=== PATIENT | female | born 1945 | race Caucasian/White ===

== ENCOUNTER → 2016-03-13 | Outpatient (REF) | payer MEDICARE ==
[~2016-03-13] MED LIST: /FENO48TA OR; ACET25TA5 PO; ACET500T37 PO; ACETAMINOPHEN PM PO; ADV250INH INH; ALBU17IN INH; ALBUTEROL INH; ALLE25CA OR; AMOX875T2 PO; APAP325T PO; AZIT250T3 PO; B-121KIT INJ; CALC1TAB40 PO; CIPR500S PO; CIPR500T3 PO; COMP1TAB PO; CYCL10TA PO; DOXY-278 PO; DOXY100C PO; ESTROPIPATE PO; FENO48TA2 PO; FLON1SPR; FLUTISP; HYDROCORTISONE0.5 % TOP; IPRA1SOL47 NEB; IPRASOL4 INH; K-TA1TAB PO; LANS30CA PO; MULT1TAB8 PO; OMEP20TA7 OR; ONDA1TAB15 PO; ONDA1TAB16 PO; OXYCO5TA PO; PANT40TA2 PO; PRED10TA PO; PRED20TA PO; PROBCAP4 PO; PROT1TAB2 PO; SLOWTAB2 PO; SULF500T2 PO; TYLE1TAB5 PO; VICO5TAB OR; VITAMIN D50000 UNT OR; VITMTA PO; VOLT1GEL24 TD; XANA0.25 PO; ZOVI5CRE4 EX; [UNRECOGNIZED DRUG - OTHER] PO
== END ==
LOC: M LAB REF 12:35
PROVIDERS: ATTEND Internal Medicine Medical Oncology
DX: C34.90 Malignant neoplasm of unspecified part of unspecified bronchus or lung (principal)

== ENCOUNTER → 2016-03-20 | Outpatient (REF) | payer MEDICARE | LOC: M LAB REF 12:14 | PROVIDERS: ATTEND Internal Medicine Medical Oncology | DX: C34.90 Malignant neoplasm of unspecified part of unspecified bronchus or lung (principal) ==

== ENCOUNTER 2016-03-29 12:23 | Inpatient (IN) | payer MEDICARE ==
[~2016-03-29] VITALS: Ht 167.6 cm; Wt 66.5 kg
[~2016-03-29 12:23] MED LIST changes: +OXYC-517 PO; -OXYCO5TA PO
[2016-03-29 14:20] LABS: BASO % 0.2 % (0.0-1.0); EOS % 0.5 % (0.0-3.0); LARGE UNSTAINED CELL # 0.2 K/mm3 (0.0-0.4); LARGE UNSTAINED CELL % 2.2 % (0.0-4.0); LYMPH # 1.1 K/mm3 (1.5-4.5); LYMPH % 10.1 % (24.0-44.0); MEAN CORPUSCULAR HEMOGLOBIN 35.8 pg (27.0-33.0); MEAN CORPUSCULAR VOLUME 96.6 fl (80.0-96.0); MONO # 0.6 K/mm3 (0.0-0.8); MONO % 6.5 % (0.0-5.0); NEUTROPHILS # 7.4 K/mm3 (1.8-7.7); NEUTROPHILS % 80.5 % (36.0-66.0); RED CELL DISTRIBUTION WIDTH 14.9 % (11.5-14.5); WHITE BLOOD COUNT 9.2 K/mm3 (4.0-10.0)
[2016-03-29] MEDS ORDERED: MAGN400T5 PO (14:28)
[2016-03-29] MEDS ORDERED: SERT25TA85 PO (14:28)
[2016-03-29] MEDS ORDERED: PROC10TA PO (14:28)
[2016-03-29] MEDS ORDERED: LEVA12INH INH (14:28)
[2016-03-29] MEDS ORDERED: PRED5TA PO (14:28)
[2016-03-29 14:30] LABS: ANION GAP 10 MEQ/L (8-16); BLOOD UREA NITROGEN 22 MG/DL (7-18); CALCIUM LEVEL 7.5 MG/DL (8.8-10.2); CARBON DIOXIDE LEVEL 26 MEQ/L (21-32); CHLORIDE LEVEL 103 MEQ/L (98-107); CREATININE FOR GFR 1.05 MG/DL (0.55-1.02); GLOMERULAR FILTRATION RATE 55.2 (>39); GLUCOSE, FASTING 93 MG/DL (83-110); SODIUM LEVEL 139 MEQ/L (136-145)
[2016-03-29] MEDS ORDERED: TYLE1TAB5 PO (14:32)
--- NOTE | 2016-03-29 14:38 | REP ---
CHEST, TWO VIEWS: HISTORY: Shortness of breath. COMPARISON: 11/28/2015. There is elevation of the right hemidiaphragm. A parenchymal density is present in the right perihilar region, right middle and lower lobes unchanged from the previous study consistent with scarring and postradiation change. The left lung is clear. The heart is normal in size. The pulmonary vasculature is normal in appearance. The bony structure is intact. An Infusaport catheter is present in the superior vena cava. IMPRESSION: Right perihilar , mid and lower lobe scarring and postradiation change unchanged compared to the previous study. Signed by Checo Rm MD 03/29/2016 02:39 P
[2016-03-29 14:39] LABS: MAGNESIUM LEVEL 0.9 MG/DL (1.8-2.4)
[2016-03-29 14:41] LABS: POTASSIUM SERUM 2.6 MEQ/L (3.5-5.1)
[2016-03-29] MEDS ORDERED: MAGNESIUM OXIDE 400 MG TAB (MAG-OX) As Ordered ONE (15:13)
[2016-03-29] MEDS ORDERED: KCL 10MEQ IN STERILE WATER 100ML As Ordered ONE ×2 (15:13→16:22)
[2016-03-29] MEDS ORDERED: POTASSIUM CHL PWD 20 MEQ PACKET As Ordered ONE (15:13)
[2016-03-29] MEDS ORDERED: MAGNESIUM SULFATE 1 GM/100 ML D5W BAG (10MG/ML) (J3475) As Ordered ONE (15:13)
[2016-03-29 15:18] LABS: PLATELET COUNT, AUTOMATED 57 k/mm3 (150-450)
--- NOTE | 2016-03-29 20:13 | EDDOCDS ---
Nurse's Notes [facility] Name: Carlee Lowe Age: 71 yrs Sex: Female : 1945 Arrival Date: 03/29/2016 Time: 12:23 Bed 10 Private MD: Pamela Cortez MD Diagnosis: Anemia in neoplastic disease;Hypokalemia;Hypomagnesemia;Dyspnea, unspecified-exertional Presentation: 03/29 12:33 Presenting complaint: Patient states: pt states was at DR Levy ---told likely is ms2 anemic due to inside of mouth pale--tried to get blood drawn outside of here (not open where pt rayray)t and told to come here. Adult Sepsis Screening: The patient does not have new or worsening altered mentation. Patient's respiratory rate is less than 22. Systolic blood pressure is greater than 100. Patient has a qSOFA score of 0- Negative Sepsis Screen. Suicide/Homicide risk assessment- the patient denies having any suicidal and/or homicidal ideations and does not present with any other emotional, behavioral or mental health complaints. Status: Patient is not a customer service rep or dependent. Transition of care: patient was not received from another setting of care. 12:33 Acuity: TOMMIE Level 3 ms2 12:33 Method Of Arrival: Walkin/Carried/Asstd ms2 Historical: - Allergies: NSAIDS (chron's exacerbation); OPIOID ANALGESICS (respiratory arrest); Remicade (serum sickness); sensitive to steroidspt on steroids now ---takes low dose; - Home Meds: 1. acetaminophen 325 mg Oral tab 2 tabs every 6 hours (Last dose: Unknown) 2. Advair Diskus 250-50 mcg/dose Inhl dsdv 1 puff 2 times per day new med, has not started (Last dose: 03/29/2016 09:00) 3. albuterol sulfate 90 mcg/actuation Inhl HFAA 2 puffs every 4-6 hours (Last dose: Unknown) 4. Compazine 10 mg Oral tab 1 tab as needed (Last dose: Unknown) 5. cyanocobalamin (vitamin B-12) 1,000 mcg/mL injection soln 1 mL once a month 6. cyclobenzaprine 10 mg Oral tab 1 tab as needed 7. DuoNeb 0.5 mg-3 mg(2.5 mg base)/3 mL Inhl nebu 3 mL twice a day (Last dose: Unknown) 8. fluticasone 50 mcg/actuation nasal spsn 2 sprays once daily (Last dose: Unknown) 9. multivitamin Oral cap 1 tab daily (Last dose: 03/28/2016 09:00) 10. ondansetron HCl 8 mg Oral tab 1 tab every 8 hours (Last dose: Unknown) 11. potassium chloride 20 mEq Oral TbER 1 tab once daily (Last dose: 03/28/2016 09:00) 12. prednisone 7mg Oral tab once daily (Last dose: 03/28/2016 09:00) 13. Protonix 40 mg Oral grps 1 packet once daily (Last dose: 03/28/2016 09:00) 14. Slow-Mag 71.5 mg Oral TbEC three times a day (Last dose: 03/28/2016 09:00) 15. Ventolin HFA 90 mcg/actuation Nebulizer HFAA 2 puffs every 4 hours (Last dose: 03/28/2016) 16. Voltaren 1% Oral twice a day (Last dose: Unknown) 17. Xanax 0.25 mg Oral tab 1 tab nightly (Last dose: Unknown) 18. Xopenex 1.25 mg/3 mL Inhl nebu 3 mL as needed (Last dose: Unknown) 19. Zoloft 25 mg Oral tab 1 tab once daily (Last dose: 03/28/2016 09:00) - PMHx: Actinic Keratosis; Anemia; Anxiety; Chron's Disease; dysplastic nevus; GERD; hyperglyceridemia; hyperlipidemia; Hypertension; hypokalemia; hypomagnesiemia; leukopenia; Lumbago; lung cancer; Osteoarthritis; pancytopenia; tachycardia; Vitamin B, D deficiency; - PSHx: abdominal; Hysterectomy; bowel resections; Cholecystectomy; Tonsillectomy; - Social history: Smoking status: Patient states former smoker of tobacco. No barriers to communication noted, The patient speaks fluent Senegalese. - Family history: Not pertinent. - : The pt / caregiver states he / she is not on anticoagulants. Home medication list is obtained from the patient. - Exposure Risk Screening:: None identified. Screenin:46 Screening information is obtained from the patient. Fall risk: No risks identified. ms2 Assistance ADL's: requires no assistance with activities of daily living. Abuse/DV Screen: The patient / caregiver reports he/she is: not in a situation that causes fear, pain or injury. Nutritional screening: No deficits noted. Advance Directives: Currently, there is no health care proxy. There is no active DNR order. There is no living will. There is no Power of Negative Checker. Advance directive information has not previously been placed in an [facility] medical record. Further advance directive information is declined. home support is adequate. Assessment: 14:00 General: Appears in no apparent distress, Behavior is appropriate for age, cooperative. hs1 Neurological: Reports weakness. Cardiovascular: Rhythm is regular. Respiratory: Airway is patent Respiratory effort is even, unlabored, Respiratory pattern is regular, symmetrical, Breath sounds are clear bilaterally. GI: Reports diarrhea, hx of chrons disease. Derm: Skin is pink, warm & dry. normal. 15:35 General: Appears in no apparent distress, comfortable, Behavior is appropriate for age, hs1 cooperative. Pain: Denies pain. Neurological: Level of Consciousness is awake, alert, obeys commands, Oriented to person, place, time, Stock Buyer are equal bilaterally Gait is steady. Cardiovascular: Rhythm is sinus rhythm No ectopy. Respiratory: No deficits noted. : No deficits noted. 16:45 Reassessment: Patient appears in no apparent distress at this time. Patient tolerating hs1 infusions well. Patient ambulated to restroom with no difficulty. Aware of admission status and that hospitalist and nursing staff will be in to ask questions and evaluate. Patient states she is hungry and food given. . 17:30 General: Appears in no apparent distress, comfortable, Behavior is appropriate for age, hs1 cooperative. Cardiovascular: Rhythm is sinus rhythm No ectopy. Respiratory: No deficits noted. Derm: No deficits noted. 18:02 General: Appears in no apparent distress, comfortable, Behavior is appropriate for age, hs1 cooperative, Pt tolerating blood transfusion started at 1740. Patient aware of all signs and symptoms of blood transfusion and will call out to nursing staff if needs arise or patient changes. . 19:07 General: Appears in no apparent distress, comfortable, Behavior is appropriate for age, hs1 cooperative, 1st unit of blood completed at this time. Patient resting with no issues having dinner at this time. . 19:48 General: Appears in no apparent distress, comfortable, Behavior is appropriate for age, ko2 cooperative. Pain: Denies pain. Neurological: Level of Consciousness is awake, alert, obeys commands. Respiratory: No deficits noted. Derm: No deficits noted. Vital Signs: 12:24 BP 121 / 64; Pulse 104; Resp 18 S; Temp 98.2(O); Pulse Ox 98% on R/A; Weight 65.32 kg dd6 (R); Height 5 ft. 6 in. (167.64 cm) (R); 15:48 BP 127 / 60 (auto/); hs1 15:48 Pulse 96 MON; Pulse Ox 98% ; hs1 16:08 BP 122 / 65 (auto/); hs1 16:08 Pulse 106 MON; Pulse Ox 98% ; hs1 17:36 Pulse 106 MON; Pulse Ox 97% ; hs1 17:37 BP 103 / 55 (auto/); hs1 17:53 Pulse 108 MON; Pulse Ox 96% ; hs1 17:54 BP 109 / 53 (auto/); hs1 18:15 BP 152 / 71 (auto/); ko2 18:17 Pulse 78 MON; Pulse Ox 98% ; ko2 18:57 BP 111 / 80 (auto/); hs1 18:57 Pulse 116 MON; Resp 18; Pain 0/10; hs1 12:24 Body Mass Index 23.24 (65.32 kg, 167.64 cm) dd6 Vitals: 12:24 Log In Time: March 29, 2016 at 12:22. dd6 ED Course: 12:24 Patient visited by Zenon Whittaker PCA. dd6 12:24 Pamela Cortez is Private Physician. dd6 12:24 Patient moved to Waiting dd6 12:27 Mariana Scott,RN is Primary Nurse. ms2 12:27 Patient moved to 10 ms2 12:33 Patient visited by Rafael Ring,JOSH. ms2 12:38 Triage Initiated ms2 12:46 The patient / caregiver is instructed regarding the plan of care and ED course. ms2 12:53 Shadia Cortez FNP is PHCP. le 12:55 Patient visited by Shadia Cortez FNP. le 12:55 Patient visited by Shadia Cortez FNP. le 13:43 Patient visited by Tay Perez PCA. jrd 13:43 EKG done. (by ED staff). Reviewed by Shadia JIMÉNEZ. jrd 14:45 Accessed using accessed w/ # 20 [place] needle, sterile technique, per hospital protocol. hs1 InfusaPort in patient's anterior aspect of right upper chest. Clean & dry. Dressing intact. Good blood return. Flushes easily. 14:53 Patient visited by Kaitlin Poole RN. hs1 15:31 Chest, 2 View (pa\E\lat) Returned. EDMS 15:37 Kirstie Steward is Hospitalizing Provider. le 16:42 [facility] Payment Agreement was scanned into [employer] and attached to record. jp5 18:07 No procedures done that require assistance. hs1 18:58 Harper Chavez,JOSH is Primary Nurse. ko2 Administered Medications: 15:23 Drug: Magnesium Oxide 400 mg [magnesium oxide 400 mg tablet (1 tabs)] Route: PO; hs1 15:23 Drug: Magnesium Sulfate 1 grams [magnesium sulfate 1 gram/100 mL in dextrose 5 % hs1 intravenous piggyback] {Co-Signature: srm (Rosa Rodgers RN).} Route: IVPB; Infused Over: 1 hrs; Site: Implantable Access Device; 16:43 Follow up: IV Intake: 100ml hs1 19:10 Follow up: IV Status: Completed infusion hs1 15:23 Drug: Potassium Chloride 40 mEq [potassium chloride 20 mEq oral packet (2 packets)] hs1 Route: PO; 15:23 Drug: Potassium Chloride in 100cc sterile water 20 mEq [potassium chloride 10 mEq/100 hs1 mL intravenous piggyback] {Co-Signature: uriel (Rosa Rodgers RN).} Route: IV; Rate: 100 mL/hr; Infused Over: 1 hrs; Site: Implantable Access Device; 16:41 Follow up: IV Status: Completed infusion; IV Intake: 200ml hs1 Intake: 16:41 IV: 200.00ml; Total: 200.00ml. hs1 16:43 IV: 100.00ml; Total: 300.00ml. hs1 19:09 IV: 450.00ml (PRBC); Total: 750.00ml. hs1 Order Results: Lab Order: CBC with Diff; SPEC'M 03/29/16 13:27 Test: WHITE BLOOD COUNT; Value: 9.2; Range: 4.0-10.0; Units: K/mm3; Status: F Test: RED BLOOD COUNT; Value: 2.29; Range: 4.00-5.40; Abnormal: Below low normal; Units: M/mm3; Status: F Test: HEMOGLOBIN; Value: 8.2; Range: 12.0-16.0; Abnormal: Below low normal; Units: g/dl; Status: F Test: HEMATOCRIT; Value: 22.1; Range: 36.0-47.0; Abnormal: Below low normal; Units: %; Status: F Test: MEAN CORPUSCULAR VOLUME; Value: 96.6; Range: 80.0-96.0; Abnormal: Above high normal; Units: fl; Status: F Test: MEAN CORPUSCULAR HEMOGLOBIN; Value: 35.8; Range: 27.0-33.0; Abnormal: Above high normal; Units: pg; Status: F Test: MEAN CORPUSCULAR HGB CONC; Value: 37.0; Range: 32.0-36.5; Abnormal: Above high normal; Units: g/dl; Status: F Test: RED CELL DISTRIBUTION WIDTH; Value: 14.9; Range: 11.5-14.5; Abnormal: Above high normal; Units: %; Status: F Test: PLATELET COUNT, AUTOMATED; Value: 57; Range: 150-450; Abnormal: Below low normal; Units: k/mm3; Status: F Test: NEUTROPHILS %; Value: 80.5; Range: 36.0-66.0; Abnormal: Above high normal; Units: %; Status: F Test: LYMPH %; Value: 10.1; Range: 24.0-44.0; Abnormal: Below low normal; Units: %; Status: F Test: MONO %; Value: 6.5; Range: 0.0-5.0; Abnormal: Above high normal; Units: %; Status: F Test: EOS %; Value: 0.5; Range: 0.0-3.0; Units: %; Status: F Test: BASO %; Value: 0.2; Range: 0.0-1.0; Units: %; Status: F Test: LARGE UNSTAINED CELL %; Value: 2.2; Range: 0.0-4.0; Units: %; Status: F Test: NEUTROPHILS #; Value: 7.4; Range: 1.8-7.7; Units: K/mm3; Status: F Test: LYMPH #; Value: 1.1; Range: 1.5-4.5; Abnormal: Below low normal; Units: K/mm3; Status: F Test: MONO #; Value: 0.6; Range: 0.0-0.8; Units: K/mm3; Status: F Test: EOS #; Value: 0.0; Range: 0.0-0.50; Units: K/mm3; Status: F Test: BASO #; Value: 0.0; Range: 0.0-0.2; Units: K/mm3; Status: F Test: LARGE UNSTAINED CELL #; Value: 0.2; Range: 0.0-0.4; Units: K/mm3; Status: F Lab Order: Type & Screen; SPEC'M 03/29/16 13:27 Test: BLOOD TYPE; Value: A POS; Status: F Test: AB SCREEN (INDIRECT DWAYNE)GEL; Value: POSITIVE; Status: F Lab Order: BMP; SPEC'M 03/29/16 13:27 Test: GLUCOSE, FASTING; Value: 93; Range: 83-110; Units: MG/DL; Status: F Test: BLOOD UREA NITROGEN; Value: 22; Range: 7-18; Abnormal: Above high normal; Units: MG/DL; Status: F Test: CREATININE FOR GFR; Value: 1.05; Range: 0.55-1.02; Abnormal: Above high normal; Units: MG/DL; Status: F Test: GLOMERULAR FILTRATION RATE; Value: 55.2; Range: >39; Status: F Test: SODIUM LEVEL; Value: 139; Range: 136-145; Units: MEQ/L; Status: F Test: POTASSIUM SERUM; Value: 2.6; Range: 3.5-5.1; Abnormal: Critical Low; Units: MEQ/L; Status: F Test: CHLORIDE LEVEL; Value: 103; Range: 98-107; Units: MEQ/L; Status: F Test: CARBON DIOXIDE LEVEL; Value: 26; Range: 21-32; Units: MEQ/L; Status: F Test: ANION GAP; Value: 10; Range: 8-16; Units: MEQ/L; Status: F Test: CALCIUM LEVEL; Value: 7.5; Range: 8.8-10.2; Abnormal: Below low normal; Units: MG/DL; Status: F Test Note: ; Units are mL/min/1.73 m2 Chronic Kidney Disease Staging per NKF: Stage I & II GFR >=60 Normal to Mildly Decreased Stage III GFR 30-59 Moderately Decreased Stage IV GFR 15-29 Severely Decreased Stage V GFR <15 Very Little GFR Left ESRD GFR <15 on [employer] DIRECTIONAL Lab Order: Magnesium Level; SPEC'M 03/29/16 13: Test: MAGNESIUM LEVEL; Value: 0.9; Range: 1.8-2.4; Abnormal: Critical Low; Units: MG/DL; Status: F Lab Order: Troponin; SPEC'M 03/29/16 Test: TROPONIN I; Value: < 0.02; Range: < 0.10; Units: NG/ML; Status: F Test Note: ; Troponin I Reference Interval for [employer] LOCI: 99th Percentile= 0.00-0.045 ng/ml Risk Stratification: <= 0.10 ng/ml Decreased Risk for Adverse Clinical Events. 0.10-1.50 ng/ml Increased Risk for Adverse Clinical Events. Evaluation of additional criterion and/or repeat testing in 2-6 hours is suggested to rule out myocardial damage. >= 1.50 ng/ml Indicative of Myocardial Injury. Lab Order: ANTIBODY IDENTIFICATION; SPEC'M 03/29/16:27 Test: ANTIBODY IDENTIFICATION; Value: Anti-K; Status: F Radiology Order: Chest, 2 View (pa\E\lat) Test: Chest, 2 View (pa\E\lat) REASON FOR EXAMINATION: Shortness of Breath; CHEST, TWO VIEWS:; ; HISTORY: Shortness of breath.; ; COMPARISON: 11/28/2015.; ; There is elevation of the right hemidiaphragm. A parenchymal density is present; in the right perihilar region, right middle and lower lobes unchanged from the; previous study consistent with scarring and postradiation change. The left lung; is clear. The heart is normal in size. The pulmonary vasculature is normal in; appearance. The bony structure is intact. An Infusaport catheter is present in; the superior vena cava.; ; IMPRESSION:; ; Right perihilar , mid and lower lobe scarring and postradiation change unchanged; compared to the previous study.; ; ; Signed by; Checo Rm MD 03/29/2016 02:39 P; Outcome: 15:37 Decision to Hospitalize by Provider. le 19:09 Condition: stable. hs1 20:09 Discharge Assessment: Patient awake, alert and oriented x 3. No cognitive and/or ko2 functional deficits noted. Patient verbalized understanding of disposition instructions. patient administered narcotics - no. The following High Risk Discharge criteria are identified: None. Admitted to PCU accompanied by nurse, accompanied by tech, via stretcher, on monitor, with chart. Admission hand-off: Report Faxed Fax receipt verified by Sherrill IMPROVEMENT LEADER. Property :Personal belongings accompany Pt. 20:10 No special radiology studies were completed. ko2 20:13 Patient left the ED. lilian Signatures: Dispatcher [employer] EDMS Rafael Ring,RN RN ms2 Soco Arita RN RN Shadia Gonzales, ICING AND GLAZE MAKER ICING AND GLAZE MAKER Zenon Dodson, EASEMENT MAN EASEMENT MAN dd6 Kaitlin Poole RN RN hs1 Harper Chavez RN RN ko2 Tay Perez, EASEMENT MAN EASEMENT MAN Warner Lovell jp5 Rosa Rodgers RN srm MTDD
--- NOTE | 2016-03-29 20:13 | EDDOCDS ---
Physician Documentation [facility] Name: Carlee Lowe Age: 71 yrs Sex: Female : 1945 Arrival Date: 03/29/2016 Time: 12:23 Bed 10 Private MD: Pamela Cortez MD Disposition: 03/29/16 15:37 Hospitalization ordered by Kirstie Steward for Observation. Preliminary diagnosis are Anemia in neoplastic disease, Hypokalemia, Hypomagnesemia, Dyspnea, unspecified - exertional. - Bed requested for PCU. - Status is Observation. mar - Condition is Stable. - Problem is new. - Symptoms are unchanged. Historical: - Allergies: NSAIDS (chron's exacerbation); OPIOID ANALGESICS (respiratory arrest); Remicade (serum sickness); sensitive to steroidspt on steroids now ---takes low dose; - Home Meds: 1. acetaminophen 325 mg Oral tab 2 tabs every 6 hours (Last dose: Unknown) 2. Advair Diskus 250-50 mcg/dose Inhl dsdv 1 puff 2 times per day new med, has not started (Last dose: 03/29/2016 09:00) 3. albuterol sulfate 90 mcg/actuation Inhl HFAA 2 puffs every 4-6 hours (Last dose: Unknown) 4. Compazine 10 mg Oral tab 1 tab as needed (Last dose: Unknown) 5. cyanocobalamin (vitamin B-12) 1,000 mcg/mL injection soln 1 mL once a month 6. cyclobenzaprine 10 mg Oral tab 1 tab as needed 7. DuoNeb 0.5 mg-3 mg(2.5 mg base)/3 mL Inhl nebu 3 mL twice a day (Last dose: Unknown) 8. fluticasone 50 mcg/actuation nasal spsn 2 sprays once daily (Last dose: Unknown) 9. multivitamin Oral cap 1 tab daily (Last dose: 03/28/2016 09:00) 10. ondansetron HCl 8 mg Oral tab 1 tab every 8 hours (Last dose: Unknown) 11. potassium chloride 20 mEq Oral TbER 1 tab once daily (Last dose: 03/28/2016 09:00) 12. prednisone 7mg Oral tab once daily (Last dose: 03/28/2016 09:00) 13. Protonix 40 mg Oral grps 1 packet once daily (Last dose: 03/28/2016 09:00) 14. Slow-Mag 71.5 mg Oral TbEC three times a day (Last dose: 03/28/2016 09:00) 15. Ventolin HFA 90 mcg/actuation Nebulizer HFAA 2 puffs every 4 hours (Last dose: 03/28/2016) 16. Voltaren 1% Oral twice a day (Last dose: Unknown) 17. Xanax 0.25 mg Oral tab 1 tab nightly (Last dose: Unknown) 18. Xopenex 1.25 mg/3 mL Inhl nebu 3 mL as needed (Last dose: Unknown) 19. Zoloft 25 mg Oral tab 1 tab once daily (Last dose: 03/28/2016 09:00) - PMHx: Actinic Keratosis; Anemia; Anxiety; Chron's Disease; dysplastic nevus; GERD; hyperglyceridemia; hyperlipidemia; Hypertension; hypokalemia; hypomagnesiemia; leukopenia; Lumbago; lung cancer; Osteoarthritis; pancytopenia; tachycardia; Vitamin B, D deficiency; - PSHx: abdominal; Hysterectomy; bowel resections; Cholecystectomy; Tonsillectomy; - Social history: Smoking status: Patient states former smoker of tobacco. No barriers to communication noted, The patient speaks fluent Macanese. - Family history: Not pertinent. - : The pt / caregiver states he / she is not on anticoagulants. Home medication list is obtained from the patient. - Exposure Risk Screening:: None identified. Vital Signs: 03/29 12:24 BP 121 / 64; Pulse 104; Resp 18 S; Temp 98.2(O); Pulse Ox 98% on R/A; Weight 65.32 kg / dd6 144.01 lbs (R); Height 5 ft. 6 in. (167.64 cm) (R); 15:48 BP 127 / 60 (auto/); hs1 15:48 Pulse 96 MON; Pulse Ox 98% ; hs1 16:08 BP 122 / 65 (auto/); hs1 16:08 Pulse 106 MON; Pulse Ox 98% ; hs1 17:36 Pulse 106 MON; Pulse Ox 97% ; hs1 17:37 BP 103 / 55 (auto/); hs1 17:53 Pulse 108 MON; Pulse Ox 96% ; hs1 17:54 BP 109 / 53 (auto/); hs1 18:15 BP 152 / 71 (auto/); ko2 18:17 Pulse 78 MON; Pulse Ox 98% ; ko2 18:57 BP 111 / 80 (auto/); hs1 18:57 Pulse 116 MON; Resp 18; Pain 0/10; hs1 12:24 Body Mass Index 23.24 (65.32 kg, 167.64 cm) dd6 MDM: 13:23 Misc. Nursing Order ordered. le 13:23 Orthostatic VS ordered. le 13:24 CBC with Diff Ordered. EDMS 13:24 BMP Ordered. EDMS 13:24 Magnesium Level Ordered. EDMS 13:24 Troponin Ordered. EDMS 13:24 Chest, 2 View (pa\E\lat) Ordered. EDMS 13:24 Type & Screen Ordered. EDMS 13:24 ECG WITH READING ER PHYS+CARDIAG ordered. EDMS 14:41 Magnesium Oxide 400 mg PO once ordered. le 14:41 Magnesium Sulfate 1 grams IVPB once over 1 hrs; administer over at least 1 hour ordered.le 14:41 Potassium Chloride Packet 40 mEq PO once ordered. le 14:41 Potassium Chloride in 100cc sterile water 20 mEq IV at 100 mL/hr once over 1 hrs le ordered. 14:42 BED REQUEST+ADM ordered. EDMS 14:42 Front Desk Manager/Pulse Ox/q 30 min VS ordered. le 15:20 BMP Reviewed. le 15:20 Magnesium Level Reviewed. le 15:20 Type & Screen Reviewed. le 15:20 Troponin Reviewed. le 15:20 CBC with Diff Reviewed. le 15:29 Transfuse 3 units PRBCs. Ensure ordered in lab. ordered. le 15:30 Type and Cross, Packed Cells Ordered. EDMS 16:02 ANTIBODY IDENTIFICATION Ordered. EDMS 16:42 [facility] Payment Agreement was scanned into [employer] and attached to record. jp5 16:42 Financial registration complete. jp5 17:07 REGULAR DIET ordered. EDMS 17:09 Admission / Observation Status ordered. EDMS 19:30 PHOSPHOROUS LEVEL Ordered. EDMS 19:31 CBC WITH DIFFERENTIAL Ordered. EDMS 19:31 COMPLETE COMPHRENSIVE METABOLI Ordered. EDMS 19:31 MAGNESIUM LEVEL Ordered. EDMS 19:48 POTASSIUM LEVEL Ordered. EDMS 19:48 CDIFF PCR Ordered. EDMS 19:51 ELECTROCARDIOGRAM ADULT ordered. EDMS Administered Medications: 15:23 Drug: Magnesium Oxide 400 mg [magnesium oxide 400 mg tablet (1 tabs)] Route: PO; hs1 15:23 Drug: Magnesium Sulfate 1 grams [magnesium sulfate 1 gram/100 mL in dextrose 5 % hs1 intravenous piggyback] {Co-Signature: uriel (Rosa Rodgers RN).} Route: IVPB; Infused Over: 1 hrs; Site: Implantable Access Device; 16:43 Follow up: IV Intake: 100ml hs1 19:10 Follow up: IV Status: Completed infusion hs1 15:23 Drug: Potassium Chloride 40 mEq [potassium chloride 20 mEq oral packet (2 packets)] hs1 Route: PO; 15:23 Drug: Potassium Chloride in 100cc sterile water 20 mEq [potassium chloride 10 mEq/100 hs1 mL intravenous piggyback] {Co-Signature: uriel (Rosa Rodgers RN).} Route: IV; Rate: 100 mL/hr; Infused Over: 1 hrs; Site: Implantable Access Device; 16:41 Follow up: IV Status: Completed infusion; IV Intake: 200ml hs1 Signatures: Dispatcher [employer] EDMS Rafael RingRN JOSH Arita, Soco Rubi, RN Shadia Giraldo FNP FNP le Ogden, Kari, RN RN ko2 Warner Frausto jp5 Andre Wyman RN RN sa Sherrill, Hannah RN hs1 Rosa Rodgers RN srm The chart was reviewed and I authenticate all verbal orders and agree with the evaluation and treatment provided.Corrections: (The following items were deleted from the chart) 14:43 13:43 BED REQUEST+ADM ordered. EDMS EDMS 15:36 15:31 TYPE & SCREEN ordered. EDMS EDMS Attachments: 16:42 [facility] Payment Agreement jp5 MTDD
--- NOTE | 2016-03-29 20:14 | HPE ---
DATE OF ADMISSION: 03/29/2016 PRIMARY CARE PROVIDER: Elizabeth Lobo SAP ADMINISTRATOR: Dr. eLvy ONCOLOGIST: Dr. Cortez REASON FOR ADMISSION: Vomiting and diarrhea. HISTORY OF PRESENT ILLNESS: The patient is a 71-year-old female with extensive past medical history, presented to the emergency room from Dr. Levy office after she was found to be anemic. She was instructed to present to the emergency room. On admission, the patient's blood pressure was stable at 121/64, pulse of 104. Hemoglobin of 8.2. Her baseline is around 12. The patient had some electrolyte abnormality as well, magnesium 0.9, potassium 2.6. The patient stated that usually after she gets chemo, she ends up having vomiting and diarrhea. She has been having vomiting and diarrhea for the past week, had her last chemo session 03/13/2016. In the emergency room, the patient was given potassium, magnesium run and packed RBCs were ordered for transfusion. The patient stated she is still having diarrhea. Denied any blood in the stool/black tarry stool. Stated her vomiting had resolved. She denied any chest pain or shortness of breath. Denied any abdominal pain. No dizziness or lightheadedness at this time. REVIEW OF SYSTEMS: Twelve-point review of systems was obtained all of which was negative except for those mentioned above. PAST MEDICAL HISTORY: Significant for: Non-small cell adenocarcinoma, stage III, of the lung. The patient had radiation last spring, currently getting chemotherapy with Dr. Cortez. She also follows up with Dr. Levy from pulmonology. The patient has a history of Crohn's disease. Gastroesophageal reflux disease. Hypertension. Hyperlipidemia. Hypokalemia. Hypomagnesemia. Pancytopenia. Tachycardia. Vitamin B and D deficiency. Osteoarthritis. PAST SURGICAL HISTORY: Significant for: Hysterectomy. Three bowel resections due to Crohn's. Tonsillectomy. Cholecystectomy. SOCIAL HISTORY: The patient denies tobacco, alcohol use. Lives at home alone. ALLERGIES: The patient has allergies to NONSTEROIDAL ANTI-INFLAMMATORY DRUGS (NSAIDS), OPIATES, REMICADE and STEROIDS. However, right now she is on low-dose prednisone, which is tolerating fine. FAMILY HISTORY: Noncontributory. PHYSICAL FINDINGS: Blood pressure on admission 129/64, pulse 104, respiratory rate 18, temperature 98.2, pulse oximetry 98% on room air. HEENT: Pupils equal, round, reactive. Neck: Supple. No jugular venous distention (JVD). Lungs: Diminished breath sounds diffusely. Cardiac: Tachycardiac. No murmurs appreciated. Abdomen: Soft, nontender, nondistended. Positive bowel sounds. Extremities: No clubbing, cyanosis or edema. Neurologic: Cranial nerves II-XII grossly intact. No focal deficits. LABORATORY FINDINGS: WBC 9.2, hemoglobin 8.2, hematocrit 22.1, platelet count 57. Sodium 139, potassium 2.6, chloride 103, BUN 22, creatinine 1.05, magnesium 0.9, troponin less than 0.02. Chest x-ray was done in the emergency room which showed right perihilar mid and lower lobe scarring, post radiation changes, unchanged compared to previous study which was done on 11/28/2015. ASSESSMENT AND PLAN: 1. Diarrhea. Likely secondary to chronic conditions, such as Crohn's or chemotherapy. We will order Clostridium difficile (C diff) to rule out any infectious etiology. Continue IV hydration and electrolyte replacement. 2. History of lung adenocarcinoma, status post chemo 2 weeks ago. 3. Hypomagnesemia. The patient received one magnesium (mag) run in the emergency room. We will recheck and replace if needed. 4. History of hypokalemia. The patient received 40 mEq of potassium in the emergency room. We will continue to replace through the IV. Repeat potassium level in the morning. 5. Anemia. The patient has chronic pancytopenia. Two units of packed red blood cells (RBCs) were ordered. She will be getting transfusion today. Will recheck hemoglobin and hematocrit in the morning. 6. History of hypertension. We will hold the current hypertensive medication due to the patient's current anemia. 7. Hyperlipidemia. Continue home medication. 8. Deep vein thrombosis (DVT) prophylaxis. Thromboembolism deterrents (TEDs) and sequentials.
[2016-03-29] MEDS ORDERED: FLUTICASONE PROP 0.05% NASAL SPRAY 16 GM (FLONASE) PRN (20:15)
[2016-03-29] MEDS ORDERED: ONDANSETRON 4 MG TAB (S0181) PO PRN (20:15)
[2016-03-29] MEDS ORDERED: ACETAMINOPHEN 500 MG TAB PO PRN (20:15)
[2016-03-29] MEDS ORDERED: ALBUTEROL 90 MCG/ACT 8GM HFA INHALER INH PRN (20:15)
[2016-03-29] MEDS ORDERED: CYCLOBENZAPRINE 10 MG TAB PO PRN (20:15)
[2016-03-29] MEDS ORDERED: ONDANSETRON 4MG/2ML VIAL (J2405) As Ordered ONE (20:26)
[2016-03-29 20:34] VITALS: BP 129/78
[2016-03-29] MEDS ORDERED: MAG SULF 1GM/100ML (MAG RUN) 1 GM in APPROPRIATE DILUENT 1 EA IV ONE (21:00)
[2016-03-29] MEDS: PANTOPRAZOLE 40MG TAB (PROTONIX) PO SCH (22:07)
[2016-03-29] MEDS: POTASSIUM CHLORIDE 10 MEQ SR TABLET PO SCH (22:07)
[2016-03-29] MEDS: SERTRALINE HCL 25 MG TABLET PO SCH (22:07)
[2016-03-29] MEDS: PROCHLORPERAZINE 5 MG TAB (S0183) PO PRN (22:34)
[2016-03-29] MEDS: ADVAIR DISKUS 250/50 INH PWD INH SCH (22:47)
[2016-03-29 22:50] LABS: INR 0.91
[2016-03-29] MEDS: LEVALBUTEROL 1.25 MG/0.5 ML CONCENTRATE NEB INH PRN (22:54)
[2016-03-29 22:58] LABS: CALCIUM LEVEL 7.3 MG/DL (8.8-10.2); GLOMERULAR FILTRATION RATE 58.4 (>39); POTASSIUM SERUM 2.9 MEQ/L (3.5-5.1)
[2016-03-29 23:47] LABS: MAGNESIUM LEVEL 1.1 MG/DL (1.8-2.4)
[2016-03-29] MEDS: ALPRAZolam 0.25 MG TAB PO PRN (23:48)
[2016-03-29 23:59] VITALS: BP 130/69
[2016-03-30] VITALS (7 sets, daily range): BP systolic 93–163; BP diastolic 56–89; PULSE 90
[2016-03-30] MEDS ORDERED: KCL 10MEQ IN 100ML SWI (KRUN) 10 MEQ in APPROPRIATE DILUENT 1 EA IV ONE ×2 (00:15)
[2016-03-30] MEDS: MAG SULF 1GM/100ML (MAG RUN) 1 GM in APPROPRIATE DILUENT 1 EA IV SCH ×4 (01:43→05:39)
[2016-03-30 06:03] LABS: BASO % 0.2 % (0.0-1.0); EOS # 0.1 K/mm3 (0.0-0.50); EOS % 1.1 % (0.0-3.0); LARGE UNSTAINED CELL # 0.2 K/mm3 (0.0-0.4); LARGE UNSTAINED CELL % 2.6 % (0.0-4.0); LYMPH # 0.8 K/mm3 (1.5-4.5); LYMPH % 11.1 % (24.0-44.0); MEAN CORPUSCULAR HEMOGLOBIN 34.5 pg (27.0-33.0); MEAN CORPUSCULAR VOLUME 95.9 fl (80.0-96.0); MONO # 0.3 K/mm3 (0.0-0.8); MONO % 4.8 % (0.0-5.0); NEUTROPHILS # 5.7 K/mm3 (1.8-7.7); NEUTROPHILS % 80.2 % (36.0-66.0); RED CELL DISTRIBUTION WIDTH 13.9 % (11.5-14.5); WHITE BLOOD COUNT 7.1 K/mm3 (4.0-10.0)
[2016-03-30 06:04] LABS: PLATELET COUNT, AUTOMATED 63 k/mm3 (150-450)
[2016-03-30 06:32] LABS: ALBUMIN 2.9 GM/DL (3.2-5.2); ALKALINE PHOSPHATASE 121 U/L (45-117); ALT/SGPT 42 U/L (12-78); ANION GAP 12 MEQ/L (8-16); AST/SGOT 21 U/L (15-37); BILIRUBIN,TOTAL 0.7 MG/DL (0.2-1.0); BLOOD UREA NITROGEN 15 MG/DL (7-18); CARBON DIOXIDE LEVEL 23 MEQ/L (21-32); CHLORIDE LEVEL 104 MEQ/L (98-107); CREATININE FOR GFR 0.92 MG/DL (0.55-1.02); GLOMERULAR FILTRATION RATE > 60.0 (>39); GLUCOSE, FASTING 129 MG/DL (83-110); MAGNESIUM LEVEL 3.1 MG/DL (1.8-2.4); PHOSPHORUS LEVEL 2.9 MG/DL (2.5-4.9); POTASSIUM SERUM 2.8 MEQ/L (3.5-5.1); SODIUM LEVEL 139 MEQ/L (136-145); TOTAL PROTEIN 5.8 GM/DL (6.4-8.2)
[2016-03-30] MEDS ORDERED: POTASSIUM CHLORIDE 10 MEQ SR TABLET PO ONE (06:45)
[2016-03-30] MEDS: ADVAIR DISKUS 250/50 INH PWD INH SCH ×2 (07:27→19:45)
[2016-03-30] MEDS: MAGNESIUM OXIDE 400 MG TAB (MAG-OX) PO SCH (07:57)
[2016-03-30] MEDS ORDERED: CALCIUM GLUCONATE 1,000 MG in D5W MINI-BAG PLUS 100 ML IV ONE (08:00)
--- NOTE | 2016-03-30 08:08 | ECGEPIP ---
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
--- NOTE | 2016-03-30 09:12 | ECGEPIP ---
Stationary ECG Study [facility] Test Date: 2016-03-30 Pat Name: LISA MCDONALD Department: Room: [place] [address] Gender: F [employer]: HIRAM : 1945 Requested By: MERLY OLGUIN Order Number: [id number] Reading MD: Ronnie Henriquez Measurements Intervals [place] Rate: 90 P: 40 VA: 205 QRS: -3 QRSD: 101 T: 30 QT: 358 QTc: 439 Interpretive Statements Normal sinus rhythm Low QRS complex voltage in the limb leads Consider prior IWMI Nonspecific T wave abnormality No significant change when compared to prior tracing of 03/29/2016 Electronically Signed On 03-30-2016 9:11:42 EST by Ronnie Henriquez
[2016-03-30] MEDS: predniSONE 1 MG TAB PO SCH (09:22)
[2016-03-30] MEDS: POTASSIUM CHLORIDE 10 MEQ SR TABLET PO SCH ×2 (09:22→21:14)
[2016-03-30] MEDS: MULTIVITAMINS/MINERALS THERAP 1 TAB PO SCH (09:22)
[2016-03-30] MEDS: predniSONE 5 MG TAB PO SCH (09:22)
[2016-03-30] MEDS ORDERED: SODIUM CHLORIDE 0.9% INJ 10 ML SYR IV PRN (11:45)
[2016-03-30] MEDS: SODIUM CHLORIDE 0.9% INJ 10 ML SYR IV SCH (12:05)
[2016-03-30 17:34] LABS: WHITE BLOOD COUNT 10.1 K/mm3 (4.0-10.0)
[2016-03-30 17:49] LABS: MEAN CORPUSCULAR HEMOGLOBIN 33.3 pg (27.0-33.0); MEAN CORPUSCULAR VOLUME 95.1 fl (80.0-96.0); RED CELL DISTRIBUTION WIDTH 15.1 % (11.5-14.5)
--- NOTE | 2016-03-30 19:52 | IPN ---
DATE: 03/30/2016 SUBJECTIVE: Patient seen and examined in the room today. The patient has a history of stage III [id number] lung cancer. The patient is seen by Dr. Cortez for chemotherapy. The patient just had her chemotherapy 03/13/2016. She has her chemo Qmonthly. Per patient, the patient always has gastrointestinal (GI) symptoms such as intractable nausea and vomiting and diarrhea from the chemotherapy. The patient does have a history of Crohn's disease. Due to her physical condition, the patient has not been able to tolerate any Crohn medications. Denies any recent antibiotic use. OBJECTIVE: VITAL SIGNS: Temperature is 95, pulse is 95, respiratory rate is 16, blood pressure 121/59. Pulse oximetry is 95% on room air. GENERAL: No sign of acute distress. Alert and oriented times three. Fatigued. HEENT: Normocephalic, atraumatic. Extraocular motor grossly intact. CARDIOVASCULAR: Positive S1, S2. Regular rate. No murmurs. LUNGS: Diminished breath sounds bilaterally. No wheezes appreciated. ABDOMEN: Soft, nontender, nondistended. Bowel sounds present. EXTREMITIES: No edema, cyanosis. LABORATORY DATA: WBC is 7.1, hemoglobin is 8.4, hematocrit is 23.4, platelet count is 63. Sodium is 139, potassium 2.8, chloride 104, carbon dioxide 23, BUN 15, creatinine 0.92, GFR greater than 60, fasting glucose 129, calcium is 7, phosphorus 2.9, magnesium 3.1, total bilirubin 0.7, AST 21, ALT 42, alkaline phosphatase 121. Total protein 5.8, albumin 2.9. ASSESSMENT AND PLAN: 1. Intractable nausea, vomiting and diarrhea. Most likely secondary due to her recent chemotherapy. The patient's Crohn's history also worsens the patient's gastrointestinal (GI) symptoms. Clostridium difficile results are pending. The patient is currently on aggressive intravenous (IV) hydration. 2. Stage 3 non-small cell lung cancer. In the middle of cancer treatment. Followed by Dr. Cortez 2. Severe hypokalemia secondary to her gastrointestinal symptoms. Initially, the patient has potassium of 2.6. Multiple potassium supplements being given. The repeated potassium is 3.4. The patient is monitored on telemetry. 3. Hypomagnesemia. Initially, the patient had a magnesium level of 0.9, which is critical value, and the patient also received multiple magnesium supplements. Most current magnesium level is 3.1 which is in the normal range now. 4. Acute renal injury, resolved after fluid resuscitation. The patient has stage III [id number] lung cancer. The patient just had her chemotherapy on 03/13/2016, and the patient has a scheduled followup with Dr. Cortez. 5. Pancytopenia. Currently the patient's hemoglobin averaging around 8.5, hematocrit averaging around 23. Platelet count is 63. No sign of active bleeding. The patient had two units of packed red blood cells transfusion. We will continue to monitor hemoglobin and hematocrit. 6. Crohn's disease. The patient is unable to tolerate any immunosuppressants for her Crohn's. The patient is currently taking prednisone 7 mg by mouth daily which is her home medication. Currently we will manage the patient conservatively for her symptoms. 7. History of hypertension, stable. 8. Gastroesophageal reflux disease, stable. 9. History of osteoarthritis. 10. History of dyslipidemia. 11. Deep venous thrombosis (DVT) prophylaxis. The patient has thrombocytopenia, currently on thromboembolism deterrent stockings (TEDs) and sequential compression devices. MTDD
[2016-03-30 20:02] LABS: PERCENT SATURATION 42.4 % (13.2-37.4)
[2016-03-30] MEDS: LEVALBUTEROL 1.25 MG/0.5 ML CONCENTRATE NEB INH PRN (20:28)
[2016-03-30] MEDS: SERTRALINE HCL 25 MG TABLET PO SCH (21:14)
[2016-03-30] MEDS: PANTOPRAZOLE 40MG TAB (PROTONIX) PO SCH (21:14)
[2016-03-30] MEDS ORDERED: POLYVINYL ALCOHOL OPHTH SOLN 15 ML(LIQUITEARS) OU PRN (22:15)
[2016-03-30] MEDS: PROCHLORPERAZINE 5 MG TAB (S0183) PO PRN (23:12)
[2016-03-31] VITALS: PULSE 97
[2016-03-31] MEDS: ALPRAZolam 0.25 MG TAB PO PRN (00:26)
[2016-03-31 04:00] VITALS: PULSE 92
[2016-03-31] MEDS: SODIUM CHLORIDE 0.9% INJ 10 ML SYR IV SCH (05:08)
[2016-03-31 05:35] LABS: BASO % 0.4 % (0.0-1.0); EOS # 0.1 K/mm3 (0.0-0.50); EOS % 0.7 % (0.0-3.0); LARGE UNSTAINED CELL # 0.2 K/mm3 (0.0-0.4); LARGE UNSTAINED CELL % 1.9 % (0.0-4.0); LYMPH % 9.2 % (24.0-44.0); MEAN CORPUSCULAR HEMOGLOBIN 33.6 pg (27.0-33.0); MEAN CORPUSCULAR VOLUME 98.8 fl (80.0-96.0); MONO # 0.5 K/mm3 (0.0-0.8); MONO % 5.3 % (0.0-5.0); NEUTROPHILS # 7.7 K/mm3 (1.8-7.7); NEUTROPHILS % 82.5 % (36.0-66.0); RED CELL DISTRIBUTION WIDTH 15.4 % (11.5-14.5); WHITE BLOOD COUNT 9.3 K/mm3 (4.0-10.0)
[2016-03-31 05:36] LABS: PLATELET COUNT, AUTOMATED 85 k/mm3 (150-450)
[2016-03-31 05:56] LABS: ALBUMIN 2.9 GM/DL (3.2-5.2); ALBUMIN/GLOBULIN RATIO 0.85 (1.00-1.93); ALKALINE PHOSPHATASE 119 U/L (45-117); ALT/SGPT 42 U/L (12-78); ANION GAP 10 MEQ/L (8-16); AST/SGOT 23 U/L (15-37); BILIRUBIN,TOTAL 0.5 MG/DL (0.2-1.0); BLOOD UREA NITROGEN 12 MG/DL (7-18); CALCIUM LEVEL 7.6 MG/DL (8.8-10.2); CARBON DIOXIDE LEVEL 24 MEQ/L (21-32); CHLORIDE LEVEL 108 MEQ/L (98-107); CREATININE FOR GFR 0.88 MG/DL (0.55-1.02); GLOMERULAR FILTRATION RATE > 60.0 (>39); GLUCOSE, FASTING 94 MG/DL (83-110); MAGNESIUM LEVEL 1.4 MG/DL (1.8-2.4); SODIUM LEVEL 142 MEQ/L (136-145); TOTAL PROTEIN 6.3 GM/DL (6.4-8.2)
[2016-03-31] MEDS ORDERED: SODIUM CHLORIDE 0.9% INJ 10 ML SYR IV SCH (06:00)
[2016-03-31] MEDS: MAG SULF 1GM/100ML (MAG RUN) 1 GM in APPROPRIATE DILUENT 1 EA IV SCH ×3 (07:42→09:48)
[2016-03-31 08:00] VITALS: BP 105/58
[2016-03-31] MEDS ORDERED: POTASSIUM CHLORIDE 10 MEQ SR TABLET PO ONE (08:00)
[2016-03-31] MEDS: ADVAIR DISKUS 250/50 INH PWD INH SCH (08:07)
[2016-03-31] MEDS: predniSONE 1 MG TAB PO SCH (09:47)
[2016-03-31] MEDS: predniSONE 5 MG TAB PO SCH (09:47)
[2016-03-31] MEDS: MAGNESIUM OXIDE 400 MG TAB (MAG-OX) PO SCH (09:47)
[2016-03-31] MEDS: POTASSIUM CHLORIDE 10 MEQ SR TABLET PO SCH (09:47)
[2016-03-31] MEDS: MULTIVITAMINS/MINERALS THERAP 1 TAB PO SCH (09:47)
[2016-03-31] MEDS ORDERED: POTA10PO PO (09:48)
[2016-03-31] MEDS ORDERED: MAGN400T2 PO (09:48)
[2016-03-31 12:00] VITALS: BP 121/68
[2016-03-31 12:26] LABS: MAGNESIUM LEVEL 2.6 MG/DL (1.8-2.4); POTASSIUM SERUM 3.2 MEQ/L (3.5-5.1)
--- NOTE | 2016-03-31 20:25 | DSES ---
DATE OF ADMISSION: 03/29/2016 DATE OF DISCHARGE: 03/31/2016 CONSULTANTS: None. PROCEDURES: None. COMPLICATIONS: None. ADMISSION/DISCHARGE DIAGNOSES: 1. Intractable nausea, vomiting, and diarrhea secondary to chemotherapy. 2. Severe hypokalemia secondary to gastrointestinal blood loss. 3. Hypomagnesemia. 4. Acute renal injury secondary to dehydration. 5. Pancytopenia. 6. Crohn's disease. 7. History of hypertension. 8. Gastroesophageal reflux disease (GERD). 9. Osteoarthritis. 10. Dyslipidemia. 11. Stage III non small cell lung cancer. HOSPITALIZATION COURSE: The patient is a 71-year-old female who presented to [facility] on 03/29/2016 for intractable nausea, vomiting and diarrhea. The patient was seen in Dr. Levy' office and the patient was found to have severe anemia. When the patient arrived in the emergency room, the patient was found to have a hemoglobin of 8.2, where her baseline is around 12. 2 units of leukocyte reduced packed red blood cells were ordered and transfused to the patient. The patient was also found to have severe hypokalemia with a potassium level of 2.9, magnesium level was also in the critical range of 0.9. Supplement given through IV. With medical management, the patient's GI symptoms showed gradual improvement. The patient was continued on aggressive hydration. On 03/31/2016, the had a stable hemoglobin and hematocrit, and her potassium level and magnesium level showed continued improvement, and the patient was determined to be ready for discharge with recommendations to continue to take elevated dose of potassium and magnesium. The patient should followup with Dr. Cortez in two days to discuss her non small cell lung cancer therapy. OBJECTIVE: VITAL SIGNS: Temperature is 97.3, pulse is 94, respirations 16, blood pressure 105/58, pulse oximetry is 94% on room air. LABORATORY DATA: WBC is 9.3, hemoglobin 10.3, hematocrit 30.4, platelet count is 85. Sodium is 142, potassium is 3.2, chloride 108, carbon dioxide 24, BUN is 12, creatinine 0.88, GFR greater than 60, fasting glucose 94, calcium is 7.6, magnesium is 2.6, total bilirubin 0.5, AST 23, ALT is 42, alkaline phosphatase 119, total protein 6.3, albumin 2.9. IMAGING STUDIES: Chest x-ray showed right perihilar and lower lobe scarring and post radiation changes. DISCHARGE MEDICATIONS: - magnesium oxide 400 mg by mouth twice a day - potassium chloride powder 40 mEq by mouth twice a day - Tylenol 1000 mg by mouth every 8 hours as needed - Ventolin two puff inhalation every 4 hours as needed - albuterol/ipratropium inhalation every 4 hours as needed - Xanax 0.25 mg by mouth at night for anxiety - B12 injection every month - cyclobenzaprine 10 mg by mouth three times a day as needed for muscle spasm - Flonase per nasal at night as needed - Xopenex inhalation four times a day as needed for shortness of breath - multivitamin one tablet by mouth daily - ondansetron 4 mg by mouth twice a day as needed for nausea and vomiting - Protonix 40 mg by mouth at night - prednisone 7 mg by mouth daily - prochlorperazine 10 mg by mouth as needed for nausea and vomiting - Advair Diskus one puff inhalation twice a day - sertraline 25 mg by mouth at night - sulfasalazine 500 mg by mouth at night DISCHARGE INSTRUCTIONS: Discontinue line. Discharge home. Activity as tolerated. Diet as tolerated. The patient will need to continue to take increased dose of potassium and magnesium for at least one week. The patient should get laboratories checked by the primary care provider in 2 days to evaluate her magnesium and potassium regimen. Discharge condition is stable. Discharge took greater than 30 minutes.
--- NOTE | 2016-03-31 21:13 | EDDOCDS ---
Nurse's Notes [facility] Name: Carlee Lowe Age: 71 yrs Sex: Female : 1945 Arrival Date: 03/29/2016 Time: 12:23 Bed 10 Private MD: Pamela Cortez MD Diagnosis: Anemia in neoplastic disease;Hypokalemia;Hypomagnesemia;Dyspnea, unspecified-exertional Presentation: 03/29 12:33 Presenting complaint: Patient states: pt states was at DR Levy ---told likely is ms2 anemic due to inside of mouth pale--tried to get blood drawn outside of here (not open where pt rayray)t and told to come here. Adult Sepsis Screening: The patient does not have new or worsening altered mentation. Patient's respiratory rate is less than 22. Systolic blood pressure is greater than 100. Patient has a qSOFA score of 0- Negative Sepsis Screen. Suicide/Homicide risk assessment- the patient denies having any suicidal and/or homicidal ideations and does not present with any other emotional, behavioral or mental health complaints. Status: Patient is not a service establishment attendant or dependent. Transition of care: patient was not received from another setting of care. 12:33 Acuity: TOMMIE Level 3 ms2 12:33 Method Of Arrival: Walkin/Carried/Asstd ms2 Historical: - Allergies: NSAIDS (chron's exacerbation); OPIOID ANALGESICS (respiratory arrest); Remicade (serum sickness); sensitive to steroidspt on steroids now ---takes low dose; - Home Meds: 1. acetaminophen 325 mg Oral tab 2 tabs every 6 hours (Last dose: Unknown) 2. Advair Diskus 250-50 mcg/dose Inhl dsdv 1 puff 2 times per day new med, has not started (Last dose: 03/29/2016 09:00) 3. albuterol sulfate 90 mcg/actuation Inhl HFAA 2 puffs every 4-6 hours (Last dose: Unknown) 4. Compazine 10 mg Oral tab 1 tab as needed (Last dose: Unknown) 5. cyanocobalamin (vitamin B-12) 1,000 mcg/mL injection soln 1 mL once a month 6. cyclobenzaprine 10 mg Oral tab 1 tab as needed 7. DuoNeb 0.5 mg-3 mg(2.5 mg base)/3 mL Inhl nebu 3 mL twice a day (Last dose: Unknown) 8. fluticasone 50 mcg/actuation nasal spsn 2 sprays once daily (Last dose: Unknown) 9. multivitamin Oral cap 1 tab daily (Last dose: 03/28/2016 09:00) 10. ondansetron HCl 8 mg Oral tab 1 tab every 8 hours (Last dose: Unknown) 11. potassium chloride 20 mEq Oral TbER 1 tab once daily (Last dose: 03/28/2016 09:00) 12. prednisone 7mg Oral tab once daily (Last dose: 03/28/2016 09:00) 13. Protonix 40 mg Oral grps 1 packet once daily (Last dose: 03/28/2016 09:00) 14. Slow-Mag 71.5 mg Oral TbEC three times a day (Last dose: 03/28/2016 09:00) 15. Ventolin HFA 90 mcg/actuation Nebulizer HFAA 2 puffs every 4 hours (Last dose: 03/28/2016) 16. Voltaren 1% Oral twice a day (Last dose: Unknown) 17. Xanax 0.25 mg Oral tab 1 tab nightly (Last dose: Unknown) 18. Xopenex 1.25 mg/3 mL Inhl nebu 3 mL as needed (Last dose: Unknown) 19. Zoloft 25 mg Oral tab 1 tab once daily (Last dose: 03/28/2016 09:00) - PMHx: Actinic Keratosis; Anemia; Anxiety; Chron's Disease; dysplastic nevus; GERD; hyperglyceridemia; hyperlipidemia; Hypertension; hypokalemia; hypomagnesiemia; leukopenia; Lumbago; lung cancer; Osteoarthritis; pancytopenia; tachycardia; Vitamin B, D deficiency; - PSHx: abdominal; Hysterectomy; bowel resections; Cholecystectomy; Tonsillectomy; - Social history: Smoking status: Patient states former smoker of tobacco. No barriers to communication noted, The patient speaks fluent [place]. - Family history: Not pertinent. - : The pt / caregiver states he / she is not on anticoagulants. Home medication list is obtained from the patient. - Exposure Risk Screening:: None identified. Screenin:46 Screening information is obtained from the patient. Fall risk: No risks identified. ms2 Assistance ADL's: requires no assistance with activities of daily living. Abuse/DV Screen: The patient / caregiver reports he/she is: not in a situation that causes fear, pain or injury. Nutritional screening: No deficits noted. Advance Directives: Currently, there is no health care proxy. There is no active DNR order. There is no living will. There is no Power of Tank Cooper. Advance directive information has not previously been placed in an [facility] medical record. Further advance directive information is declined. home support is adequate. Assessment: 14:00 General: Appears in no apparent distress, Behavior is appropriate for age, cooperative. hs1 Neurological: Reports weakness. Cardiovascular: Rhythm is regular. Respiratory: Airway is patent Respiratory effort is even, unlabored, Respiratory pattern is regular, symmetrical, Breath sounds are clear bilaterally. GI: Reports diarrhea, hx of chrons disease. Derm: Skin is pink, warm & dry. normal. 15:35 General: Appears in no apparent distress, comfortable, Behavior is appropriate for age, hs1 cooperative. Pain: Denies pain. Neurological: Level of Consciousness is awake, alert, obeys commands, Oriented to person, place, time, Allergist Immunologist are equal bilaterally Gait is steady. Cardiovascular: Rhythm is sinus rhythm No ectopy. Respiratory: No deficits noted. : No deficits noted. 16:45 Reassessment: Patient appears in no apparent distress at this time. Patient tolerating hs1 infusions well. Patient ambulated to restroom with no difficulty. Aware of admission status and that hospitalist and nursing staff will be in to ask questions and evaluate. Patient states she is hungry and food given. . 17:30 General: Appears in no apparent distress, comfortable, Behavior is appropriate for age, hs1 cooperative. Cardiovascular: Rhythm is sinus rhythm No ectopy. Respiratory: No deficits noted. Derm: No deficits noted. 18:02 General: Appears in no apparent distress, comfortable, Behavior is appropriate for age, hs1 cooperative, Pt tolerating blood transfusion started at 1740. Patient aware of all signs and symptoms of blood transfusion and will call out to nursing staff if needs arise or patient changes. . 19:07 General: Appears in no apparent distress, comfortable, Behavior is appropriate for age, hs1 cooperative, 1st unit of blood completed at this time. Patient resting with no issues having dinner at this time. . 19:48 General: Appears in no apparent distress, comfortable, Behavior is appropriate for age, ko2 cooperative. Pain: Denies pain. Neurological: Level of Consciousness is awake, alert, obeys commands. Respiratory: No deficits noted. Derm: No deficits noted. Vital Signs: 12:24 BP 121 / 64; Pulse 104; Resp 18 S; Temp 98.2(O); Pulse Ox 98% on R/A; Weight 65.32 kg dd6 (R); Height 5 ft. 6 in. (167.64 cm) (R); 15:48 BP 127 / 60 (auto/); hs1 15:48 Pulse 96 MON; Pulse Ox 98% ; hs1 16:08 BP 122 / 65 (auto/); hs1 16:08 Pulse 106 MON; Pulse Ox 98% ; hs1 17:36 Pulse 106 MON; Pulse Ox 97% ; hs1 17:37 BP 103 / 55 (auto/); hs1 17:53 Pulse 108 MON; Pulse Ox 96% ; hs1 17:54 BP 109 / 53 (auto/); hs1 18:15 BP 152 / 71 (auto/); ko2 18:17 Pulse 78 MON; Pulse Ox 98% ; ko2 18:57 BP 111 / 80 (auto/); hs1 18:57 Pulse 116 MON; Resp 18; Pain 0/10; hs1 12:24 Body Mass Index 23.24 (65.32 kg, 167.64 cm) dd6 Vitals: 12:24 Log In Time: March 29, 2016 at 12:22. dd6 ED Course: 12:24 Patient visited by Zenon Whittaker PCA. dd6 12:24 Pamela Cortez is Private Physician. dd6 12:24 Patient moved to Waiting dd6 12:27 Mariana Scott,RN is Primary Nurse. ms2 12:27 Patient moved to 10 ms2 12:33 Patient visited by Rafael Ring,JOSH. ms2 12:38 Triage Initiated ms2 12:46 The patient / caregiver is instructed regarding the plan of care and ED course. ms2 12:53 Shadia Cortez FNP is PHCP. le 12:55 Patient visited by Shadia Cortez FNP. le 12:55 Patient visited by Shadia Cortez FNP. le 13:43 Patient visited by Tay Perez PCA. jrd 13:43 EKG done. (by ED staff). Reviewed by Shadia JIMÉNEZ. jrd 14:45 Accessed using accessed w/ # 20 [place] needle, sterile technique, per hospital protocol. hs1 InfusaPort in patient's anterior aspect of right upper chest. Clean & dry. Dressing intact. Good blood return. Flushes easily. 14:53 Patient visited by Kaitlin Poole RN. hs1 15:31 Chest, 2 View (pa\E\lat) Returned. EDMS 15:37 Kirstie Steward is Hospitalizing Provider. le 16:42 [facility] Payment Agreement was scanned into [employer] and attached to record. jp5 18:07 No procedures done that require assistance. hs1 18:58 Harper Chavez,JOSH is Primary Nurse. ko2 03/30 12:42 T-Sheet-- Draft Copy was scanned into [employer] and attached to record. gb Administered Medications: 03/29 15:23 Drug: Magnesium Oxide 400 mg [magnesium oxide 400 mg tablet (1 tabs)] Route: PO; hs1 15:23 Drug: Magnesium Sulfate 1 grams [magnesium sulfate 1 gram/100 mL in dextrose 5 % hs1 intravenous piggyback] {Co-Signature: srm (Rosa Rodgers RN).} Route: IVPB; Infused Over: 1 hrs; Site: Implantable Access Device; 16:43 Follow up: IV Intake: 100ml hs1 19:10 Follow up: IV Status: Completed infusion hs1 15:23 Drug: Potassium Chloride 40 mEq [potassium chloride 20 mEq oral packet (2 packets)] hs1 Route: PO; 15:23 Drug: Potassium Chloride in 100cc sterile water 20 mEq [potassium chloride 10 mEq/100 hs1 mL intravenous piggyback] {Co-Signature: srm (Rosa Rodgers RN).} Route: IV; Rate: 100 mL/hr; Infused Over: 1 hrs; Site: Implantable Access Device; 16:41 Follow up: IV Status: Completed infusion; IV Intake: 200ml hs1 Intake: 16:41 IV: 200.00ml; Total: 200.00ml. hs1 16:43 IV: 100.00ml; Total: 300.00ml. hs1 19:09 IV: 450.00ml (PRBC); Total: 750.00ml. hs1 Order Results: Lab Order: CBC with Diff; SPEC'M 03/29/16 13:27 Test: WHITE BLOOD COUNT; Value: 9.2; Range: 4.0-10.0; Units: K/mm3; Status: F Test: RED BLOOD COUNT; Value: 2.29; Range: 4.00-5.40; Abnormal: Below low normal; Units: M/mm3; Status: F Test: HEMOGLOBIN; Value: 8.2; Range: 12.0-16.0; Abnormal: Below low normal; Units: g/dl; Status: F Test: HEMATOCRIT; Value: 22.1; Range: 36.0-47.0; Abnormal: Below low normal; Units: %; Status: F Test: MEAN CORPUSCULAR VOLUME; Value: 96.6; Range: 80.0-96.0; Abnormal: Above high normal; Units: fl; Status: F Test: MEAN CORPUSCULAR HEMOGLOBIN; Value: 35.8; Range: 27.0-33.0; Abnormal: Above high normal; Units: pg; Status: F Test: MEAN CORPUSCULAR HGB CONC; Value: 37.0; Range: 32.0-36.5; Abnormal: Above high normal; Units: g/dl; Status: F Test: RED CELL DISTRIBUTION WIDTH; Value: 14.9; Range: 11.5-14.5; Abnormal: Above high normal; Units: %; Status: F Test: PLATELET COUNT, AUTOMATED; Value: 57; Range: 150-450; Abnormal: Below low normal; Units: k/mm3; Status: F Test: NEUTROPHILS %; Value: 80.5; Range: 36.0-66.0; Abnormal: Above high normal; Units: %; Status: F Test: LYMPH %; Value: 10.1; Range: 24.0-44.0; Abnormal: Below low normal; Units: %; Status: F Test: MONO %; Value: 6.5; Range: 0.0-5.0; Abnormal: Above high normal; Units: %; Status: F Test: EOS %; Value: 0.5; Range: 0.0-3.0; Units: %; Status: F Test: BASO %; Value: 0.2; Range: 0.0-1.0; Units: %; Status: F Test: LARGE UNSTAINED CELL %; Value: 2.2; Range: 0.0-4.0; Units: %; Status: F Test: NEUTROPHILS #; Value: 7.4; Range: 1.8-7.7; Units: K/mm3; Status: F Test: LYMPH #; Value: 1.1; Range: 1.5-4.5; Abnormal: Below low normal; Units: K/mm3; Status: F Test: MONO #; Value: 0.6; Range: 0.0-0.8; Units: K/mm3; Status: F Test: EOS #; Value: 0.0; Range: 0.0-0.50; Units: K/mm3; Status: F Test: BASO #; Value: 0.0; Range: 0.0-0.2; Units: K/mm3; Status: F Test: LARGE UNSTAINED CELL #; Value: 0.2; Range: 0.0-0.4; Units: K/mm3; Status: F Lab Order: Type & Screen; SPEC'M 03/29/16 13:27 Test: BLOOD TYPE; Value: A POS; Status: F Test: AB SCREEN (INDIRECT DWAYNE)GEL; Value: POSITIVE; Status: F Lab Order: BMP; SPEC'M 03/29/16 13:27 Test: GLUCOSE, FASTING; Value: 93; Range: 83-110; Units: MG/DL; Status: F Test: BLOOD UREA NITROGEN; Value: 22; Range: 7-18; Abnormal: Above high normal; Units: MG/DL; Status: F Test: CREATININE FOR GFR; Value: 1.05; Range: 0.55-1.02; Abnormal: Above high normal; Units: MG/DL; Status: F Test: GLOMERULAR FILTRATION RATE; Value: 55.2; Range: >39; Status: F Test: SODIUM LEVEL; Value: 139; Range: 136-145; Units: MEQ/L; Status: F Test: POTASSIUM SERUM; Value: 2.6; Range: 3.5-5.1; Abnormal: Critical Low; Units: MEQ/L; Status: F Test: CHLORIDE LEVEL; Value: 103; Range: 98-107; Units: MEQ/L; Status: F Test: CARBON DIOXIDE LEVEL; Value: 26; Range: 21-32; Units: MEQ/L; Status: F Test: ANION GAP; Value: 10; Range: 8-16; Units: MEQ/L; Status: F Test: CALCIUM LEVEL; Value: 7.5; Range: 8.8-10.2; Abnormal: Below low normal; Units: MG/DL; Status: F Test Note: ; Units are mL/min/1.73 m2 Chronic Kidney Disease Staging per NKF: Stage I & II GFR >=60 Normal to Mildly Decreased Stage III GFR 30-59 Moderately Decreased Stage IV GFR 15-29 Severely Decreased Stage V GFR <15 Very Little GFR Left ESRD GFR <15 on MEN'S LOCKER ROOM ATTENDANT Lab Order: Magnesium Level; SPEC'M 03/29/16 13:27 Test: MAGNESIUM LEVEL; Value: 0.9; Range: 1.8-2.4; Abnormal: Critical Low; Units: MG/DL; Status: F Lab Order: Troponin; SPEC'M 03/29/16 13:27 Test: TROPONIN I; Value: < 0.02; Range: < 0.10; Units: NG/ML; Status: F Test Note: ; Troponin I Reference Interval for Bluetest LOCI: 99th Percentile= 0.00-0.045 ng/ml Risk Stratification: <= 0.10 ng/ml Decreased Risk for Adverse Clinical Events. 0.10-1.50 ng/ml Increased Risk for Adverse Clinical Events. Evaluation of additional criterion and/or repeat testing in 2-6 hours is suggested to rule out myocardial damage. >= 1.50 ng/ml Indicative of Myocardial Injury. Lab Order: ANTIBODY IDENTIFICATION; SPEC'M 03/29/16 13:27 Test: ANTIBODY IDENTIFICATION; Value: Anti-K; Status: F Radiology Order: Chest, 2 View (pa\E\lat) Test: Chest, 2 View (pa\E\lat) REASON FOR EXAMINATION: Shortness of Breath; CHEST, TWO VIEWS:; ; HISTORY: Shortness of breath.; ; COMPARISON: 11/28/2015.; ; There is elevation of the right hemidiaphragm. A parenchymal density is present; in the right perihilar region, right middle and lower lobes unchanged from the; previous study consistent with scarring and postradiation change. The left lung; is clear. The heart is normal in size. The pulmonary vasculature is normal in; appearance. The bony structure is intact. An Infusaport catheter is present in; the superior vena cava.; ; IMPRESSION:; ; Right perihilar , mid and lower lobe scarring and postradiation change unchanged; compared to the previous study.; ; ; Signed by; Checo Rm MD 03/29/2016 02:39 P; Outcome: 15:37 Decision to Hospitalize by Provider. le 19:09 Condition: stable. hs1 20:09 Discharge Assessment: Patient awake, alert and oriented x 3. No cognitive and/or ko2 functional deficits noted. Patient verbalized understanding of disposition instructions. patient administered narcotics - no. The following High Risk Discharge criteria are identified: None. Admitted to PCU accompanied by nurse, accompanied by tech, via stretcher, on monitor, with chart. Admission hand-off: Report Faxed Fax receipt verified by Sherrill [employer] SUPERVISOR. Property :Personal belongings accompany Pt. 20:10 No special radiology studies were completed. ko2 20:13 Patient left the ED. lilian Signatures: Dispatcher [employer] EDMS Rafael Ring,RN RN ms2 Soco Arita RN RN lilian Dee Arce, Reg Reg gb Diego, Shadia, CYBER SECURITY INSTRUCTOR CYBER SECURITY INSTRUCTOR le Zenon Whittaker, SHIRT MARKER SHIRT MARKER dd6 Kaitlin Poole RN RN hs1 Harper Chavez RN RN ko2 Tay Perez, SHIRT MARKER SHIRT MARKER d Warner Frausto jp5 Rosa Rodgers RN srm Chart Complete MTDD
--- NOTE | 2016-03-31 21:13 | EDDOCDS ---
Physician Documentation [facility] Name: Carlee Lowe Age: 71 yrs Sex: Female : 1945 Arrival Date: 03/29/2016 Time: 12:23 Bed 10 Private MD: Pamela Cortez MD Disposition: 03/29/16 15:37 Hospitalization ordered by Kirstie Steward for Observation. Preliminary diagnosis are Anemia in neoplastic disease, Hypokalemia, Hypomagnesemia, Dyspnea, unspecified - exertional. - Bed requested for PCU. - Status is Observation. mar - Condition is Stable. - Problem is new. - Symptoms are unchanged. Historical: - Allergies: NSAIDS (chron's exacerbation); OPIOID ANALGESICS (respiratory arrest); Remicade (serum sickness); sensitive to steroidspt on steroids now ---takes low dose; - Home Meds: 1. acetaminophen 325 mg Oral tab 2 tabs every 6 hours (Last dose: Unknown) 2. Advair Diskus 250-50 mcg/dose Inhl dsdv 1 puff 2 times per day new med, has not started (Last dose: 03/29/2016 09:00) 3. albuterol sulfate 90 mcg/actuation Inhl HFAA 2 puffs every 4-6 hours (Last dose: Unknown) 4. Compazine 10 mg Oral tab 1 tab as needed (Last dose: Unknown) 5. cyanocobalamin (vitamin B-12) 1,000 mcg/mL injection soln 1 mL once a month 6. cyclobenzaprine 10 mg Oral tab 1 tab as needed 7. DuoNeb 0.5 mg-3 mg(2.5 mg base)/3 mL Inhl nebu 3 mL twice a day (Last dose: Unknown) 8. fluticasone 50 mcg/actuation nasal spsn 2 sprays once daily (Last dose: Unknown) 9. multivitamin Oral cap 1 tab daily (Last dose: 03/28/2016 09:00) 10. ondansetron HCl 8 mg Oral tab 1 tab every 8 hours (Last dose: Unknown) 11. potassium chloride 20 mEq Oral TbER 1 tab once daily (Last dose: 03/28/2016 09:00) 12. prednisone 7mg Oral tab once daily (Last dose: 03/28/2016 09:00) 13. Protonix 40 mg Oral grps 1 packet once daily (Last dose: 03/28/2016 09:00) 14. Slow-Mag 71.5 mg Oral TbEC three times a day (Last dose: 03/28/2016 09:00) 15. Ventolin HFA 90 mcg/actuation Nebulizer HFAA 2 puffs every 4 hours (Last dose: 03/28/2016) 16. Voltaren 1% Oral twice a day (Last dose: Unknown) 17. Xanax 0.25 mg Oral tab 1 tab nightly (Last dose: Unknown) 18. Xopenex 1.25 mg/3 mL Inhl nebu 3 mL as needed (Last dose: Unknown) 19. Zoloft 25 mg Oral tab 1 tab once daily (Last dose: 03/28/2016 09:00) - PMHx: Actinic Keratosis; Anemia; Anxiety; Chron's Disease; dysplastic nevus; GERD; hyperglyceridemia; hyperlipidemia; Hypertension; hypokalemia; hypomagnesiemia; leukopenia; Lumbago; lung cancer; Osteoarthritis; pancytopenia; tachycardia; Vitamin B, D deficiency; - PSHx: abdominal; Hysterectomy; bowel resections; Cholecystectomy; Tonsillectomy; - Social history: Smoking status: Patient states former smoker of tobacco. No barriers to communication noted, The patient speaks fluent [place]ese. - Family history: Not pertinent. - : The pt / caregiver states he / she is not on anticoagulants. Home medication list is obtained from the patient. - Exposure Risk Screening:: None identified. Vital Signs: 03/29 12:24 BP 121 / 64; Pulse 104; Resp 18 S; Temp 98.2(O); Pulse Ox 98% on R/A; Weight 65.32 kg / dd6 144.01 lbs (R); Height 5 ft. 6 in. (167.64 cm) (R); 15:48 BP 127 / 60 (auto/); hs1 15:48 Pulse 96 MON; Pulse Ox 98% ; hs1 16:08 BP 122 / 65 (auto/); hs1 16:08 Pulse 106 MON; Pulse Ox 98% ; hs1 17:36 Pulse 106 MON; Pulse Ox 97% ; hs1 17:37 BP 103 / 55 (auto/); hs1 17:53 Pulse 108 MON; Pulse Ox 96% ; hs1 17:54 BP 109 / 53 (auto/); hs1 18:15 BP 152 / 71 (auto/); ko2 18:17 Pulse 78 MON; Pulse Ox 98% ; ko2 18:57 BP 111 / 80 (auto/); hs1 18:57 Pulse 116 MON; Resp 18; Pain 0/10; hs1 12:24 Body Mass Index 23.24 (65.32 kg, 167.64 cm) dd6 MDM: 13:23 Misc. Nursing Order ordered. le 13:23 Orthostatic VS ordered. le 13:24 CBC with Diff Ordered. EDMS 13:24 BMP Ordered. EDMS 13:24 Magnesium Level Ordered. EDMS 13:24 Troponin Ordered. EDMS 13:24 Chest, 2 View (pa\E\lat) Ordered. EDMS 13:24 Type & Screen Ordered. EDMS 13:24 ECG WITH READING ER PHYS+CARDIAG ordered. EDMS 14:41 Magnesium Oxide 400 mg PO once ordered. le 14:41 Magnesium Sulfate 1 grams IVPB once over 1 hrs; administer over at least 1 hour ordered.le 14:41 Potassium Chloride Packet 40 mEq PO once ordered. le 14:41 Potassium Chloride in 100cc sterile water 20 mEq IV at 100 mL/hr once over 1 hrs le ordered. 14:42 BED REQUEST+ADM ordered. EDMS 14:42 Potato Seed Cutter/Pulse Ox/q 30 min VS ordered. le 15:20 BMP Reviewed. le 15:20 Magnesium Level Reviewed. le 15:20 Type & Screen Reviewed. le 15:20 Troponin Reviewed. le 15:20 CBC with Diff Reviewed. le 15:29 Transfuse 3 units PRBCs. Ensure ordered in lab. ordered. le 15:30 Type and Cross, Packed Cells Ordered. EDMS 16:02 ANTIBODY IDENTIFICATION Ordered. EDMS 16:42 [facility] [place] was scanned into [employer] and attached to record. jp5 16:42 Financial registration complete. jp5 17:07 REGULAR DIET ordered. EDMS 17:09 Admission / Observation Status ordered. EDMS 19:30 PHOSPHOROUS LEVEL Ordered. EDMS 19:31 CBC WITH DIFFERENTIAL Ordered. EDMS 19:31 COMPLETE COMPHRENSIVE METABOLI Ordered. EDMS 19:31 MAGNESIUM LEVEL Ordered. EDMS 19:48 POTASSIUM LEVEL Ordered. EDMS 19:48 CDIFF PCR Ordered. EDMS 19:51 ELECTROCARDIOGRAM ADULT ordered. EDMS 03/30 12:42 T-Sheet-- Draft Copy was scanned into [employer] and attached to record. gb Administered Medications: 03/29 15:23 Drug: Magnesium Oxide 400 mg [magnesium oxide 400 mg tablet (1 tabs)] Route: PO; hs1 15:23 Drug: Magnesium Sulfate 1 grams [magnesium sulfate 1 gram/100 mL in dextrose 5 % hs1 intravenous piggyback] {Co-Signature: uriel (Rosa Rodgers RN).} Route: IVPB; Infused Over: 1 hrs; Site: Implantable Access Device; 16:43 Follow up: IV Intake: 100ml hs1 19:10 Follow up: IV Status: Completed infusion hs1 15:23 Drug: Potassium Chloride 40 mEq [potassium chloride 20 mEq oral packet (2 packets)] hs1 Route: PO; 15:23 Drug: Potassium Chloride in 100cc sterile water 20 mEq [potassium chloride 10 mEq/100 hs1 mL intravenous piggyback] {Co-Signature: uriel (Rosa Rodgers RN).} Route: IV; Rate: 100 mL/hr; Infused Over: 1 hrs; Site: Implantable Access Device; 16:41 Follow up: IV Status: Completed infusion; IV Intake: 200ml hs1 Signatures: Dispatcher [facility] EDMS Rafael Ring RN RN ms2 Soco Arita RN RN jan Barnhardt, Gloria, Reg Reg gb Shadia Cortez, Harper WiseRN [place] jp5 Andre Wyman RN RN sa Sherrill, Hannah RN hs1 Rosa trevino The chart was reviewed and I authenticate all verbal orders and agree with the evaluation and treatment provided.Corrections: (The following items were deleted from the chart) 14:43 13:43 BED REQUEST+ADM ordered. EDMS EDMS 15:36 15:31 TYPE & SCREEN ordered. EDMS EDMS Attachments: 16:42 [facility] Payment Agreement jp5 03/30 12:42 T-Sheet-- Draft Copy gb Chart Complete MTDD
--- NOTE | 2016-03-31 21:13 | EDDOCDS ---
Physician Documentation [facility] Name: Carlee Lowe Age: 71 yrs Sex: Female : 1945 Arrival Date: 03/29/2016 Time: 12:23 Bed 10 Private MD: Pamela Cortez MD Disposition: 03/29/16 15:37 Hospitalization ordered by Kirstie Steward for Observation. Preliminary diagnosis are Anemia in neoplastic disease, Hypokalemia, Hypomagnesemia, Dyspnea, unspecified - exertional. - Bed requested for PCU. - Status is Observation. mar - Condition is Stable. - Problem is new. - Symptoms are unchanged. Historical: - Allergies: NSAIDS (chron's exacerbation); OPIOID ANALGESICS (respiratory arrest); Remicade (serum sickness); sensitive to steroidspt on steroids now ---takes low dose; - Home Meds: 1. acetaminophen 325 mg Oral tab 2 tabs every 6 hours (Last dose: Unknown) 2. Advair Diskus 250-50 mcg/dose Inhl dsdv 1 puff 2 times per day new med, has not started (Last dose: 03/29/2016 09:00) 3. albuterol sulfate 90 mcg/actuation Inhl HFAA 2 puffs every 4-6 hours (Last dose: Unknown) 4. Compazine 10 mg Oral tab 1 tab as needed (Last dose: Unknown) 5. cyanocobalamin (vitamin B-12) 1,000 mcg/mL injection soln 1 mL once a month 6. cyclobenzaprine 10 mg Oral tab 1 tab as needed 7. DuoNeb 0.5 mg-3 mg(2.5 mg base)/3 mL Inhl nebu 3 mL twice a day (Last dose: Unknown) 8. fluticasone 50 mcg/actuation nasal spsn 2 sprays once daily (Last dose: Unknown) 9. multivitamin Oral cap 1 tab daily (Last dose: 03/28/2016 09:00) 10. ondansetron HCl 8 mg Oral tab 1 tab every 8 hours (Last dose: Unknown) 11. potassium chloride 20 mEq Oral TbER 1 tab once daily (Last dose: 03/28/2016 09:00) 12. prednisone 7mg Oral tab once daily (Last dose: 03/28/2016 09:00) 13. Protonix 40 mg Oral grps 1 packet once daily (Last dose: 03/28/2016 09:00) 14. Slow-Mag 71.5 mg Oral TbEC three times a day (Last dose: 03/28/2016 09:00) 15. Ventolin HFA 90 mcg/actuation Nebulizer HFAA 2 puffs every 4 hours (Last dose: 03/28/2016) 16. Voltaren 1% Oral twice a day (Last dose: Unknown) 17. Xanax 0.25 mg Oral tab 1 tab nightly (Last dose: Unknown) 18. Xopenex 1.25 mg/3 mL Inhl nebu 3 mL as needed (Last dose: Unknown) 19. Zoloft 25 mg Oral tab 1 tab once daily (Last dose: 03/28/2016 09:00) - PMHx: Actinic Keratosis; Anemia; Anxiety; Chron's Disease; dysplastic nevus; GERD; hyperglyceridemia; hyperlipidemia; Hypertension; hypokalemia; hypomagnesiemia; leukopenia; Lumbago; lung cancer; Osteoarthritis; pancytopenia; tachycardia; Vitamin B, D deficiency; - PSHx: abdominal; Hysterectomy; bowel resections; Cholecystectomy; Tonsillectomy; - Social history: Smoking status: Patient states former smoker of tobacco. No barriers to communication noted, The patient speaks fluent Cypriot. - Family history: Not pertinent. - : The pt / caregiver states he / she is not on anticoagulants. Home medication list is obtained from the patient. - Exposure Risk Screening:: None identified. Vital Signs: 03/29 12:24 BP 121 / 64; Pulse 104; Resp 18 S; Temp 98.2(O); Pulse Ox 98% on R/A; Weight 65.32 kg / dd6 144.01 lbs (R); Height 5 ft. 6 in. (167.64 cm) (R); 15:48 BP 127 / 60 (auto/); hs1 15:48 Pulse 96 MON; Pulse Ox 98% ; hs1 16:08 BP 122 / 65 (auto/); hs1 16:08 Pulse 106 MON; Pulse Ox 98% ; hs1 17:36 Pulse 106 MON; Pulse Ox 97% ; hs1 17:37 BP 103 / 55 (auto/); hs1 17:53 Pulse 108 MON; Pulse Ox 96% ; hs1 17:54 BP 109 / 53 (auto/); hs1 18:15 BP 152 / 71 (auto/); ko2 18:17 Pulse 78 MON; Pulse Ox 98% ; ko2 18:57 BP 111 / 80 (auto/); hs1 18:57 Pulse 116 MON; Resp 18; Pain 0/10; hs1 12:24 Body Mass Index 23.24 (65.32 kg, 167.64 cm) dd6 MDM: 13:23 Misc. Nursing Order ordered. le 13:23 Orthostatic VS ordered. le 13:24 CBC with Diff Ordered. EDMS 13:24 BMP Ordered. EDMS 13:24 Magnesium Level Ordered. EDMS 13:24 Troponin Ordered. EDMS 13:24 Chest, 2 View (pa\E\lat) Ordered. EDMS 13:24 Type & Screen Ordered. EDMS 13:24 ECG WITH READING ER PHYS+CARDIAG ordered. EDMS 14:41 Magnesium Oxide 400 mg PO once ordered. le 14:41 Magnesium Sulfate 1 grams IVPB once over 1 hrs; administer over at least 1 hour ordered.le 14:41 Potassium Chloride Packet 40 mEq PO once ordered. le 14:41 Potassium Chloride in 100cc sterile water 20 mEq IV at 100 mL/hr once over 1 hrs le ordered. 14:42 BED REQUEST+ADM ordered. EDMS 14:42 Woodworker/Pulse Ox/q 30 min VS ordered. le 15:20 BMP Reviewed. le 15:20 Magnesium Level Reviewed. le 15:20 Type & Screen Reviewed. le 15:20 Troponin Reviewed. le 15:20 CBC with Diff Reviewed. le 15:29 Transfuse 3 units PRBCs. Ensure ordered in lab. ordered. le 15:30 Type and Cross, Packed Cells Ordered. EDMS 16:02 ANTIBODY IDENTIFICATION Ordered. EDMS 16:42 [facility] [place] was scanned into [employer] and attached to record. jp5 16:42 Financial registration complete. jp5 17:07 REGULAR DIET ordered. EDMS 17:09 Admission / Observation Status ordered. EDMS 19:30 PHOSPHOROUS LEVEL Ordered. EDMS 19:31 CBC WITH DIFFERENTIAL Ordered. EDMS 19:31 COMPLETE COMPHRENSIVE METABOLI Ordered. EDMS 19:31 MAGNESIUM LEVEL Ordered. EDMS 19:48 POTASSIUM LEVEL Ordered. EDMS 19:48 CDIFF PCR Ordered. EDMS 19:51 ELECTROCARDIOGRAM ADULT ordered. EDMS 03/30 12:42 T-Sheet-- Draft Copy was scanned into [employer] and attached to record. gb Administered Medications: 03/29 15:23 Drug: Magnesium Oxide 400 mg [magnesium oxide 400 mg tablet (1 tabs)] Route: PO; hs1 15:23 Drug: Magnesium Sulfate 1 grams [magnesium sulfate 1 gram/100 mL in dextrose 5 % hs1 intravenous piggyback] {Co-Signature: uriel (Rosa Rodgers RN).} Route: IVPB; Infused Over: 1 hrs; Site: Implantable Access Device; 16:43 Follow up: IV Intake: 100ml hs1 19:10 Follow up: IV Status: Completed infusion hs1 15:23 Drug: Potassium Chloride 40 mEq [potassium chloride 20 mEq oral packet (2 packets)] hs1 Route: PO; 15:23 Drug: Potassium Chloride in 100cc sterile water 20 mEq [potassium chloride 10 mEq/100 hs1 mL intravenous piggyback] {Co-Signature: uriel (Rosa Rodgers RN).} Route: IV; Rate: 100 mL/hr; Infused Over: 1 hrs; Site: Implantable Access Device; 16:41 Follow up: IV Status: Completed infusion; IV Intake: 200ml hs1 Signatures: [facility] Rafael Ring RN RN ms2 Soco Arita RN RN jan Barnhardt, Gloria, Reg Reg gb Shadia Cortez, Harper WiseRN [place] jp5 Andre Wyman RN RN sa Sherrill, Hannah RN hs1 Rosa trevino The chart was reviewed and I authenticate all verbal orders and agree with the evaluation and treatment provided.Corrections: (The following items were deleted from the chart) 14:43 13:43 BED REQUEST+ADM ordered. EDMS EDMS 15:36 15:31 TYPE & SCREEN ordered. EDMS EDMS Attachments: 16:42 [facility] Payment Agreement [email or web address] 03/30 12:42 T-Sheet-- Draft Copy gb Chart Complete MTDD
[2016-04-01 11:16] LABS: FOLATE 15.6 NG/ML (>5.4)
== END 2016-03-31 13:45 | disposition home or self-care (01) | DRG 392 ==
LOC: M ED 12:23 → M ED INP 17:00 → M PCU 20:23
PROVIDERS: ADMIT Internal Medicine; ATTEND Internal Medicine
PROC: 30233N1 Transfusion of Nonautologous Red Blood Cells into Peripheral Vein, Percutaneous Approach (ICD-10-PCS; principal; 2016-03-29)
DX: R11.2 Nausea with vomiting, unspecified (principal); D61.818 Other pancytopenia; K92.2 Gastrointestinal hemorrhage, unspecified; N17.9 Acute kidney failure, unspecified; K50.90 Crohn's disease, unspecified, without complications; C34.91 Malignant neoplasm of unspecified part of right bronchus or lung; R19.7 Diarrhea, unspecified; T45.1X5A Adverse effect of antineoplastic and immunosuppressive drugs, initial encounter; E87.6 Hypokalemia; E86.0 Dehydration; E83.41 Hypermagnesemia; I10 Essential (primary) hypertension; K21.9 Gastro-esophageal reflux disease without esophagitis; E78.5 Hyperlipidemia, unspecified; M19.90 Unspecified osteoarthritis, unspecified site; D64.81 Anemia due to antineoplastic chemotherapy; Z79.52 Long term (current) use of systemic steroids; Z79.899 Other long term (current) drug therapy; Z92.3 Personal history of irradiation; Z90.710 Acquired absence of both cervix and uterus; Z90.49 Acquired absence of other specified parts of digestive tract; Z88.8 Allergy status to other drugs, medicaments and biological substances; Z88.5 Allergy status to narcotic agent

== ENCOUNTER → 2016-04-02 | Outpatient (REF) | payer MEDICARE ==
[~2016-04-02] MED LIST changes: +LEVA12INH INH; +MAGN400T2 PO; +MAGN400T5 PO; +POTA10PO PO; +PRED5TA PO; +PROC10TA PO; +SERT25TA85 PO
== END ==
LOC: M LAB REF 12:31
PROVIDERS: ATTEND Internal Medicine Medical Oncology
DX: C34.90 Malignant neoplasm of unspecified part of unspecified bronchus or lung (principal)

== ENCOUNTER → 2016-04-10 | Outpatient (REF) | payer MEDICARE ==
[~2016-04-10] MED LIST changes: +POTA10CA PO; +POTA20TA PO
== END ==
LOC: M LAB REF 13:01
PROVIDERS: ATTEND Internal Medicine Medical Oncology
DX: C34.90 Malignant neoplasm of unspecified part of unspecified bronchus or lung (principal)

== ENCOUNTER 2016-04-14 13:57 | Inpatient (IN) | payer MEDICARE ==
[~2016-04-14] VITALS: Ht 167.6 cm; Wt 67.3 kg
[2016-04-14] MEDS: MULTIVITAMINS/MINERALS THERAP 1 TAB PO SCH (09:00)
[~2016-04-14 13:57] MED LIST changes: -POTA10CA PO; -POTA20TA PO
[2016-04-14 15:18] LABS: BASO % 0.1 % (0.0-1.0); EOS # 0.1 K/mm3 (0.0-0.50); EOS % 0.3 % (0.0-3.0); LARGE UNSTAINED CELL # 0.1 K/mm3 (0.0-0.4); LARGE UNSTAINED CELL % 0.5 % (0.0-4.0); LYMPH # 0.4 K/mm3 (1.5-4.5); MEAN CORPUSCULAR HEMOGLOBIN 34.5 pg (27.0-33.0); MEAN CORPUSCULAR HGB CONC 35.3 g/dl (32.0-36.5); MEAN CORPUSCULAR VOLUME 97.9 fl (80.0-96.0); MONO # 0.4 K/mm3 (0.0-0.8); MONO % 2.2 % (0.0-5.0); NEUTROPHILS # 17.2 K/mm3 (1.8-7.7); NEUTROPHILS % 94.9 % (36.0-66.0); PLATELET COUNT, AUTOMATED 118 k/mm3 (150-450); RED CELL DISTRIBUTION WIDTH 15.8 % (11.5-14.5); WHITE BLOOD COUNT 18.1 K/mm3 (4.0-10.0)
[2016-04-14 15:57] LABS: ALBUMIN 3.6 GM/DL (3.2-5.2); ALBUMIN/GLOBULIN RATIO 1.16 (1.00-1.93); ALKALINE PHOSPHATASE 170 U/L (45-117); ALT/SGPT 67 U/L (12-78); ANION GAP 13 MEQ/L (8-16); AST/SGOT 48 U/L (15-37); BILIRUBIN,DIRECT 0.3 MG/DL (0.0-0.2); BILIRUBIN,TOTAL 1.5 MG/DL (0.2-1.0); BLOOD UREA NITROGEN 17 MG/DL (7-18); CALCIUM LEVEL 8.5 MG/DL (8.8-10.2); CARBON DIOXIDE LEVEL 26 MEQ/L (21-32); CHLORIDE LEVEL 101 MEQ/L (98-107); CREATININE FOR GFR 0.94 MG/DL (0.55-1.02); GLOMERULAR FILTRATION RATE > 60.0 (>39); GLUCOSE, FASTING 104 MG/DL (83-110); MAGNESIUM LEVEL 1.2 MG/DL (1.8-2.4); POTASSIUM SERUM 3.1 MEQ/L (3.5-5.1); SODIUM LEVEL 140 MEQ/L (136-145); TOTAL PROTEIN 6.7 GM/DL (6.4-8.2)
--- NOTE | 2016-04-14 16:53 | ECGEPIP ---
Stationary ECG Study [facility] - ED Test Date: 2016-04-14 Pat Name: LISA MCDONALD Department: Room: - Gender: F Medical Affairs Director: ct : 1945 Requested By: Liliana Reilly Order Number: [id number] Reading MD: Babar Manuel Measurements Intervals Napoleon Rate: 102 P: 10 IL: 160 QRS: 10 QRSD: 87 T: 32 QT: 329 QTc: 429 Interpretive Statements SINUS TACHYCARDIA POSSIBLE PRIOR INFERIOR INFARCT SIMILAR TO 03/30/16 Electronically Signed On 04-14-2016 16:53:00 EST by Babar Manuel
[2016-04-14] MEDS ORDERED: MAGNESIUM SULFATE 1 GM/100 ML D5W BAG (10MG/ML) (J3475) As Ordered ONE (17:19)
[2016-04-14] MEDS ORDERED: POTA10CA PO (17:56)
[2016-04-14] MEDS ORDERED: POTA20TA PO (17:56)
[2016-04-14] MEDS ORDERED: MAGN400T5 PO (17:56)
[2016-04-14] MEDS ORDERED: ALPRAZolam 0.25 MG TAB PO PRN (18:15)
[2016-04-14] MEDS ORDERED: ALBUTEROL 90 MCG/ACT 8GM HFA INHALER INH PRN (18:15)
[2016-04-14] MEDS ORDERED: LEVALBUTEROL 1.25 MG/0.5 ML CONCENTRATE NEB INH PRN (18:15)
[2016-04-14] MEDS ORDERED: FLUTICASONE PROP 0.05% NASAL SPRAY 16 GM (FLONASE) PRN (18:15)
[2016-04-14] MEDS ORDERED: CYCLOBENZAPRINE 10 MG TAB PO PRN (18:15)
[2016-04-14] MEDS ORDERED: IPRATROPIUM 0.5MG/ALBUTEROL 2.5MG INH SOL UD 3ML (DUONEB)(J7620) INH PRN (18:15)
--- NOTE | 2016-04-14 18:34 | EDDOCDS ---
Physician Documentation [facility] Name: Carlee Lowe Age: 71 yrs Sex: Female : 1945 Arrival Date: 04/14/2016 Time: 13:57 Bed 7 Private MD: Elizabeth Lobo Disposition: 04/14/16 17:13 Hospitalization ordered by Gurjit Allan for Inpatient Admission. Preliminary diagnosis are Hypokalemia, Hypomagnesemia, Dehydration. - [facility] - Status is Inpatient Admission. ja5 - Condition is Stable. - Problem is an acute exacerbation. - Symptoms are unchanged. Historical: - Allergies: NSAIDS (chron's exacerbation); OPIOID ANALGESICS (respiratory arrest); Remicade (serum sickness); sensitive to steroidspt on steroids now ---takes low dose; - Home Meds: 1. acetaminophen 325 mg Oral tab 2 tabs every 6 hours prn (Last dose: 04/14/2016 08:00) 2. Advair Diskus 250-50 mcg/dose Inhl dsdv 1 puff 2 times per day new med, has not started (Last dose: Unknown) 3. albuterol sulfate 90 mcg/actuation Inhl HFAA 2 puffs every 4-6 hours 4. cyclobenzaprine 10 mg Oral tab 1 tab as needed 5. fluticasone 50 mcg/actuation nasal spsn 2 sprays once daily (Last dose: 04/13/2016) 6. Xopenex 1.25 mg/3 mL Inhl nebu 3 mL as needed (Last dose: 04/13/2016) 7. multivitamin Oral cap 1 tab daily (Last dose: 04/13/2016) 8. Zofran (as hydrochloride) 4 mg Oral tab 2 times per day (Last dose: 04/14/2016 10:00) 9. pantoprazole 40 mg oral TbEC 1 tab once daily (Last dose: 04/13/2016) 10. Prednisone 7mg Oral once daily (Last dose: 04/14/2016 08:00) 11. prochlorperazine maleate 10 mg Oral tab (Last dose: 04/14/2016 06:00) 12. Zoloft 25 mg Oral tab 1 tab once daily (Last dose: 04/13/2016) 13. sulfasalazine 500 mg Oral tab 1 tab nightly (Last dose: 04/13/2016) 14. magnesium oxide 500 mg oral cap twice a day (Last dose: 04/14/2016 09:00) 15. potassium chloride 20 mEq Oral TbER 2 times per day (Last dose: 04/14/2016 09:00) 16. Xanax 0.25 mg Oral tab nightly (Last dose: Unknown) - PMHx: Hypertension; Chron's Disease; Actinic Keratosis; Anemia; Anxiety; GERD; dysplastic nevus; hyperglyceridemia; hyperlipidemia; hypokalemia; hypomagnesiemia; leukopenia; Lumbago; lung cancer; Osteoarthritis; pancytopenia; tachycardia; Vitamin B, D deficiency; - PSHx: abdominal; Hysterectomy; bowel resections; Cholecystectomy; Tonsillectomy; infusaport placement; - Social history: Smoking status: Patient states former smoker of tobacco. No barriers to communication noted, The patient speaks fluent Cape Verdean, Speaks appropriately for age. - Family history: Not pertinent. - : The pt / caregiver states he / she is not on anticoagulants. Home medication list is obtained from the patient. - Exposure Risk Screening:: None identified. Vital Signs: 04/14 13:58 BP 121 / 65; Pulse 113; Resp 18 S; Temp 98.4(O); Pulse Ox 96% on R/A; Weight 67.59 kg / gr2 149.01 lbs (R); Height 5 ft. 7 in. (170.18 cm) (R); Pain 4/10; 15:09 BP 131 / 80 Supine; Pulse 115; jc4 15:09 BP 117 / 64 Sitting; Pulse 117; jc4 15:09 BP 122 / 61 Standing; Pulse 121; jc4 17:53 BP 127 / 56; Pulse 115; Resp 16; Temp 100.0(TE); Pulse Ox 91% on R/A; Pain 5/10; ja5 18:25 BP 118 / 57; Pulse 95; Resp 20; Temp 99.9; Pulse Ox 92% on R/A; Pain 4/10; ja5 13:58 Body Mass Index 23.34 (67.59 kg, 170.18 cm) gr2 MDM: 14:39 Misc. Nursing Order ordered. sd1 14:39 NS 0.9% 1000 ml IV at bolus once ordered. sd1 14:39 Orthostatic VS ordered. sd1 14:39 ECG WITH READING ER PHYS+CARDIAG ordered. EDMS 14:40 Basic Metabolic Profile Ordered. EDMS 14:40 CBC with Diff Ordered. EDMS 14:40 Lipase Ordered. EDMS 14:40 Liver Profile Ordered. EDMS 14:40 Magnesium Level Ordered. EDMS 15:50 CBC with Diff Reviewed. sd1 15:53 GASTROINTESTINAL (GI) PANEL Ordered. EDMS 16:00 Financial registration complete. [email or web address] 16:00 [facility] Payment Agreement was scanned into [employer] and attached to record. [email or web address] 17:04 Basic Metabolic Profile Reviewed. sd1 17:04 Liver Profile Reviewed. sd1 17:04 Magnesium Level Reviewed. sd1 17:04 Lipase Reviewed. sd1 17:05 Magnesium Sulfate 1 grams IVPB once over 1 hrs; administer over at least 1 hour ordered.sd1 17:05 Potassium Chloride in 100cc sterile water 10 mEq IV at 100 mL/hr once over 1 hrs sd1 ordered. 17:06 BED REQUEST+ADM ordered. EDMS 17:38 PORTABLE CHEST X-RAY Ordered. EDMS 17:38 Admission / Observation Status ordered. EDMS 17:39 URINALYSIS Ordered. EDMS 17:39 OSMOLARITY STOOL Ordered. EDMS 17:39 STOOL POTASSIUM Ordered. EDMS 17:39 STOOL SODIUM Ordered. EDMS 17:39 STOOL CHLORIDE Ordered. EDMS 17:39 CALPROTECTIN STOOL Ordered. EDMS 17:39 URINE CULTURE Ordered. EDMS 17:39 BLOOD CULTURES Ordered. EDMS 17:40 STOOL POLYS Ordered. EDMS 18:10 CLEAR LIQUIDS DIET ordered. EDMS Administered Medications: 15:12 Drug: NS 0.9% 1000 ml [sodium chloride 0.9 % intravenous solution] Route: IV; Rate: ja5 bolus; Site: Implantable Access Device; 16:12 Follow up: IV Status: Completed infusion; IV Intake: 1000ml jc4 17:27 Drug: Magnesium Sulfate 1 grams [magnesium sulfate 1 gram/100 mL in dextrose 5 % jc4 intravenous piggyback] {Co-Signature: radha (Angella Wasserman RN).} Route: IVPB; Infused Over: 1 hrs; Site: Implantable Access Device; 18:29 Drug: Potassium Chloride in 100cc sterile water 10 mEq [potassium chloride 10 mEq/100 jc4 mL intravenous piggyback] {Co-Signature: radha (Angella Wasserman RN).} Route: IV; Rate: 100 mL/hr; Infused Over: 1 hrs; Site: Implantable Access Device; Signatures: Dispatcher [employer] EDMS Liliana Reilly MD MD sd1 Rosa Rodgers RN RN [facility] Madeline Mclaughlin RN RN sls2 Donna Stone, Reg Reg ks16 Angella Wasserman RN RN ja5 Brandi Mc RN jc4 Angella chester5 The chart was reviewed and I authenticate all verbal orders and agree with the evaluation and treatment provided.Corrections: (The following items were deleted from the chart) 15:52 15:51 GASTROINTESTINAL (GI) PANEL+ADA ordered. EDMS EDMS Attachments: 16:00 [facility] [place] Payment Agreement [email or web address] MTDD
--- NOTE | 2016-04-14 18:34 | EDDOCDS ---
Nurse's Notes [facility] Name: Carlee Lowe Age: 71 yrs Sex: Female : 1945 Arrival Date: 04/14/2016 Time: 13:57 Bed 7 Private MD: Elizabeth Lobo Diagnosis: Hypokalemia;Hypomagnesemia;Dehydration Presentation: 04/14 14:01 Presenting complaint: Presenting complaint: Patient states: was admitted mar 29 for srm anemia, hypokalemia and hypo magnesium. weak, cant stand im quite sure i have low potassium and magnesium. my mouth is dry. pain in right upper lung. 14:01 Adult Sepsis Screening: The patient does not have new or worsening altered mentation. srm Patient's respiratory rate is less than 22. Systolic blood pressure is greater than 100. Patient has a qSOFA score of 0- Negative Sepsis Screen. Suicide/Homicide risk assessment- the patient denies having any suicidal and/or homicidal ideations and does not present with any other emotional, behavioral or mental health complaints. Status: Patient is not a service now developer or dependent. Transition of care: patient was not received from another setting of care. 14:01 Acuity: TOMMIE Level 3 [facility] 14:01 Method Of Arrival: Wheelchair [facility] Triage Assessment: 14:10 General: Appears in no apparent distress, Behavior is appropriate for age, cooperative. srm Pain: Pain currently is 5 out of 10 on a pain scale. GI: Reports nausea, vomiting. Historical: - Allergies: NSAIDS (chron's exacerbation); OPIOID ANALGESICS (respiratory arrest); Remicade (serum sickness); sensitive to steroidspt on steroids now ---takes low dose; - Home Meds: 1. acetaminophen 325 mg Oral tab 2 tabs every 6 hours prn (Last dose: 04/14/2016 08:00) 2. Advair Diskus 250-50 mcg/dose Inhl dsdv 1 puff 2 times per day new med, has not started (Last dose: Unknown) 3. albuterol sulfate 90 mcg/actuation Inhl HFAA 2 puffs every 4-6 hours 4. cyclobenzaprine 10 mg Oral tab 1 tab as needed 5. fluticasone 50 mcg/actuation nasal spsn 2 sprays once daily (Last dose: 04/13/2016) 6. Xopenex 1.25 mg/3 mL Inhl nebu 3 mL as needed (Last dose: 04/13/2016) 7. multivitamin Oral cap 1 tab daily (Last dose: 04/13/2016) 8. Zofran (as hydrochloride) 4 mg Oral tab 2 times per day (Last dose: 04/14/2016 10:00) 9. pantoprazole 40 mg oral TbEC 1 tab once daily (Last dose: 04/13/2016) 10. Prednisone 7mg Oral once daily (Last dose: 04/14/2016 08:00) 11. prochlorperazine maleate 10 mg Oral tab (Last dose: 04/14/2016 06:00) 12. Zoloft 25 mg Oral tab 1 tab once daily (Last dose: 04/13/2016) 13. sulfasalazine 500 mg Oral tab 1 tab nightly (Last dose: 04/13/2016) 14. magnesium oxide 500 mg oral cap twice a day (Last dose: 04/14/2016 09:00) 15. potassium chloride 20 mEq Oral TbER 2 times per day (Last dose: 04/14/2016 09:00) 16. Xanax 0.25 mg Oral tab nightly (Last dose: Unknown) - PMHx: Hypertension; Chron's Disease; Actinic Keratosis; Anemia; Anxiety; GERD; dysplastic nevus; hyperglyceridemia; hyperlipidemia; hypokalemia; hypomagnesiemia; leukopenia; Lumbago; lung cancer; Osteoarthritis; pancytopenia; tachycardia; Vitamin B, D deficiency; - PSHx: abdominal; Hysterectomy; bowel resections; Cholecystectomy; Tonsillectomy; infusaport placement; - Social history: Smoking status: Patient states former smoker of tobacco. No barriers to communication noted, The patient speaks fluent Ukrainian, Speaks appropriately for age. - Family history: Not pertinent. - : The pt / caregiver states he / she is not on anticoagulants. Home medication list is obtained from the patient. - Exposure Risk Screening:: None identified. Screenin:16 Screening information is obtained from the patient. Fall risk: At risk due to prior ja5 history of falls. Assistance ADL's: requires no assistance with activities of daily living. Abuse/DV Screen: The patient / caregiver reports he/she is: not in a situation that causes fear, pain or injury. Nutritional screening: On no prescribed diet. Advance Directives: Currently, there is no health care proxy. There is no active DNR order. There is no living will. There is no Power of Coat Baster. home support is adequate. Assessment: 14:18 General: Appears in no apparent distress, Behavior is appropriate for age, cooperative. ja5 Pain: Location: right posterior lower chest wall and all joints Pain currently is 6 out of 10 on a pain scale. Neurological: Level of Consciousness is awake, alert, Oriented to person, place, time. Cardiovascular: Capillary refill < 3 seconds Heart tones S1 S2 present. Respiratory: Airway is patent Respiratory effort is even, unlabored. GI: Abdomen is non- distended Bowel sounds present X 4 quads. Abd is soft X 4 quads Abd is tender to palpation X 4 quads. Reports nausea. Derm: Skin is intact, Skin is pink, warm & dry. 15:22 General: Dr. Quiroga notified of orthostatic BP results. Patient stated they were dizzy ja5 upon standing, provider aware.. 18:23 General: Appears in no apparent distress, Behavior is appropriate for age, cooperative. ja5 Neurological: Level of Consciousness is awake, alert, Oriented to person, place, time. Cardiovascular: Capillary refill < 3 seconds. Respiratory: Airway is patent Respiratory effort is even, unlabored. Derm: Skin is intact, Skin is pink, warm & dry. 18:24 General: Report received in PCU, patient will be transferred via stretcher on cardiac ja5 monitor. . Vital Signs: 13:58 BP 121 / 65; Pulse 113; Resp 18 S; Temp 98.4(O); Pulse Ox 96% on R/A; Weight 67.59 kg gr2 (R); Height 5 ft. 7 in. (170.18 cm) (R); Pain 4/10; 15:09 BP 131 / 80 Supine; Pulse 115; jc4 15:09 BP 117 / 64 Sitting; Pulse 117; jc4 15:09 BP 122 / 61 Standing; Pulse 121; jc4 17:53 BP 127 / 56; Pulse 115; Resp 16; Temp 100.0(TE); Pulse Ox 91% on R/A; Pain 5/10; ja5 18:25 BP 118 / 57; Pulse 95; Resp 20; Temp 99.9; Pulse Ox 92% on R/A; Pain 4/10; ja5 13:58 Body Mass Index 23.34 (67.59 kg, 170.18 cm) gr2 Vitals: 13:58 Log In Time: April 14, 2016 at 13:58. gr2 ED Course: 13:58 Patient visited by Keaton Morales. gr2 13:58 Elizabeth Lobo is Private Physician. gr2 13:58 Patient moved to Waiting gr2 14:01 Patient visited by Keaton Morales. gr2 14:01 Patient moved to Pre RCE gr2 14:04 Triage Initiated srm 14:11 Angella Wasserman,RN is Primary Nurse. srm 14:11 Brandi Mc, RN is Primary Nurse. srm 14:11 Patient moved to 7 srm 14:19 Liliana Reilly MD is Attending Physician. sd1 14:25 The patient / caregiver is instructed regarding the plan of care and ED course. ja5 14:29 Patient visited by Liliana Reilly MD. sd1 14:47 Patient visited by Phuong Cope PCA. ct3 14:47 EKG done. (by ED staff). Reviewed by Liliana Reilly MD. ct3 15:12 Patient visited by Angella Wasserman RN. ja5 15:13 Accessed using accessed w/ # 20 [place] needle, sterile technique, per hospital protocol. ja5 InfusaPort in patient's anterior aspect of right upper chest. Clean & dry. Dressing intact. Good blood return. Flushes easily. 16:00 [facility] Payment Agreement was scanned into [employer] and attached to record. ks16 16:12 Patient visited by Brandi Mc RN. jc4 17:13 Gurjit Allan is Hospitalizing Provider. sd1 17:19 EKG-ADULT Returned. EDMS 18:27 No procedures done that require assistance. ja5 Administered Medications: 15:12 Drug: NS 0.9% 1000 ml [sodium chloride 0.9 % intravenous solution] Route: IV; Rate: ja5 bolus; Site: Implantable Access Device; 16:12 Follow up: IV Status: Completed infusion; IV Intake: 1000ml jc4 17:27 Drug: Magnesium Sulfate 1 grams [magnesium sulfate 1 gram/100 mL in dextrose 5 % jc4 intravenous piggyback] {Co-Signature: ja5 (Angella Wasserman RN).} Route: IVPB; Infused Over: 1 hrs; Site: Implantable Access Device; 18:29 Drug: Potassium Chloride in 100cc sterile water 10 mEq [potassium chloride 10 mEq/100 jc4 mL intravenous piggyback] {Co-Signature: radha (Angella Wasserman RN).} Route: IV; Rate: 100 mL/hr; Infused Over: 1 hrs; Site: Implantable Access Device; Intake: 16:12 IV: 1000.00ml; Total: 1000.00ml. jc4 Order Results: Lab Order: Basic Metabolic Profile; SPEC'M 04/14/16 15:05 Test: GLUCOSE, FASTING; Value: 104; Range: 83-110; Units: MG/DL; Status: F Test: BLOOD UREA NITROGEN; Value: 17; Range: 7-18; Units: MG/DL; Status: F Test: CREATININE FOR GFR; Value: 0.94; Range: 0.55-1.02; Units: MG/DL; Status: F Test: GLOMERULAR FILTRATION RATE; Value: > 60.0; Range: >39; Status: F Test: SODIUM LEVEL; Value: 140; Range: 136-145; Units: MEQ/L; Status: F Test: POTASSIUM SERUM; Value: 3.1; Range: 3.5-5.1; Abnormal: Below low normal; Units: MEQ/L; Status: F Test: CHLORIDE LEVEL; Value: 101; Range: 98-107; Units: MEQ/L; Status: F Test: CARBON DIOXIDE LEVEL; Value: 26; Range: 21-32; Units: MEQ/L; Status: F Test: ANION GAP; Value: 13; Range: 8-16; Units: MEQ/L; Status: F Test: CALCIUM LEVEL; Value: 8.5; Range: 8.8-10.2; Abnormal: Below low normal; Units: MG/DL; Status: F Test Note: ; Units are mL/min/1.73 m2 Chronic Kidney Disease Staging per NKF: Stage I & II GFR >=60 Normal to Mildly Decreased Stage III GFR 30-59 Moderately Decreased Stage IV GFR 15-29 Severely Decreased Stage V GFR <15 Very Little GFR Left ESRD GFR <15 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 Lab Order: CBC with Diff; SPEC'M 04/14/16 15:05 Test: WHITE BLOOD COUNT; Value: 18.1; Range: 4.0-10.0; Abnormal: Above high normal; Units: K/mm3; Status: F Test: RED BLOOD COUNT; Value: 3.07; Range: 4.00-5.40; Abnormal: Below low normal; Units: M/mm3; Status: F Test: HEMOGLOBIN; Value: 10.6; Range: 12.0-16.0; Abnormal: Below low normal; Units: g/dl; Status: F Test: HEMATOCRIT; Value: 30.1; Range: 36.0-47.0; Abnormal: Below low normal; Units: %; Status: F Test: MEAN CORPUSCULAR VOLUME; Value: 97.9; Range: 80.0-96.0; Abnormal: Above high normal; Units: fl; Status: F Test: MEAN CORPUSCULAR HEMOGLOBIN; Value: 34.5; Range: 27.0-33.0; Abnormal: Above high normal; Units: pg; Status: F Test: MEAN CORPUSCULAR HGB CONC; Value: 35.3; Range: 32.0-36.5; Units: g/dl; Status: F Test: RED CELL DISTRIBUTION WIDTH; Value: 15.8; Range: 11.5-14.5; Abnormal: Above high normal; Units: %; Status: F Test: PLATELET COUNT, AUTOMATED; Value: 118; Range: 150-450; Abnormal: Below low normal; Units: k/mm3; Status: F Test: NEUTROPHILS %; Value: 94.9; Range: 36.0-66.0; Abnormal: Above high normal; Units: %; Status: F Test: LYMPH %; Value: 2.0; Range: 24.0-44.0; Abnormal: Below low normal; Units: %; Status: F Test: MONO %; Value: 2.2; Range: 0.0-5.0; Units: %; Status: F Test: EOS %; Value: 0.3; Range: 0.0-3.0; Units: %; Status: F Test: BASO %; Value: 0.1; Range: 0.0-1.0; Units: %; Status: F Test: LARGE UNSTAINED CELL %; Value: 0.5; Range: 0.0-4.0; Units: %; Status: F Test: NEUTROPHILS #; Value: 17.2; Range: 1.8-7.7; Abnormal: Above high normal; Units: K/mm3; Status: F Test: LYMPH #; Value: 0.4; Range: 1.5-4.5; Abnormal: Below low normal; Units: K/mm3; Status: F Test: MONO #; Value: 0.4; Range: 0.0-0.8; Units: K/mm3; Status: F Test: EOS #; Value: 0.1; Range: 0.0-0.50; Units: K/mm3; Status: F Test: BASO #; Value: 0.0; Range: 0.0-0.2; Units: K/mm3; Status: F Test: LARGE UNSTAINED CELL #; Value: 0.1; Range: 0.0-0.4; Units: K/mm3; Status: F Lab Order: Lipase; SPEC' 04/14/16 15:05 Test: LIPASE; Value: 160; Range: 73-393; Units: U/L; Status: F Lab Order: Liver Profile; SPEC'M 04/14/16 15:05 Test: AST/SGOT; Value: 48; Range: 15-37; Abnormal: Above high normal; Units: U/L; Status: F Test: ALT/SGPT; Value: 67; Range: 12-78; Units: U/L; Status: F Test: ALKALINE PHOSPHATASE; Value: 170; Range: 45-117; Abnormal: Above high normal; Units: U/L; Status: F Test: BILIRUBIN,TOTAL; Value: 1.5; Range: 0.2-1.0; Abnormal: Above high normal; Units: MG/DL; Status: F Test: BILIRUBIN,DIRECT; Value: 0.3; Range: 0.0-0.2; Abnormal: Above high normal; Units: MG/DL; Status: F Test: TOTAL PROTEIN; Value: 6.7; Range: 6.4-8.2; Units: GM/DL; Status: F Test: ALBUMIN; Value: 3.6; Range: 3.2-5.2; Units: GM/DL; Status: F Test: ALBUMIN/GLOBULIN RATIO; Value: 1.16; Range: 1.00-1.93; Status: F Lab Order: Magnesium Level; SPEC'M 04/14/16 15:05 Test: MAGNESIUM LEVEL; Value: 1.2; Range: 1.8-2.4; Abnormal: Below low normal; Units: MG/DL; Status: F Radiology Order: EKG-ADULT Test: EKG-ADULT REASON FOR EXAMINATION: weakness; Stationary ECG Study; [facility] - ED; ; Test Date: 2016-04-14; Pat Name: CARLEE LOWE Department:; Room: -; Gender: F 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 sd1 18:27 No special radiology studies were completed. ja5 18:27 Discharge Assessment: Patient awake, alert and oriented x 3. No cognitive and/or ja5 functional deficits noted. Patient verbalized understanding of disposition instructions. Discharge Assessment: patient administered narcotics - no. The following High Risk Discharge criteria are identified: None. Admitted to PCU accompanied by nurse, via stretcher, on monitor. Condition: stable. Property :Personal belongings accompany Pt. 18:33 Patient left the ED. ja5 Signatures: Dispatcher [employer] EDLiliana Hare MD MD sd1 Rosa Rodgers, RN RN Brandi Dela Cruz RN RN [email or web address] Phuong Cope, RECRUITING SPECIALIST RECRUITING SPECIALIST ct3 Keaton Morales gr2 Donna Stone, Reg Reg [email or web address] Angella Wasserman,RN RN [email or web address] Angella Wasserman RN [email or web address] Corrections: (The following items were deleted from the chart) 14:04 14:01 Presenting complaint: uriel trevino MTDD
--- NOTE | 2016-04-14 18:36 | HPEPDOC ---
General Date of Admission Apr 14, 2016 at 17:33 Chief Complaint The patient is a 71-year-old female Presented to the ER with complaints of dizziness History of Present Illness Patient is a 71 year old female with a PMHx of Lung cancer (s/p chemotherapy, radiation, no surgery), Radiation pneumonitis, Crohns disease, HTN , COPD, DLP, Osteoarthritis, Hx of Pancytopenia, Hx of multiple electrolyte abnormalities (Magnesium and Potassium), Anxiety, GERD. She presented to the hospital with complaints of dizziness for 3 days duration. She notes she has been having trouble with balance, but denies any loss of consciousness or fall. She noted that she has been nauseous and vomiting 4 times (no blood, only food content). She reported that this has happened before in the past and she was found to have electrolyte abnormalities. She also notes diarrhea for the last 3 days, described as watery. She denies any blood or mucous in the stool. She notes that she can see all her supplemental pills in her stool. She notes that she experiences some epigastric abdominal pain with vomiting. She reported that these symptoms usually occur with chemotherapy and that the last time she received chemotherapy was Friday. On she was found to have a low magnesium level and was given a 2 gram infusion at the center as well as a Neulasta shot. She denies any fever or chills at home. She reports chronic SOB and cough that have not changed. Home Medications Scheduled Magnesium Oxide (Magnesium Oxide 400) 400 Mg Tab 400 MG PO BID (Reported) Multivitamins *[facility] STOCKED* (Thera M Plus *[facility] STOCKED*) 1 Tab Tab 1 TAB PO DAILY (Reported) Pantoprazole Sodium (Pantoprazole Sodium) 40 Mg Tab 40 MG PO QHS (Reported) Potassium Chloride (Klor-Con M20) 20 Meq Tabcr 20 MEQ PO QAM (Reported) Potassium Chloride (Klor-Con M10) 10 Meq Tabcr 10 MEQ PO QHS (Reported) Prednisone (Prednisone) 5 Mg Tab 7 MG PO DAILY (Reported) Salmeterol/Fluticasone (Advair Diskus 250-50 Mcg/Dose) 14 Puff/Inhaler Aerp 1 PUFF INH BID (Reported) Sertraline Hcl (Sertraline HCl) 25 Mg Tab 25 MG PO QHS (Reported) Sulfasalazine (Sulfasalazine) 500 Mg Tab 500 MG PO QHS (Reported) Scheduled PRN (Flonase Allergy Relief) 50 Mcg/Act Spr 1 SPRAY NA QHS PRN PRN ALLERGIES ( Reported) Acetaminophen (Acetaminophen Extra Stren) 500 Mg Tab 1,000 MG PO Q8H PRN PRN PAIN / FEVER (Reported) Albuterol Sulfate (Ventolin Hfa) 200 Puff/8 Gm Aers 2 PUFF INH Q4H PRN PRN SHORTNESS OF BREATH (Reported) Albuterol/Ipratropium (Ipratropium [facility]/Albut 0.5-2.5 (3) mg/3Ml) 1 Giselle Giselle 1 GISELLE INH Q4H PRN PRN SHORTNESS OF BREATH (Reported) Alprazolam (Xanax) 0.25 Mg Tab 0.25 MG PO QHS PRN PRN ANXIETY (Reported) Cyclobenzaprine HCl (Cyclobenzaprine HCl) 10 Mg Tab 10 MG PO TID PRN PRN MUSCLE SPASMS (Reported) Levalbuterol Hydrochloride (Xopenex Concentrate) 1.25 Mg/0.5 Ml Neb 1.25 MG INH QID PRN PRN SHORTNESS OF BREATH (Reported) Ondansetron HCl (Ondansetron HCl) 4 Mg Tab 4 MG PO BID PRN PRN NAUSEA OR VOMITING (Reported) Prochlorperazine Maleate (Prochlorperazine Maleate) 10 Mg Tab 10 MG PO PRN PRN PRN NAUSEA OR VOMITING (Reported) Allergies Coded Allergies: Fentanyl (Verified Adverse Reaction, Intermediate, HALLUCINATIONS/ AGITATION, 06/09/12) Hydromorphone (Verified Adverse Reaction, Intermediate, RESP ARREST/CHEST PAIN, 11/14/15) Infliximab (Verified Adverse Reaction, Intermediate, MUSCLE WEAKNESS/ SERUM SICKNESS, 11/14/15) Morphine (Verified Adverse Reaction, Intermediate, HALLUCINATIONS/ AGITATION, 06/09/12) NSAIDs (Unverified Adverse Reaction, Intermediate, crohns exacerbation, 11/14/15) Prednisone (Verified Adverse Reaction, Intermediate, HIGH DOSE STEROID INDUCED PSYCHOSIS, 11/14/15) Past Medical History Medical History Lung cancer (s/p chemotherapy, radiation, no surgery), Radiation pneumonitis, Crohns disease, HTN, COPD, DLP, Osteoarthritis, Hx of Pancytopenia, Hx of multiple electrolyte abnormalities (Magnesium and Potassium), Anxiety, GERD. 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 Review of Symptoms Other systems Constitutional: Positive weight loss, Poor change in appetite, No recent trauma Eyes: No visual changes or eye pain Ears, Nose, Throat: Denies nose bleeds, or difficulty swallowing Cardiovascular: Denies chest pain, sweating, or orthopnea Respiratory: Positive chronic cough and shortness of breath, No wheezing GI: Positive nausea, vomiting, abdominal pain, diarrhea, No constipation : Denies pain with urination or frequency Musculoskeletal: Denies joint pain or swelling Neuro / Psych: Denies muscle weakness or sensory loss Skin: No skin rashes noted All other review of systems negative; otherwise stated in history of present illness Vital Signs - Vitals: BP 122/61, HR 121, RR 18, Sat 96%RA, Temp 98.4F - General: Lying in bed, No acute distress, Speaking in full sentences, AAOx3 - HEENT: NC, AT, PERRLA, EOMI - CVS: RRR, +S1S2, - Murmurs / rubs / gallops - Lungs: Fair air entry bilaterally, Clear to auscultation, No wheezing / rales / rhonchi - Abdomen: Soft, Non-distended, Non-tender, + Bowel sounds x 4 - Extremities: + PPx4, No lower extremity edema, No calf tenderness - Neuro: No focal motor or sensory defecit - Skin: No visible rashes Laboratory Data Labs 24H Laboratory Tests 2 04/14/16 15:05: Aspartate Amino Transf (AST/SGOT) 48H, Alanine Aminotransferase (ALT/SGPT) 67, Alkaline Phosphatase 170H, Total Bilirubin 1.5H, Direct Bilirubin 0.3H, Albumin 3.6, Albumin/Globulin Ratio 1.16, Anion Gap 13, White Blood Count 18.1H, Red Blood Count 3.07L, Hemoglobin 10.6L, Hematocrit 30.1L, Mean Corpuscular Volume 97.9H, Mean Corpuscular Hemoglobin 34.5H, Mean Corpuscular Hemoglobin Concent 35.3, Red Cell Distribution Width 15.8H, Platelet Count 118L, Neutrophils (%) ( Auto) 94.9H, Lymphocytes (%) (Auto) 2.0L, Monocytes (%) (Auto) 2.2, Eosinophils (%) (Auto) 0.3, Basophils (%) (Auto) 0.1, Neutrophils # (Auto) 17.2H, Lymphocytes # (Auto) 0.4L, Monocytes # (Auto) 0.4, Eosinophils # (Auto) 0.1, Basophils # (Auto) 0.0, Calcium Level 8.5L, Glomerular Filtration Rate > 60.0, Large Unclassified Cells # 0.1, Large Unclassified Cells % 0.5, Lipase 160, Magnesium Level 1.2L, Total Protein 6.7 CBC/BMP Laboratory Tests 04/14/16 15:05 Red Blood Count 3.07 L, Mean Corpuscular Volume 97.9 H, Mean Corpuscular Hemoglobin 34.5 H, Mean Corpuscular Hemoglobin Concent 35.3, Red Cell Distribution Width 15.8 H, Neutrophils (%) (Auto) 94.9 H, Lymphocytes (%) (Auto ) 2.0 L, Monocytes (%) (Auto) 2.2, Eosinophils (%) (Auto) 0.3, Basophils (%) ( Auto) 0.1, Neutrophils # (Auto) 17.2 H, Lymphocytes # (Auto) 0.4 L, Monocytes # (Auto) 0.4, Eosinophils # (Auto) 0.1, Basophils # (Auto) 0.0 Microbiology Microbiology 04/14/16 Blood Culture, Received Pending Plan / VTE VTE Prophylaxis Ordered?: Yes Plan Plan Dizziness and imbalance likely 2/2 electrolyte abnormalities 2/2 intractable nausea, vomiting and diarrhea 2/2 chemotherapy - Presented with a 3 day history - Physical reveals some epigastric tenderness, orthostatic vital signs negative - Electrolyte abnormalities noted; K of 3.1, Mg of 1.2 - EKG without any changes compared to prior - In ER has been started on Magnesium 1 g IV and KCl 10mEq - Will keep on telemetry monitoring - Will check stool lactoferrin, calprotectin, stool osmolality and stool electrolytes - Will repeat lab work in AM - Will start Protonix IV and c/w IV fluid hydration with NS - Will give additional Magnesium 1 g IV and KCl 20mEq Tachycardia possibly 2/2 diarrhea and volume loss, possibly 2/2 PE - No reported chest pain, change in shortness of breath - Saturation is at 96% on RA - Will check CTA chest - c/w IV fluid hydration Leukocytosis - likely 2/2 Neulasta shot received on 04/11/16 - Review of systems negative for any infection - Negative fever / chills - Will check septic workup - Will hold off on antibiotics Macrocytic anemia - Hg is at baseline - Will monitor for now Thrombocytopenia - Platelet count is higher than usual - Will monitor for now Lung cancer - s/p chemotherapy, radiation, no surgery Radiation pneumonitis / COPD - c/w home inhaled therapy - c/w home prednisone dose Crohns disease - c/w sulfasalazine HTN - currently not on any medicatiosn DLP - currently not on any medications Depression / Anxiety - c/w sertraline Osteoarthritis - c/w Tylenol GERD - Will start protonix IV DVT prophylaxis - Will start Lovenox Will sign out case to PEREZ Shine MD Apr 14, 2016 18:36
[2016-04-14] MEDS ORDERED: NS 1,000 ML IV SCH (19:00)
[2016-04-14 19:09] VITALS: BP 133/61
[2016-04-14] MEDS: ONDANSETRON 4MG/2ML VIAL (J2405) IV PRN (19:10)
[2016-04-14 19:38] VITALS: BP 136/67
[2016-04-14] MEDS ORDERED: MAG SULF 1GM/100ML (MAG RUN) 1 GM in APPROPRIATE DILUENT 1 EA IV ONE (20:00)
[2016-04-14] MEDS: SERTRALINE HCL 25 MG TABLET PO SCH (20:09)
[2016-04-14] MEDS: MAGNESIUM OXIDE 400 MG TAB (MAG-OX) PO SCH (20:09)
[2016-04-14] MEDS: PANTOPRAZOLE 40MG INJ (PROTONIX) (C9113) IV SCH (20:09)
[2016-04-14] MEDS ORDERED: POTASSIUM CHLORIDE 10 MEQ SR TABLET PO SCH (21:00)
[2016-04-14] MEDS ORDERED: ISOVUE-370 76% 100ML VIAL (Q9967) As Ordered ONE (21:04)
[2016-04-14] MEDS: sulfaSALAzine 500 MG TABEC PO SCH (21:20)
--- NOTE | 2016-04-14 22:10 | REPUSA ---
CLINICAL HISTORY: Shortness of breath. TECHNIQUE: CT chest with IV contrast. COMPARISON: CT chest without contrast November 28, 2015, demonstrating post radiation consolidation/ pneumonitis and small pleural effusion. CT CHEST WITH CONTRAST: Central line: Right Port-a-cath terminates at the cavoatrial junction. Pulmonary arteries: Patent, without emboli. Lungs: Stable appearance of geographic consolidation in scarring involving the medial aspect of the r ight upper, middle and lower lobes. Although the groundglass infiltrates have resolved, the air bronc hograms consolidation in the left lower lobe is persistent. No change in the small pleural effusion. Right apical emphysematous change. No pneumothorax or focal masses. Heart: Normal size. Minimal pericardial fluid. Aorta: Normal caliber, without aneurysm or dissection. Mediastinum and vanessa: No lymphadenopathy. Bony thorax: No acute findings. Limited upper abdomen: Cholecystectomy. Splenic calcified granuloma. IMPRESSION: 1. No evidence of pulmonary embolism. 2. Stable appearance of post radiation scarring in the right lung. Persistent right lower lobe consol idation with air bronchograms and small pleural effusion.
[2016-04-14] MEDS: KCL 10MEQ IN 100ML SWI (KRUN) 10 MEQ in APPROPRIATE DILUENT 1 EA IV SCH ×4 (22:11→23:22)
[2016-04-14] MEDS: ADVAIR DISKUS 250/50 INH PWD INH SCH (22:54)
[2016-04-14 23:35] VITALS: BP 127/68
[2016-04-15] MEDS: ONDANSETRON 4MG/2ML VIAL (J2405) IV PRN ×3 (01:52→18:25)
[2016-04-15 05:21] VITALS: BP 127/54
[2016-04-15 05:45] LABS: BASO % 0.2 % (0.0-1.0); EOS % 0.7 % (0.0-3.0); LARGE UNSTAINED CELL # 0.1 K/mm3 (0.0-0.4); LARGE UNSTAINED CELL % 0.9 % (0.0-4.0); LYMPH # 0.4 K/mm3 (1.5-4.5); LYMPH % 5.3 % (24.0-44.0); MEAN CORPUSCULAR HEMOGLOBIN 33.8 pg (27.0-33.0); MEAN CORPUSCULAR HGB CONC 34.6 g/dl (32.0-36.5); MEAN CORPUSCULAR VOLUME 97.6 fl (80.0-96.0); MONO # 0.1 K/mm3 (0.0-0.8); MONO % 2.1 % (0.0-5.0); NEUTROPHILS # 5.4 K/mm3 (1.8-7.7); NEUTROPHILS % 90.8 % (36.0-66.0); RED CELL DISTRIBUTION WIDTH 15.6 % (11.5-14.5); WHITE BLOOD COUNT 5.9 K/mm3 (4.0-10.0)
[2016-04-15 05:49] LABS: PLATELET COUNT, AUTOMATED 91 k/mm3 (150-450)
[2016-04-15 06:03] LABS: ALBUMIN 3.1 GM/DL (3.2-5.2); ALBUMIN/GLOBULIN RATIO 0.94 (1.00-1.93); ALKALINE PHOSPHATASE 164 U/L (45-117); ALT/SGPT 76 U/L (12-78); ANION GAP 12 MEQ/L (8-16); AST/SGOT 55 U/L (15-37); BILIRUBIN,TOTAL 1.4 MG/DL (0.2-1.0); BLOOD UREA NITROGEN 12 MG/DL (7-18); CARBON DIOXIDE LEVEL 26 MEQ/L (21-32); CHLORIDE LEVEL 102 MEQ/L (98-107); CREATININE FOR GFR 0.81 MG/DL (0.55-1.02); GLOMERULAR FILTRATION RATE > 60.0 (>39); GLUCOSE, FASTING 101 MG/DL (83-110); MAGNESIUM LEVEL 1.5 MG/DL (1.8-2.4); POTASSIUM SERUM 2.8 MEQ/L (3.5-5.1); SODIUM LEVEL 140 MEQ/L (136-145); TOTAL PROTEIN 6.4 GM/DL (6.4-8.2)
--- NOTE | 2016-04-15 06:04 | REP ---
Sitting portable chest x-ray: Single view. History: Evaluate for infiltrate. Comparison study: March 29, 2016. Findings: There is an Yejpsc-V-Srbv catheter in place on the right. There is chronic volume loss and fibrosis in the right perihilar region with elevation of the right hemidiaphragm consistent with postradiation change and fibrosis. No new infiltrate is seen. Heart is not enlarged. Impression: Chronic changes on the right. Elevated right hemidiaphragm. No new infiltrate. Signed by Alon Cotton MD 04/15/2016 02:25 P
[2016-04-15] MEDS ORDERED: POTASSIUM CHLORIDE 10% LIQ 20 MEQ/15 ML UDC PO ONE ×2 (06:15→16:30)
[2016-04-15] MEDS: MAG SULF 1GM/100ML (MAG RUN) 1 GM in APPROPRIATE DILUENT 1 EA IV SCH ×2 (06:25→07:45)
[2016-04-15] MEDS: ADVAIR DISKUS 250/50 INH PWD INH SCH ×2 (07:59→21:10)
[2016-04-15 08:00] VITALS: BP 109/52
[2016-04-15] MEDS: KCL 10MEQ IN 100ML SWI (KRUN) 10 MEQ in APPROPRIATE DILUENT 1 EA IV SCH ×12 (08:54→21:40)
[2016-04-15] MEDS: predniSONE 5 MG TAB PO SCH (08:56)
[2016-04-15] MEDS: MULTIVITAMINS/MINERALS THERAP 1 TAB PO SCH (08:56)
[2016-04-15] MEDS: predniSONE 1 MG TAB PO SCH (08:56)
[2016-04-15] MEDS: MAGNESIUM OXIDE 400 MG TAB (MAG-OX) PO SCH ×2 (08:56→20:36)
[2016-04-15] MEDS: ENOXAPARIN 40 MG/0.4 ML SYRINGE (J1650) SC SCH (08:59)
[2016-04-15] MEDS: SODIUM CHLORIDE 0.9% INJ 10 ML SYR IV SCH (09:00)
[2016-04-15] MEDS ORDERED: SLF 3 ML SYR IV PRN (09:00)
[2016-04-15 12:00] VITALS: BP 110/56
[2016-04-15 12:29] LABS: ANION GAP 11 MEQ/L (8-16); BLOOD UREA NITROGEN 9 MG/DL (7-18); CALCIUM LEVEL 8.2 MG/DL (8.8-10.2); CARBON DIOXIDE LEVEL 26 MEQ/L (21-32); CHLORIDE LEVEL 102 MEQ/L (98-107); CREATININE FOR GFR 0.82 MG/DL (0.55-1.02); GLOMERULAR FILTRATION RATE > 60.0 (>39); GLUCOSE, FASTING 107 MG/DL (83-110); MAGNESIUM LEVEL 2.4 MG/DL (1.8-2.4); POTASSIUM SERUM 3.5 MEQ/L (3.5-5.1); SODIUM LEVEL 139 MEQ/L (136-145)
[2016-04-15] MEDS ORDERED: SLF 3 ML SYR IV SCH (14:00)
[2016-04-15 15:58] LABS: ANION GAP 7 MEQ/L (8-16); BLOOD UREA NITROGEN 10 MG/DL (7-18); CALCIUM LEVEL 7.5 MG/DL (8.8-10.2); CARBON DIOXIDE LEVEL 28 MEQ/L (21-32); CHLORIDE LEVEL 104 MEQ/L (98-107); CREATININE FOR GFR 0.76 MG/DL (0.55-1.02); GLOMERULAR FILTRATION RATE > 60.0 (>39); GLUCOSE, FASTING 114 MG/DL (83-110); MAGNESIUM LEVEL 1.9 MG/DL (1.8-2.4); POTASSIUM SERUM 2.8 MEQ/L (3.5-5.1); SODIUM LEVEL 139 MEQ/L (136-145)
[2016-04-15 16:00] VITALS: BP 110/59
[2016-04-15] MEDS: SODIUM CHLORIDE 0.9% INJ 10 ML SYR IV PRN ×3 (17:55→22:47)
[2016-04-15] MEDS ORDERED: LOPERAMIDE 2 MG CAP PO PRN (18:45)
[2016-04-15 20:00] VITALS: BP 119/67
[2016-04-15] MEDS: sulfaSALAzine 500 MG TABEC PO SCH (20:36)
[2016-04-15] MEDS: SERTRALINE HCL 25 MG TABLET PO SCH (20:36)
[2016-04-15] MEDS: PANTOPRAZOLE 40MG INJ (PROTONIX) (C9113) IV SCH (20:36)
--- NOTE | 2016-04-15 20:37 | IPN ---
DATE: 04/15/2016 SUBJECTIVE: The patient was seen and examined in the room today. The patient continues to have nausea and vomiting and diarrhea. There was a report that the patient's diarrhea was so far that the patient found undigested pill in her bowel movement. This is not a new symptom. The patient has been having gastrointestinal (GI) symptoms after chemotherapy. The patient just received her third treatment of lung cancer chemotherapy last Friday and starting on Friday, the patient had worsening nausea, vomiting and diarrhea. Due to severe GI symptoms, the patient was found to have repeated hypokalemia and hypomagnesemia. Vitals stable on cardiac telemetry. No abnormality has been detected, but the patient will continue to require telemetry due to critical low potassium level. OBJECTIVE: VITAL SIGNS: Temperature is 98.1, pulse is 110, respiratory rate 18, blood pressure 127/54, pulse oximetry is 94% in room air. GENERAL: Fatigued. No sign of acute distress. Alert and oriented times three. HEENT: Normocephalic, atraumatic. Extraocular motor grossly intact. CARDIOVASCULAR: Positive S1, S2, regular rate. LUNGS: Clear to auscultation bilaterally. No wheezes, rales, or rhonchi. ABDOMEN: Soft, nontender, nondistended. Hyperactive sounds present. EXTREMITIES: No edema, no sign of cyanosis. LABORATORY DATA: WBC is 5.9, hemoglobin 9.5, hematocrit 27.4, platelet count is 91. Sodium is 140, potassium is 2.8, chloride is 102, carbon dioxide 26, BUN 12, creatinine is 0.81, GFR greater than 60, fasting glucose 101, calcium 8, magnesium 1.5, total bilirubin is 1.4, AST 55, ALT 76, alkaline phosphatase is 164, total protein 6.4, albumin 3.1. Microbiology: Blood culture is negative after 24 hours. ASSESSMENT AND PLAN: 1. Severe hypokalemia secondary to gastrointestinal symptoms from recent chemotherapy. The patient will continue to receive IV potassium with oral potassium. The patient's electrolytes will be checked frequently. 2. Hypomagnesemia. The patient will be receiving multiple potassium (K) runs magnesium, will also monitor regularly. 3. Lung cancer. The patient just had her chemotherapy last Friday. The next scheduled chemotherapy will be in the middle of May and the patient is scheduled to have a CT scan to reevaluate the cancer. 4. History of radiation pneumonitis. The patient has no difficulty breathing in room air, does not require oxygen support. 5. History of Crohn's disease. 6. History of chronic obstructive pulmonary disease (COPD). 7. Dyslipidemia. 8. Osteoarthritis. 9. Anxiety. 10. Gastroesophageal reflux disease. 11. History of macrocytic anemia. 12. Thrombocytopenia, most likely related to chemotherapy. 13. Deep vein thrombosis (DVT), patient is on Lovenox.
[2016-04-15] MEDS ORDERED: POTASSIUM CHLORIDE 10% LIQ 20 MEQ/15 ML UDC PO SCH (21:00)
[2016-04-15 23:59] VITALS: BP 115/59
[2016-04-16 03:57] VITALS: BP 111/56
[2016-04-16] MEDS: SODIUM CHLORIDE 0.9% INJ 10 ML SYR IV PRN ×2 (05:18→23:24)
[2016-04-16 05:34] LABS: DIFF SLIDE NUMBER 47; MEAN CORPUSCULAR HEMOGLOBIN 33.3 pg (27.0-33.0); MEAN CORPUSCULAR HGB CONC 33.9 g/dl (32.0-36.5); MEAN CORPUSCULAR VOLUME 98.1 fl (80.0-96.0); RED CELL DISTRIBUTION WIDTH 15.5 % (11.5-14.5)
[2016-04-16 05:40] LABS: PLATELET COUNT, AUTOMATED 62 k/mm3 (150-450)
[2016-04-16 05:58] LABS: ALBUMIN/GLOBULIN RATIO 0.91 (1.00-1.93); ALKALINE PHOSPHATASE 143 U/L (45-117); ALT/SGPT 71 U/L (12-78); ANION GAP 9 MEQ/L (8-16); AST/SGOT 52 U/L (15-37); BLOOD UREA NITROGEN 9 MG/DL (7-18); CARBON DIOXIDE LEVEL 28 MEQ/L (21-32); CHLORIDE LEVEL 104 MEQ/L (98-107); CREATININE FOR GFR 0.72 MG/DL (0.55-1.02); GLOMERULAR FILTRATION RATE > 60.0 (>39); GLUCOSE, FASTING 92 MG/DL (83-110); MAGNESIUM LEVEL 1.4 MG/DL (1.8-2.4); POTASSIUM SERUM 2.9 MEQ/L (3.5-5.1); SODIUM LEVEL 141 MEQ/L (136-145); TOTAL PROTEIN 6.3 GM/DL (6.4-8.2)
[2016-04-16 06:30] LABS: BANDS 3 % (< 11)
[2016-04-16 06:31] LABS: DOHLE BODIES 1+; HYPERSEGMENTED POLYS 1+
[2016-04-16 06:32] LABS: ANISOCYTOSIS 1+
[2016-04-16] MEDS: ADVAIR DISKUS 250/50 INH PWD INH SCH ×2 (07:14→20:38)
[2016-04-16] MEDS: MAG SULF 1GM/100ML (MAG RUN) 1 GM in APPROPRIATE DILUENT 1 EA IV SCH ×2 (07:58→08:49)
[2016-04-16] MEDS: POTASSIUM CHLORIDE 10 MEQ SR TABLET PO SCH ×3 (07:59→10:00)
[2016-04-16 08:00] VITALS: BP 108/60
[2016-04-16] MEDS ORDERED: GASTROGRAFIN SOLUTION 30ML PO ONE (08:15)
[2016-04-16 08:38] LABS: ERYTHROCYTE SEDIMENTATION RATE 71 mm/hr (0-30)
[2016-04-16] MEDS ORDERED: GASTROGRAFIN SOLUTION 30ML (Q9963) PO ONE (08:45)
[2016-04-16] MEDS: ONDANSETRON 4MG/2ML VIAL (J2405) IV PRN ×2 (08:46→20:33)
[2016-04-16] MEDS: predniSONE 1 MG TAB PO SCH (08:49)
[2016-04-16] MEDS: predniSONE 5 MG TAB PO SCH (08:49)
[2016-04-16] MEDS: MULTIVITAMINS/MINERALS THERAP 1 TAB PO SCH (08:50)
[2016-04-16] MEDS: SODIUM CHLORIDE 0.9% INJ 10 ML SYR IV SCH (08:52)
[2016-04-16] MEDS: ENOXAPARIN 40 MG/0.4 ML SYRINGE (J1650) SC SCH (09:00)
--- NOTE | 2016-04-16 09:15 | IPN ---
DATE: 04/16/2016 The patient complained of watery bowel movements, about 3 yesterday, decreased since the patient had been placed on Imodium. Denies any headaches, changes in vision, cough, shortness of breath. Achy crampy abdominal pain when she has a bowel movement. Patient complains of generalized weakness. No nausea or vomiting. Telemetry is unremarkable. Temperature 98.1, pulse 101, respiratory rate 18, blood pressure 111/56, 93% on room air. Generally, awake, alert, oriented times three, answering questions appropriately. Lungs are clear to auscultation. No wheezing, rales or rhonchi. Heart: S1, S2, sinus rhythm. Abdomen is soft, nontender, nondistended. Positive bowel sounds. Extremities: No pitting edema. Patient has a port wine anterior chest. Lab data notable for pancytopenia. CBC, metabolic panel, liver function tests, magnesium have been reviewed. Urine culture is pending. Blood culture negative. CT of the chest with no PE, persistent right lower lobe consolidation ASSESSMENT AND PLAN: This is a 71-year-old female with history of lung cancer status post chemoradiation, no surgery, radiation pneumonitis, , hypertension,dyslipidemia, osteoarthritis, pancytopenia, multiple electrolyte abnormalities, anxiety and reflux who presented to the hospital on 04/14/2016 with three day complaint of dizziness, nausea, vomiting and diarrhea, profuse watery in nature without blood or mucus. The patient had last chemotherapy on Friday. On , had low magnesium and received 2 grams infusion at the cancer center, a Neulasta shot. CURRENT ISSUES: 1. Chemotherapy induced diarrhea. The patient is currently with severe electrolyte abnormalities with low potassium and magnesium which have been supplemented intravenously and orally. Will recheck magnesium and potassium every 6 hours and replenish as needed. Stool culture will be obtained. Loperamide resumed once stool cultures are negative. Patient denies any bloody diarrhea with prior history of ulcerative colitis, most likely not an exacerbation. 2. Dizziness and imbalance secondary to nausea, vomiting and diarrhea. Orthostatics were negative. Continue with IV fluid hydration and electrolyte replacement. 3. Tachycardia secondary to diarrhea. CT of chest was negative. 4. History of lung cancer status post chemoradiation, no surgery. CT of chest shows questionable left lower lobe consolidation with impression showing right lower lobe consolidation. No fever or chills. No cough at this time. Will continue to monitor and start an antibiotic if suspicious for pneumonia. 5. Macrocytic anemia. Hemoglobin is at baseline. Will check iron studies and Hemoccult stools. 6. Thrombocytopenia. No active signs of bleeding. 7. Chemotherapy induced pancytopenia, chronic. 8. Lung cancer, undergoing chemotherapy, status post radiation, no surgery. 9. Radiation pneumonitis and chronic obstructive pulmonary disease. Continue with home inhaled and home steroid dose. 10. History of inflammatory bowel disease with Crohn's disease. Continue with sulfasalazine. No bloody diarrhea. 11. History of partial colectomy. 12. Hypertension, not on medications. 13. Dyslipidemia, not on any medication. 14. Depression and anxiety, on Sertraline. 15. Osteoarthritis, on Tylenol. 16. Reflux, on Protonix. 17. Deep vein thrombosis prophylaxis, on Lovenox. MTDD
[2016-04-16 10:30] VITALS: BP 132/68
[2016-04-16] MEDS: ACETAMINOPHEN TAB 650MG DOSE (2X325MG) PO PRN ×2 (12:15→20:33)
[2016-04-16 12:47] LABS: MAGNESIUM LEVEL 2.2 MG/DL (1.8-2.4); POTASSIUM SERUM 3.5 MEQ/L (3.5-5.1)
[2016-04-16] MEDS ORDERED: LOPERAMIDE 2 MG CAP PO PRN (13:45)
[2016-04-16 14:00] VITALS: BP 120/74
[2016-04-16 19:14] LABS: MAGNESIUM LEVEL 1.6 MG/DL (1.8-2.4); POTASSIUM SERUM 3.4 MEQ/L (3.5-5.1)
--- NOTE | 2016-04-16 19:34 | EDDOCDS ---
Physician Documentation [facility] Name: Carlee Lowe Age: 71 yrs Sex: Female : 1945 Arrival Date: 04/14/2016 Time: 13:57 Bed 7 Private MD: Elizabeth Lobo Disposition: 04/14/16 17:13 Hospitalization ordered by Gurjit Allan for Inpatient Admission. Preliminary diagnosis are Hypokalemia, Hypomagnesemia, Dehydration. - [facility] - Status is Inpatient Admission. ja5 - Condition is Stable. - Problem is an acute exacerbation. - Symptoms are unchanged. Historical: - Allergies: NSAIDS (chron's exacerbation); OPIOID ANALGESICS (respiratory arrest); Remicade (serum sickness); sensitive to steroidspt on steroids now ---takes low dose; - Home Meds: 1. acetaminophen 325 mg Oral tab 2 tabs every 6 hours prn (Last dose: 04/14/2016 08:00) 2. Advair Diskus 250-50 mcg/dose Inhl dsdv 1 puff 2 times per day new med, has not started (Last dose: Unknown) 3. albuterol sulfate 90 mcg/actuation Inhl HFAA 2 puffs every 4-6 hours 4. cyclobenzaprine 10 mg Oral tab 1 tab as needed 5. fluticasone 50 mcg/actuation nasal spsn 2 sprays once daily (Last dose: 04/13/2016) 6. Xopenex 1.25 mg/3 mL Inhl nebu 3 mL as needed (Last dose: 04/13/2016) 7. multivitamin Oral cap 1 tab daily (Last dose: 04/13/2016) 8. Zofran (as hydrochloride) 4 mg Oral tab 2 times per day (Last dose: 04/14/2016 10:00) 9. pantoprazole 40 mg oral TbEC 1 tab once daily (Last dose: 04/13/2016) 10. Prednisone 7mg Oral once daily (Last dose: 04/14/2016 08:00) 11. prochlorperazine maleate 10 mg Oral tab (Last dose: 04/14/2016 06:00) 12. Zoloft 25 mg Oral tab 1 tab once daily (Last dose: 04/13/2016) 13. sulfasalazine 500 mg Oral tab 1 tab nightly (Last dose: 04/13/2016) 14. magnesium oxide 500 mg oral cap twice a day (Last dose: 04/14/2016 09:00) 15. potassium chloride 20 mEq Oral TbER 2 times per day (Last dose: 04/14/2016 09:00) 16. Xanax 0.25 mg Oral tab nightly (Last dose: Unknown) - PMHx: Hypertension; Chron's Disease; Actinic Keratosis; Anemia; Anxiety; GERD; dysplastic nevus; hyperglyceridemia; hyperlipidemia; hypokalemia; hypomagnesiemia; leukopenia; Lumbago; lung cancer; Osteoarthritis; pancytopenia; tachycardia; Vitamin B, D deficiency; - PSHx: abdominal; Hysterectomy; bowel resections; Cholecystectomy; Tonsillectomy; infusaport placement; - Social history: Smoking status: Patient states former smoker of tobacco. No barriers to communication noted, The patient speaks fluent Cambodian, Speaks appropriately for age. - Family history: Not pertinent. - : The pt / caregiver states he / she is not on anticoagulants. Home medication list is obtained from the patient. - Exposure Risk Screening:: None identified. Vital Signs: 04/14 13:58 BP 121 / 65; Pulse 113; Resp 18 S; Temp 98.4(O); Pulse Ox 96% on R/A; Weight 67.59 kg / gr2 149.01 lbs (R); Height 5 ft. 7 in. (170.18 cm) (R); Pain 4/10; 15:09 BP 131 / 80 Supine; Pulse 115; jc4 15:09 BP 117 / 64 Sitting; Pulse 117; jc4 15:09 BP 122 / 61 Standing; Pulse 121; jc4 17:53 BP 127 / 56; Pulse 115; Resp 16; Temp 100.0(TE); Pulse Ox 91% on R/A; Pain 5/10; ja5 18:25 BP 118 / 57; Pulse 95; Resp 20; Temp 99.9; Pulse Ox 92% on R/A; Pain 4/10; ja5 13:58 Body Mass Index 23.34 (67.59 kg, 170.18 cm) gr2 MDM: 14:39 Misc. Nursing Order ordered. sd1 14:39 NS 0.9% 1000 ml IV at bolus once ordered. sd1 14:39 Orthostatic VS ordered. sd1 14:39 ECG WITH READING ER PHYS+CARDIAG ordered. EDMS 14:40 Basic Metabolic Profile Ordered. EDMS 14:40 CBC with Diff Ordered. EDMS 14:40 Lipase Ordered. EDMS 14:40 Liver Profile Ordered. EDMS 14:40 Magnesium Level Ordered. EDMS 15:50 CBC with Diff Reviewed. sd1 15:53 GASTROINTESTINAL (GI) PANEL Ordered. EDMS 16:00 Financial registration complete. [email or web address] 16:00 [facility] Payment Agreement was scanned into [employer] and attached to record. [email or web address] 17:04 Basic Metabolic Profile Reviewed. sd1 17:04 Liver Profile Reviewed. sd1 17:04 Magnesium Level Reviewed. sd1 17:04 Lipase Reviewed. sd1 17:05 Magnesium Sulfate 1 grams IVPB once over 1 hrs; administer over at least 1 hour ordered.sd1 17:05 Potassium Chloride in 100cc sterile water 10 mEq IV at 100 mL/hr once over 1 hrs sd1 ordered. 17:06 BED REQUEST+ADM ordered. EDMS 17:38 PORTABLE CHEST X-RAY Ordered. EDMS 17:38 Admission / Observation Status ordered. EDMS 17:39 URINALYSIS Ordered. EDMS 17:39 OSMOLARITY STOOL Ordered. EDMS 17:39 STOOL POTASSIUM Ordered. EDMS 17:39 STOOL SODIUM Ordered. EDMS 17:39 STOOL CHLORIDE Ordered. EDMS 17:39 CALPROTECTIN STOOL Ordered. EDMS 17:39 URINE CULTURE Ordered. EDMS 17:39 BLOOD CULTURES Ordered. EDMS 17:40 STOOL POLYS Ordered. EDMS 18:10 CLEAR LIQUIDS DIET ordered. EDMS 18:35 CT ANGIO CHEST Ordered. EDMS 02/ 12:17 T-Sheet-- Draft Copy was scanned into [employer] and attached to record. gb 12:17 ECG/EKG was scanned into [employer] and attached to record. gb 12:18 Trend VS was scanned into [employer] and attached to record. gb Administered Medications: 04/14 15:12 Drug: NS 0.9% 1000 ml [sodium chloride 0.9 % intravenous solution] Route: IV; Rate: ja5 bolus; Site: Implantable Access Device; 16:12 Follow up: IV Status: Completed infusion; IV Intake: 1000ml jc4 17:27 Drug: Magnesium Sulfate 1 grams [magnesium sulfate 1 gram/100 mL in dextrose 5 % jc4 intravenous piggyback] {Co-Signature: [email or web address] (Angella Wasserman RN).} Route: IVPB; Infused Over: 1 hrs; Site: Implantable Access Device; 18:29 Drug: Potassium Chloride in 100cc sterile water 10 mEq [potassium chloride 10 mEq/100 jc4 mL intravenous piggyback] {Co-Signature: radha (Angella Wasserman RN).} Route: IV; Rate: 100 mL/hr; Infused Over: 1 hrs; Site: Implantable Access Device; Signatures: Dispatcher [employer] EDMS Liliana Reilly MD MD sd1 Rosa Rodgers, RN RN [facility] Dee Arce, Reg Reg gb SourMadeline piña RN RN sls2 Donna Stone, Reg Reg ks16 Angella Wasserman RN RN ja5 Brandi Mc RN4 Angella chester5 The chart was reviewed and I authenticate all verbal orders and agree with the evaluation and treatment provided.Corrections: (The following items were deleted from the chart) 15:52 15:51 GASTROINTESTINAL (GI) PANEL+ADA ordered. EDWV EDMS Attachments: 16:00 [facility] Payment Agreement [email or web address] 04/15 12:17 T-Sheet-- Draft Copy gb 12:17 ECG/EKG gb Chart Complete MTDD
--- NOTE | 2016-04-16 19:34 | EDDOCDS ---
Physician Documentation [facility] Name: Carlee Lowe Age: 71 yrs Sex: Female : 1945 Arrival Date: 04/14/2016 Time: 13:57 Bed 7 Private MD: Elizabeth Lobo Disposition: 04/14/16 17:13 Hospitalization ordered by Gurjit Allan for Inpatient Admission. Preliminary diagnosis are Hypokalemia, Hypomagnesemia, Dehydration. - [facility] - Status is Inpatient Admission. ja5 - Condition is Stable. - Problem is an acute exacerbation. - Symptoms are unchanged. Historical: - Allergies: NSAIDS (chron's exacerbation); OPIOID ANALGESICS (respiratory arrest); Remicade (serum sickness); sensitive to steroidspt on steroids now ---takes low dose; - Home Meds: 1. acetaminophen 325 mg Oral tab 2 tabs every 6 hours prn (Last dose: 04/14/2016 08:00) 2. Advair Diskus 250-50 mcg/dose Inhl dsdv 1 puff 2 times per day new med, has not started (Last dose: Unknown) 3. albuterol sulfate 90 mcg/actuation Inhl HFAA 2 puffs every 4-6 hours 4. cyclobenzaprine 10 mg Oral tab 1 tab as needed 5. fluticasone 50 mcg/actuation nasal spsn 2 sprays once daily (Last dose: 04/13/2016) 6. Xopenex 1.25 mg/3 mL Inhl nebu 3 mL as needed (Last dose: 04/13/2016) 7. multivitamin Oral cap 1 tab daily (Last dose: 04/13/2016) 8. Zofran (as hydrochloride) 4 mg Oral tab 2 times per day (Last dose: 04/14/2016 10:00) 9. pantoprazole 40 mg oral TbEC 1 tab once daily (Last dose: 04/13/2016) 10. Prednisone 7mg Oral once daily (Last dose: 04/14/2016 08:00) 11. prochlorperazine maleate 10 mg Oral tab (Last dose: 04/14/2016 06:00) 12. Zoloft 25 mg Oral tab 1 tab once daily (Last dose: 04/13/2016) 13. sulfasalazine 500 mg Oral tab 1 tab nightly (Last dose: 04/13/2016) 14. magnesium oxide 500 mg oral cap twice a day (Last dose: 04/14/2016 09:00) 15. potassium chloride 20 mEq Oral TbER 2 times per day (Last dose: 04/14/2016 09:00) 16. Xanax 0.25 mg Oral tab nightly (Last dose: Unknown) - PMHx: Hypertension; Chron's Disease; Actinic Keratosis; Anemia; Anxiety; GERD; dysplastic nevus; hyperglyceridemia; hyperlipidemia; hypokalemia; hypomagnesiemia; leukopenia; Lumbago; lung cancer; Osteoarthritis; pancytopenia; tachycardia; Vitamin B, D deficiency; - PSHx: abdominal; Hysterectomy; bowel resections; Cholecystectomy; Tonsillectomy; infusaport placement; - Social history: Smoking status: Patient states former smoker of tobacco. No barriers to communication noted, The patient speaks fluent [place] Irish, Speaks appropriately for age. - Family history: Not pertinent. - : The pt / caregiver states he / she is not on anticoagulants. Home medication list is obtained from the patient. - Exposure Risk Screening:: None identified. Vital Signs: 04/14 13:58 BP 121 / 65; Pulse 113; Resp 18 S; Temp 98.4(O); Pulse Ox 96% on R/A; Weight 67.59 kg / gr2 149.01 lbs (R); Height 5 ft. 7 in. (170.18 cm) (R); Pain 4/10; 15:09 BP 131 / 80 Supine; Pulse 115; jc4 15:09 BP 117 / 64 Sitting; Pulse 117; jc4 15:09 BP 122 / 61 Standing; Pulse 121; jc4 17:53 BP 127 / 56; Pulse 115; Resp 16; Temp 100.0(TE); Pulse Ox 91% on R/A; Pain 5/10; ja5 18:25 BP 118 / 57; Pulse 95; Resp 20; Temp 99.9; Pulse Ox 92% on R/A; Pain 4/10; ja5 13:58 Body Mass Index 23.34 (67.59 kg, 170.18 cm) gr2 MDM: 14:39 Misc. Nursing Order ordered. sd1 14:39 NS 0.9% 1000 ml IV at bolus once ordered. sd1 14:39 Orthostatic VS ordered. sd1 14:39 ECG WITH READING ER PHYS+CARDIAG ordered. EDMS 14:40 Basic Metabolic Profile Ordered. EDMS 14:40 CBC with Diff Ordered. EDMS 14:40 Lipase Ordered. EDMS 14:40 Liver Profile Ordered. EDMS 14:40 Magnesium Level Ordered. EDMS 15:50 CBC with Diff Reviewed. sd1 15:53 GASTROINTESTINAL (GI) PANEL Ordered. EDMS 16:00 Financial registration complete. [email or web address] 16:00 [facility] Payment Agreement was scanned into [employer] and attached to record. [email or web address] 17:04 Basic Metabolic Profile Reviewed. sd1 17:04 Liver Profile Reviewed. sd1 17:04 Magnesium Level Reviewed. sd1 17:04 Lipase Reviewed. sd1 17:05 Magnesium Sulfate 1 grams IVPB once over 1 hrs; administer over at least 1 hour ordered.sd1 17:05 Potassium Chloride in 100cc sterile water 10 mEq IV at 100 mL/hr once over 1 hrs sd1 ordered. 17:06 BED REQUEST+ADM ordered. EDMS 17:38 PORTABLE CHEST X-RAY Ordered. EDMS 17:38 Admission / Observation Status ordered. EDMS 17:39 URINALYSIS Ordered. EDMS 17:39 OSMOLARITY STOOL Ordered. EDMS 17:39 STOOL POTASSIUM Ordered. EDMS 17:39 STOOL SODIUM Ordered. EDMS 17:39 STOOL CHLORIDE Ordered. EDMS 17:39 CALPROTECTIN STOOL Ordered. EDMS 17:39 URINE CULTURE Ordered. EDMS 17:39 BLOOD CULTURES Ordered. EDMS 17:40 STOOL POLYS Ordered. EDMS 18:10 CLEAR LIQUIDS DIET ordered. EDMS 18:35 CT ANGIO CHEST Ordered. EDMS 02/ 12:17 T-Sheet-- Draft Copy was scanned into [employer] and attached to record. gb 12:17 ECG/EKG was scanned into [employer] and attached to record. gb 12:18 Trend VS was scanned into [employer] and attached to record. gb Administered Medications: 04/14 15:12 Drug: NS 0.9% 1000 ml [sodium chloride 0.9 % intravenous solution] Route: IV; Rate: ja5 bolus; Site: Implantable Access Device; 16:12 Follow up: IV Status: Completed infusion; IV Intake: 1000ml jc4 17:27 Drug: Magnesium Sulfate 1 grams [magnesium sulfate 1 gram/100 mL in dextrose 5 % jc4 intravenous piggyback] {Co-Signature: [email or web address] (Angella Wasserman RN).} Route: IVPB; Infused Over: 1 hrs; Site: Implantable Access Device; 18:29 Drug: Potassium Chloride in 100cc sterile water 10 mEq [potassium chloride 10 mEq/100 jc4 mL intravenous piggyback] {Co-Signature: radha (Angella Wasserman RN).} Route: IV; Rate: 100 mL/hr; Infused Over: 1 hrs; Site: Implantable Access Device; Signatures: Dispatcher [employer] EDMS Liliana Reilly MD MD sd1 Rosa Rodgers, RN RN [facility] Dee Arce, Reg Reg gb SourMadeline piña RN RN sls2 Donna Stone, Reg Reg ks16 Angella Wasserman RN RN ja5 Brandi Mc RN4 Angella chester5 The chart was reviewed and I authenticate all verbal orders and agree with the evaluation and treatment provided.Corrections: (The following items were deleted from the chart) 15:52 15:51 GASTROINTESTINAL (GI) PANEL+ADA ordered. EDUT EDMS Attachments: 16:00 [facility] Payment Agreement [email or web address] 04/15 12:17 T-Sheet-- Draft Copy gb 12:17 ECG/EKG gb Chart Complete MTDD
--- NOTE | 2016-04-16 19:35 | EDDOCDS ---
Nurse's Notes [facility] Name: Carlee Lowe Age: 71 yrs Sex: Female : 1945 Arrival Date: 04/14/2016 Time: 13:57 Bed 7 Private MD: Elizabeth Lobo Diagnosis: Hypokalemia;Hypomagnesemia;Dehydration Presentation: 04/14 14:01 Presenting complaint: Presenting complaint: Patient states: was admitted mar 29 for srm anemia, hypokalemia and hypo magnesium. weak, cant stand im quite sure i have low potassium and magnesium. my mouth is dry. pain in right upper lung. 14:01 Adult Sepsis Screening: The patient does not have new or worsening altered mentation. srm Patient's respiratory rate is less than 22. Systolic blood pressure is greater than 100. Patient has a qSOFA score of 0- Negative Sepsis Screen. Suicide/Homicide risk assessment- the patient denies having any suicidal and/or homicidal ideations and does not present with any other emotional, behavioral or mental health complaints. Status: Patient is not a director of career services or dependent. Transition of care: patient was not received from another setting of care. 14:01 Acuity: TOMMIE Level [address] [facility] 14:01 Method Of Arrival: Wheelchair [facility] Triage Assessment: 14:10 General: Appears in no apparent distress, Behavior is appropriate for age, cooperative. srm Pain: Pain currently is 5 out of 10 on a pain scale. GI: Reports nausea, vomiting. Historical: - Allergies: NSAIDS (chron's exacerbation); OPIOID ANALGESICS (respiratory arrest); Remicade (serum sickness); sensitive to steroidspt on steroids now ---takes low dose; - Home Meds: 1. acetaminophen 325 mg Oral tab 2 tabs every 6 hours prn (Last dose: 04/14/2016 08:00) 2. Advair Diskus 250-50 mcg/dose Inhl dsdv 1 puff 2 times per day new med, has not started (Last dose: Unknown) 3. albuterol sulfate 90 mcg/actuation Inhl HFAA 2 puffs every 4-6 hours 4. cyclobenzaprine 10 mg Oral tab 1 tab as needed 5. fluticasone 50 mcg/actuation nasal spsn 2 sprays once daily (Last dose: 04/13/2016) 6. Xopenex 1.25 mg/3 mL Inhl nebu 3 mL as needed (Last dose: 04/13/2016) 7. multivitamin Oral cap 1 tab daily (Last dose: 04/13/2016) 8. Zofran (as hydrochloride) 4 mg Oral tab 2 times per day (Last dose: 04/14/2016 10:00) 9. pantoprazole 40 mg oral TbEC 1 tab once daily (Last dose: 04/13/2016) 10. Prednisone 7mg Oral once daily (Last dose: 04/14/2016 08:00) 11. prochlorperazine maleate 10 mg Oral tab (Last dose: 04/14/2016 06:00) 12. Zoloft 25 mg Oral tab 1 tab once daily (Last dose: 04/13/2016) 13. sulfasalazine 500 mg Oral tab 1 tab nightly (Last dose: 04/13/2016) 14. magnesium oxide 500 mg oral cap twice a day (Last dose: 04/14/2016 09:00) 15. potassium chloride 20 mEq Oral TbER 2 times per day (Last dose: 04/14/2016 09:00) 16. Xanax 0.25 mg Oral tab nightly (Last dose: Unknown) - PMHx: Hypertension; Chron's Disease; Actinic Keratosis; Anemia; Anxiety; GERD; dysplastic nevus; hyperglyceridemia; hyperlipidemia; hypokalemia; hypomagnesiemia; leukopenia; Lumbago; lung cancer; Osteoarthritis; pancytopenia; tachycardia; Vitamin B, D deficiency; - PSHx: abdominal; Hysterectomy; bowel resections; Cholecystectomy; Tonsillectomy; infusaport placement; - Social history: Smoking status: Patient states former smoker of tobacco. No barriers to communication noted, The patient speaks fluent Kiswahili, Speaks appropriately for age. - Family history: Not pertinent. - : The pt / caregiver states he / she is not on anticoagulants. Home medication list is obtained from the patient. - Exposure Risk Screening:: None identified. Screenin:16 Screening information is obtained from the patient. Fall risk: At risk due to prior ja5 history of falls. Assistance ADL's: requires no assistance with activities of daily living. Abuse/DV Screen: The patient / caregiver reports he/she is: not in a situation that causes fear, pain or injury. Nutritional screening: On no prescribed diet. Advance Directives: Currently, there is no health care proxy. There is no active DNR order. There is no living will. There is no Power of Steel Roller. home support is adequate. Assessment: 14:18 General: Appears in no apparent distress, Behavior is appropriate for age, cooperative. ja5 Pain: Location: right posterior lower chest wall and all joints Pain currently is 6 out of 10 on a pain scale. Neurological: Level of Consciousness is awake, alert, Oriented to person, place, time. Cardiovascular: Capillary refill < 3 seconds Heart tones S1 S2 present. Respiratory: Airway is patent Respiratory effort is even, unlabored. GI: Abdomen is non- distended Bowel sounds present X 4 quads. Abd is soft X 4 quads Abd is tender to palpation X 4 quads. Reports nausea. Derm: Skin is intact, Skin is pink, warm & dry. 15:22 General: Dr. Quiroga notified of orthostatic BP results. Patient stated they were dizzy ja5 upon standing, provider aware.. 18:23 General: Appears in no apparent distress, Behavior is appropriate for age, cooperative. ja5 Neurological: Level of Consciousness is awake, alert, Oriented to person, place, time. Cardiovascular: Capillary refill < 3 seconds. Respiratory: Airway is patent Respiratory effort is even, unlabored. Derm: Skin is intact, Skin is pink, warm & dry. 18:24 General: Report received in PCU, patient will be transferred via stretcher on cardiac ja5 monitor. . Vital Signs: 13:58 BP 121 / 65; Pulse 113; Resp 18 S; Temp 98.4(O); Pulse Ox 96% on R/A; Weight 67.59 kg gr2 (R); Height 5 ft. 7 in. (170.18 cm) (R); Pain 4/10; 15:09 BP 131 / 80 Supine; Pulse 115; jc4 15:09 BP 117 / 64 Sitting; Pulse 117; jc4 15:09 BP 122 / 61 Standing; Pulse 121; jc4 17:53 BP 127 / 56; Pulse 115; Resp 16; Temp 100.0(TE); Pulse Ox 91% on R/A; Pain 5/10; ja5 18:25 BP 118 / 57; Pulse 95; Resp 20; Temp 99.9; Pulse Ox 92% on R/A; Pain 4/10; ja5 13:58 Body Mass Index 23.34 (67.59 kg, 170.18 cm) gr2 Vitals: 13:58 Log In Time: April 14, 2016 at 13:58. gr2 ED Course: 13:58 Patient visited by Keaton Morales. gr2 13:58 Elizabeth Lobo is Private Physician. gr2 13:58 Patient moved to Waiting gr2 14:01 Patient visited by Keaton Morales. gr2 14:01 Patient moved to Pre RCE gr2 14:04 Triage Initiated srm 14:11 Angella Wasserman,RN is Primary Nurse. srm 14:11 Brandi Mc, RN is Primary Nurse. srm 14:11 Patient moved to 7 srm 14:19 Liliana Reilly MD is Attending Physician. sd1 14:25 The patient / caregiver is instructed regarding the plan of care and ED course. ja5 14:29 Patient visited by Liliana Reilly MD. sd1 14:47 Patient visited by Phuong Cope PCA. ct3 14:47 EKG done. (by ED staff). Reviewed by Liliana Reilly MD. ct3 15:12 Patient visited by Angella Wasserman RN. ja5 15:13 Accessed using accessed w/ # 20 [place] needle, sterile technique, per hospital protocol. ja5 InfusaPort in patient's anterior aspect of right upper chest. Clean & dry. Dressing intact. Good blood return. Flushes easily. 16:00 [facility] Payment Agreement was scanned into [employer] and attached to record. ks16 16:12 Patient visited by Brandi Mc RN. jc4 17:13 Gurjit Allan is Hospitalizing Provider. sd1 17:19 EKG-ADULT Returned. EDMS 18:27 No procedures done that require assistance. ja5 04/15 12:17 T-Sheet-- Draft Copy was scanned into [employer] and attached to record. gb 12:17 ECG/EKG was scanned into [employer] and attached to record. gb 12:18 Trend VS was scanned into [employer] and attached to record. gb Administered Medications: 04/14 15:12 Drug: NS 0.9% 1000 ml [sodium chloride 0.9 % intravenous solution] Route: IV; Rate: ja5 bolus; Site: Implantable Access Device; 16:12 Follow up: IV Status: Completed infusion; IV Intake: 1000ml jc4 17:27 Drug: Magnesium Sulfate 1 grams [magnesium sulfate 1 gram/100 mL in dextrose 5 % jc4 intravenous piggyback] {Co-Signature: radha (Angella Wasserman RN).} Route: IVPB; Infused Over: 1 hrs; Site: Implantable Access Device; 18:29 Drug: Potassium Chloride in 100cc sterile water 10 mEq [potassium chloride 10 mEq/100 jc4 mL intravenous piggyback] {Co-Signature: radha (Angella Wasserman RN).} Route: IV; Rate: 100 mL/hr; Infused Over: 1 hrs; Site: Implantable Access Device; Attachments: 12:18 Trend VS gb Intake: 04/14 16:12 IV: 1000.00ml; Total: 1000.00ml. jc4 Order Results: Lab Order: Basic Metabolic Profile; SPEC'M 04/14/16 15:05 Test: GLUCOSE, FASTING; Value: 104; Range: 83-110; Units: MG/DL; Status: F Test: BLOOD UREA NITROGEN; Value: 17; Range: 7-18; Units: MG/DL; Status: F Test: CREATININE FOR GFR; Value: 0.94; Range: 0.55-1.02; Units: MG/DL; Status: F Test: GLOMERULAR FILTRATION RATE; Value: > 60.0; Range: >39; Status: F Test: SODIUM LEVEL; Value: 140; Range: 136-145; Units: MEQ/L; Status: F Test: POTASSIUM SERUM; Value: 3.1; Range: 3.5-5.1; Abnormal: Below low normal; Units: MEQ/L; Status: F Test: CHLORIDE LEVEL; Value: 101; Range: 98-107; Units: MEQ/L; Status: F Test: CARBON DIOXIDE LEVEL; Value: 26; Range: 21-32; Units: MEQ/L; Status: F Test: ANION GAP; Value: 13; Range: 8-16; Units: MEQ/L; Status: F Test: CALCIUM LEVEL; Value: 8.5; Range: 8.8-10.2; Abnormal: Below low normal; Units: MG/DL; Status: F Test Note: ; Units are mL/min/1.73 m2 Chronic Kidney Disease Staging per NKF: Stage I & II GFR >=60 Normal to Mildly Decreased Stage III GFR 30-59 Moderately Decreased Stage IV GFR 15-29 Severely Decreased Stage V GFR <15 Very Little GFR Left ESRD GFR <15 on 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 Lab Order: CBC with Diff; SPEC'M 04/14/16 15:05 Test: WHITE BLOOD COUNT; Value: 18.1; Range: 4.0-10.0; Abnormal: Above high normal; Units: K/mm3; Status: F Test: RED BLOOD COUNT; Value: 3.07; Range: 4.00-5.40; Abnormal: Below low normal; Units: M/mm3; Status: F Test: HEMOGLOBIN; Value: 10.6; Range: 12.0-16.0; Abnormal: Below low normal; Units: g/dl; Status: F Test: HEMATOCRIT; Value: 30.1; Range: 36.0-47.0; Abnormal: Below low normal; Units: %; Status: F Test: MEAN CORPUSCULAR VOLUME; Value: 97.9; Range: 80.0-96.0; Abnormal: Above high normal; Units: fl; Status: F Test: MEAN CORPUSCULAR HEMOGLOBIN; Value: 34.5; Range: 27.0-33.0; Abnormal: Above high normal; Units: pg; Status: F Test: MEAN CORPUSCULAR HGB CONC; Value: 35.3; Range: 32.0-36.5; Units: g/dl; Status: F Test: RED CELL DISTRIBUTION WIDTH; Value: 15.8; Range: 11.5-14.5; Abnormal: Above high normal; Units: %; Status: F Test: PLATELET COUNT, AUTOMATED; Value: 118; Range: 150-450; Abnormal: Below low normal; Units: k/mm3; Status: F Test: NEUTROPHILS %; Value: 94.9; Range: 36.0-66.0; Abnormal: Above high normal; Units: %; Status: F Test: LYMPH %; Value: 2.0; Range: 24.0-44.0; Abnormal: Below low normal; Units: %; Status: F Test: MONO %; Value: 2.2; Range: 0.0-5.0; Units: %; Status: F Test: EOS %; Value: 0.3; Range: 0.0-3.0; Units: %; Status: F Test: BASO %; Value: 0.1; Range: 0.0-1.0; Units: %; Status: F Test: LARGE UNSTAINED CELL %; Value: 0.5; Range: 0.0-4.0; Units: %; Status: F Test: NEUTROPHILS #; Value: 17.2; Range: 1.8-7.7; Abnormal: Above high normal; Units: K/mm3; Status: F Test: LYMPH #; Value: 0.4; Range: 1.5-4.5; Abnormal: Below low normal; Units: K/mm3; Status: F Test: MONO #; Value: 0.4; Range: 0.0-0.8; Units: K/mm3; Status: F Test: EOS #; Value: 0.1; Range: 0.0-0.50; Units: K/mm3; Status: F Test: BASO #; Value: 0.0; Range: 0.0-0.2; Units: K/mm3; Status: F Test: LARGE UNSTAINED CELL #; Value: 0.1; Range: 0.0-0.4; Units: K/mm3; Status: F Lab Order: Lipase; SPEC' 04/14/16 15:05 Test: LIPASE; Value: 160; Range: 73-393; Units: U/L; Status: F Lab Order: Liver Profile; SPEC' 04/14/16 15:05 Test: AST/SGOT; Value: 48; Range: 15-37; Abnormal: Above high normal; Units: U/L; Status: F Test: ALT/SGPT; Value: 67; Range: 12-78; Units: U/L; Status: F Test: ALKALINE PHOSPHATASE; Value: 170; Range: 45-117; Abnormal: Above high normal; Units: U/L; Status: F Test: BILIRUBIN,TOTAL; Value: 1.5; Range: 0.2-1.0; Abnormal: Above high normal; Units: MG/DL; Status: F Test: BILIRUBIN,DIRECT; Value: 0.3; Range: 0.0-0.2; Abnormal: Above high normal; Units: MG/DL; Status: F Test: TOTAL PROTEIN; Value: 6.7; Range: 6.4-8.2; Units: GM/DL; Status: F Test: ALBUMIN; Value: 3.6; Range: 3.2-5.2; Units: GM/DL; Status: F Test: ALBUMIN/GLOBULIN RATIO; Value: 1.16; Range: 1.00-1.93; Status: F Lab Order: Magnesium Level; SPEC'M 04/14/16 15:05 Test: MAGNESIUM LEVEL; Value: 1.2; Range: 1.8-2.4; Abnormal: Below low normal; Units: MG/DL; Status: F Radiology Order: EKG-ADULT Test: EKG-ADULT REASON FOR EXAMINATION: weakness; Stationary ECG Study; [facility] - ED; ; Test Date: 2016-04-14; Pat Name: CARLEE LOWE Department:; Room: -; 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 sd1 18:27 No special radiology studies were completed. ja5 18:27 Discharge Assessment: Patient awake, alert and oriented x 3. No cognitive and/or ja5 functional deficits noted. Patient verbalized understanding of disposition instructions. Discharge Assessment: patient administered narcotics - no. The following High Risk Discharge criteria are identified: None. Admitted to PCU accompanied by nurse, via stretcher, on monitor. Condition: stable. Property :Personal belongings accompany Pt. 18:33 Patient left the ED. ja5 Signatures: Dispatcher [employer] Liliana El MD MD sd1 Rosa Rodgers, RN RN Dee May, Reg Reg Brandi Porter RN RN [email or web address] Phuong Cope PCA CHILDREN LIBRARIAN ct3 Keaton Morales gr2 Donna Stone, Reg Reg [id number] Angella Wasserman RN RN ja5 Angella Wasserman RN ja5 Corrections: (The following items were deleted from the chart) 14:04 14:01 Presenting complaint: srm srm Chart Complete MTDD
[2016-04-16] MEDS ORDERED: MAG SULF 1GM/100ML (MAG RUN) 1 GM in APPROPRIATE DILUENT 1 EA IV ONE (20:00)
[2016-04-16] MEDS ORDERED: POTASSIUM CHLORIDE 10 MEQ SR TABLET PO ONE (20:00)
[2016-04-16] MEDS: sulfaSALAzine 500 MG TABEC PO SCH (20:33)
[2016-04-16] MEDS: PANTOPRAZOLE 40MG INJ (PROTONIX) (C9113) IV SCH (20:34)
[2016-04-16] MEDS: SERTRALINE HCL 25 MG TABLET PO SCH (20:34)
[2016-04-16] MEDS ORDERED: MAG SULF 1GM/100ML (MAG RUN) 1 GM in APPROPRIATE DILUENT 1 EA IV SCH (21:00)
[2016-04-16 22:00] VITALS: BP 119/68
[2016-04-17 00:04] LABS: MAGNESIUM LEVEL 2.7 MG/DL (1.8-2.4); POTASSIUM SERUM 3.4 MEQ/L (3.5-5.1)
[2016-04-17] MEDS ORDERED: POTASSIUM CHLORIDE 10 MEQ SR TABLET PO ONE ×2 (00:30→09:00)
[2016-04-17] MEDS: SODIUM CHLORIDE 0.9% INJ 10 ML SYR IV PRN ×2 (04:59→13:06)
[2016-04-17 05:14] LABS: BASO % 0.2 % (0.0-1.0); EOS % 0.8 % (0.0-3.0); LARGE UNSTAINED CELL # 0.1 K/mm3 (0.0-0.4); LARGE UNSTAINED CELL % 6.5 % (0.0-4.0); LYMPH # 0.5 K/mm3 (1.5-4.5); LYMPH % 22.3 % (24.0-44.0); MEAN CORPUSCULAR HEMOGLOBIN 33.6 pg (27.0-33.0); MONO # 0.2 K/mm3 (0.0-0.8); MONO % 8.6 % (0.0-5.0); NEUTROPHILS # 1.2 K/mm3 (1.8-7.7); NEUTROPHILS % 61.6 % (36.0-66.0); RED CELL DISTRIBUTION WIDTH 15.2 % (11.5-14.5); WHITE BLOOD COUNT 1.9 K/mm3 (4.0-10.0)
[2016-04-17 05:22] LABS: PLATELET COUNT, AUTOMATED 42 k/mm3 (150-450)
[2016-04-17 06:00] VITALS: BP 102/61
[2016-04-17] MEDS ORDERED: POTA20TA6 PO (06:24)
[2016-04-17 07:35] LABS: BLOOD UREA NITROGEN 11 MG/DL (7-18); GLUCOSE, FASTING 83 MG/DL (83-110)
[2016-04-17 07:36] LABS: ALBUMIN 2.9 GM/DL (3.2-5.2); ALBUMIN/GLOBULIN RATIO 0.85 (1.00-1.93); ALKALINE PHOSPHATASE 140 U/L (45-117); ALT/SGPT 66 U/L (12-78); ANION GAP 9 MEQ/L (8-16); AST/SGOT 47 U/L (15-37); BILIRUBIN,TOTAL 0.6 MG/DL (0.2-1.0); CALCIUM LEVEL 7.7 MG/DL (8.8-10.2); CARBON DIOXIDE LEVEL 24 MEQ/L (21-32); CHLORIDE LEVEL 110 MEQ/L (98-107); CREATININE FOR GFR 0.77 MG/DL (0.55-1.02); GLOMERULAR FILTRATION RATE > 60.0 (>39); MAGNESIUM LEVEL 1.9 MG/DL (1.8-2.4); POTASSIUM SERUM 3.2 MEQ/L (3.5-5.1); SODIUM LEVEL 143 MEQ/L (136-145); TOTAL PROTEIN 6.3 GM/DL (6.4-8.2)
[2016-04-17] MEDS: ADVAIR DISKUS 250/50 INH PWD INH SCH (07:39)
[2016-04-17] MEDS: predniSONE 5 MG TAB PO SCH (08:48)
[2016-04-17] MEDS: SODIUM CHLORIDE 0.9% INJ 10 ML SYR IV SCH (08:49)
[2016-04-17] MEDS: predniSONE 1 MG TAB PO SCH (08:49)
[2016-04-17] MEDS: MULTIVITAMINS/MINERALS THERAP 1 TAB PO SCH (08:49)
[2016-04-17 10:00] VITALS: BP 109/59
--- NOTE | 2016-04-17 12:56 | DSES ---
DATE OF ADMISSION: 04/14/2016 DATE OF DISCHARGE: 04/17/2016 PRIMARY DISCHARGE DIAGNOSES: 1. Chemotherapy induced diarrhea. 2. Chemotherapy induced pancytopenia. 3. Electrolyte abnormalities - hypokalemia, hypomagnesemia due to diarrhea. 4. Lung cancer on chemotherapy. 5. Radiation pneumonitis. 6. Chronic obstructive pulmonary disease (COPD). 7. Dyslipidemia. DISCHARGE MEDICATIONS: Are as follows: - potassium chloride 20 mEq three times a day - acetaminophen 1 gram as needed every 8 hours - Ventolin HFA two puffs as needed - ipratropium albuterol one solution as needed - Xanax 0.25 mg nightly as needed - cyclobenzaprine 10 mg three times a day as needed - Flonase spray one spray daily - Xopenex 1.25 mg four times a day - MagOx 400 mg twice a day - multivitamin one tablet daily - Zofran 4 mg twice a day as needed - Protonix 40 mg daily at bedtime - prednisone 5 mg daily - prochlorperazine 10 mg as needed for nausea - Advair one puff twice a day - sertraline 25 mg by mouth nightly - sulfasalazine 500 mg by mouth nightly HOSPITAL COURSE: This is a 71-year-old female who presented to the emergency room with complaints of dizziness with prior history of lung CA status post chemoradiation and no surgery, radiation pneumonitis, history of Crohn's disease , hypertension, chronic obstructive pulmonary disease (COPD), dyslipidemia, arthritis, pancytopenia, electrolyte abnormalities, low magnesium and potassium secondary to diarrhea after chemotherapy, anxiety and reflux. The patient complained of dizziness for three days with loss of appetite, nausea and vomiting. Diarrhea is described as watery for the past three days and epigastric abdominal pain with vomiting. She had recently undergone chemotherapy on Friday and and was found to have low magnesium and received 2 grams IV infusion as well as a Neulasta shot. The patient was admitted for severe diarrhea, electrolyte abnormalities, and severe pancytopenia. During the admission, the patient did not require red blood cell transfusion. White count initially was 18,000 and decreased to 1.9 despite Neulasta that was given at the cancer center. The patient's platelet count had decreased from admission. Platelet count was 118 to 42 with no active signs of bleeding. Heparin induced antibody was checked, pending the results. GI panel was negative for Clostridium difficile or bacterial infection. Blood culture and urine culture were unremarkable. The patient was supplemented with oral and IV potassium and magnesium and hydrated for her orthostatic dizziness due to severe diarrhea and decreased oral intake. The patient is currently in stable condition for hospital discharge. The patient is to have a follow up CBC, metabolic panel and magnesium as outpatient on 04/18/2016 and 04/19/2016 to be sent to Dr. Cortez for adjustment of her supplements. LABS ON DISCHARGE: White count 11.9, hemoglobin 8.2, hematocrit 24, and platelet count 42. Sodium 143, potassium 3.2, chloride 110, bicarbonate 24, BUN 11, creatinine 0.77, glucose 83, magnesium 1.9. Microbiology and GI panel was negative by PCR. Urine culture 04/15/2016 no growth. Blood culture 04/14/2016 negative. IMAGING STUDIES: CT of chest shows stable appearance. Geographic consolidation right upper, middle and lower lobe. Ground glass infiltrates. Left lower lobe is persistent. No change in small pleural effusion. Right apical emphysema. No pneumothorax or fecal masses. TIME SPENT ON DISCHARGE: 30 minutes. DISCHARGE MEDICATIONS: Are as follows: - potassium chloride 20 mEq three times a day - acetaminophen 1 gram as needed every 8 hours - Ventolin HFA two puffs as needed - ipratropium albuterol one solution as needed - Xanax 0.25 mg nightly as needed - cyclobenzaprine 10 mg three times a day as needed - Flonase spray one spray daily - Xopenex 1.25 mg four times a day - MagOx 400 mg twice a day - multivitamin one tablet daily - Zofran 4 mg twice a day as needed - Protonix 40 mg daily at bedtime - prednisone 5 mg daily - prochlorperazine 10 mg as needed for nausea - Advair one puff twice a day - sertraline 25 mg by mouth nightly - sulfasalazine 500 mg by mouth nightly Addendum dictated: SARAI 04/18/201624 Addendum transcribed: soy 04/18/2016 1113 MTDD
[2016-04-17] MEDS: ONDANSETRON 4MG/2ML VIAL (J2405) IV PRN (13:04)
[2016-04-19 00:09] LABS: CHLORIDE FECAL 76 mmol/L (.); OSMOLARITY STOOL 297 mOsmol/kg (Not Estab.); POTASSIUM FECAL 47 mmol/L (.); SODIUM FECAL 64 mmol/L (.)
== END 2016-04-17 13:20 | disposition home or self-care (01) | DRG 809 ==
LOC: M ED 13:57 → M ED INP 17:33 → M PCU 18:36 → M MSPAV 04-16 10:23
PROVIDERS: ADMIT Internal Medicine; ATTEND General Practice
DX: D61.810 Antineoplastic chemotherapy induced pancytopenia (principal); C34.10 Malignant neoplasm of upper lobe, unspecified bronchus or lung; J70.0 Acute pulmonary manifestations due to radiation; R19.7 Diarrhea, unspecified; E87.6 Hypokalemia; R11.2 Nausea with vomiting, unspecified; E78.5 Hyperlipidemia, unspecified; J44.9 Chronic obstructive pulmonary disease, unspecified; E83.42 Hypomagnesemia; T45.1X5A Adverse effect of antineoplastic and immunosuppressive drugs, initial encounter; Z79.899 Other long term (current) drug therapy; K21.9 Gastro-esophageal reflux disease without esophagitis; F41.9 Anxiety disorder, unspecified; F32.9 Major depressive disorder, single episode, unspecified; D69.6 Thrombocytopenia, unspecified; R00.0 Tachycardia, unspecified; M19.90 Unspecified osteoarthritis, unspecified site

== ENCOUNTER → 2016-04-18 | Outpatient (REF) | payer MEDICARE ==
[~2016-04-18] MED LIST changes: +POTA10CA PO; +POTA20TA PO; +POTA20TA6 PO
[2016-04-18 12:46] LABS: ANION GAP 10 MEQ/L (8-16); BLOOD UREA NITROGEN 14 MG/DL (7-18); CALCIUM LEVEL 8.7 MG/DL (8.8-10.2); CARBON DIOXIDE LEVEL 25 MEQ/L (21-32); CHLORIDE LEVEL 107 MEQ/L (98-107); CREATININE FOR GFR 0.88 MG/DL (0.55-1.02); GLOMERULAR FILTRATION RATE > 60.0 (>39); GLUCOSE, FASTING 103 MG/DL (83-110); MAGNESIUM LEVEL 1.2 MG/DL (1.8-2.4); POTASSIUM SERUM 3.6 MEQ/L (3.5-5.1); SODIUM LEVEL 142 MEQ/L (136-145)
[2016-04-18 13:00] LABS: DIFF SLIDE NUMBER 231; MEAN CORPUSCULAR HEMOGLOBIN 33.6 pg (27.0-33.0); MEAN CORPUSCULAR HGB CONC 33.7 g/dl (32.0-36.5); MEAN CORPUSCULAR VOLUME 99.6 fl (80.0-96.0); RED CELL DISTRIBUTION WIDTH 14.3 % (11.5-14.5); WHITE BLOOD COUNT 2.1 K/mm3 (4.0-10.0)
[2016-04-18 13:15] LABS: PLATELET COUNT, AUTOMATED 38 k/mm3 (150-450)
[2016-04-18 14:45] LABS: BANDS 1 % (< 11)
== END ==
LOC: M LABDRWAD 12:23
PROVIDERS: ATTEND General Practice
DX: R19.7 Diarrhea, unspecified (principal); D61.810 Antineoplastic chemotherapy induced pancytopenia

== ENCOUNTER → 2016-04-19 | Outpatient (REF) | payer MEDICARE ==
[2016-04-19 12:39] LABS: DIFF SLIDE NUMBER 204; MEAN CORPUSCULAR HEMOGLOBIN 35.6 pg (27.0-33.0); MEAN CORPUSCULAR VOLUME 98.9 fl (80.0-96.0); RED CELL DISTRIBUTION WIDTH 14.8 % (11.5-14.5); WHITE BLOOD COUNT 2.9 K/mm3 (4.0-10.0)
[2016-04-19 12:56] LABS: PLATELET COUNT, AUTOMATED 31 k/mm3 (150-450)
[2016-04-19 13:10] LABS: ANION GAP 10 MEQ/L (8-16); BLOOD UREA NITROGEN 15 MG/DL (7-18); CALCIUM LEVEL 8.7 MG/DL (8.8-10.2); CARBON DIOXIDE LEVEL 25 MEQ/L (21-32); CHLORIDE LEVEL 105 MEQ/L (98-107); CREATININE FOR GFR 0.92 MG/DL (0.55-1.02); GLOMERULAR FILTRATION RATE > 60.0 (>39); GLUCOSE, FASTING 116 MG/DL (83-110); POTASSIUM SERUM 3.7 MEQ/L (3.5-5.1); SODIUM LEVEL 140 MEQ/L (136-145)
[2016-04-19 13:56] LABS: BASOPHILS 1 % (0-4)
[2016-04-19 13:57] LABS: TOXIC VACUOLATION 1+
== END ==
LOC: M LABDRWAD 12:09
PROVIDERS: ATTEND General Practice
DX: R19.7 Diarrhea, unspecified (principal); D61.810 Antineoplastic chemotherapy induced pancytopenia

== ENCOUNTER → 2016-04-23 | Outpatient (REF) | payer MEDICARE ==
[2016-04-23 13:55] LABS: MEAN CORPUSCULAR HEMOGLOBIN 34.2 pg (27.0-33.0); MEAN CORPUSCULAR HGB CONC 34.5 g/dl (32.0-36.5); MEAN CORPUSCULAR VOLUME 99.3 fl (80.0-96.0); RED CELL DISTRIBUTION WIDTH 14.9 % (11.5-14.5)
[2016-04-23 14:42] LABS: CALCIUM LEVEL 8.5 MG/DL (8.8-10.2); CREATININE FOR GFR 1.03 MG/DL (0.55-1.02); GLOMERULAR FILTRATION RATE 56.4 (>39); MAGNESIUM LEVEL 1.1 MG/DL (1.8-2.4); POTASSIUM SERUM 3.9 MEQ/L (3.5-5.1)
== END ==
LOC: M LABDRWAD 12:43
PROVIDERS: ATTEND Internal Medicine Medical Oncology
DX: C34.31 Malignant neoplasm of lower lobe, right bronchus or lung (principal)

== ENCOUNTER 2016-04-24 10:14 | Outpatient (CLI) | payer MEDICARE ==
[~2016-04-24] VITALS: Ht 167.6 cm; Wt 68.2 kg
[~2016-04-24 10:14] MED LIST changes: +SODIUM CHLORIDE 0.9% INJ 10 ML SYR IV SCH
[2016-04-24] MEDS ORDERED: ACETAMINOPHEN TAB 650MG DOSE (2X325MG) PO ONE (11:00)
[2016-04-24] MEDS ORDERED: diphenhydrAMINE 25 MG CAP PO ONE (11:00)
== END 2016-04-24 15:30 | disposition home or self-care (01) ==
LOC: M INFU 10:14
PROVIDERS: ATTEND Internal Medicine Medical Oncology
DX: C34.90 Malignant neoplasm of unspecified part of unspecified bronchus or lung (principal); Z79.51 Long term (current) use of inhaled steroids; Z79.52 Long term (current) use of systemic steroids; Z88.5 Allergy status to narcotic agent; Z88.8 Allergy status to other drugs, medicaments and biological substances; J45.909 Unspecified asthma, uncomplicated; K50.90 Crohn's disease, unspecified, without complications; Z87.891 Personal history of nicotine dependence; Z79.899 Other long term (current) drug therapy
CPT/HCPCS: 36430; P9034

== ENCOUNTER 2016-05-02 11:30 | Outpatient (CLI) | payer MEDICARE ==
[~2016-05-02] VITALS: Ht 167.6 cm; Wt 68.2 kg
[~2016-05-02 11:30] MED LIST changes: +ACETAMINOPHEN TAB 650MG DOSE (2X325MG) PO ONE; +diphenhydrAMINE 50 MG CAP PO ONE
== END 2016-05-02 16:45 | disposition home or self-care (01) ==
LOC: M INFU 11:30
PROVIDERS: ATTEND Internal Medicine Medical Oncology
DX: D64.9 Anemia, unspecified (principal); C34.90 Malignant neoplasm of unspecified part of unspecified bronchus or lung; K50.90 Crohn's disease, unspecified, without complications; J45.909 Unspecified asthma, uncomplicated; M79.7 Fibromyalgia; Z88.5 Allergy status to narcotic agent; Z88.8 Allergy status to other drugs, medicaments and biological substances; Z79.51 Long term (current) use of inhaled steroids; Z79.52 Long term (current) use of systemic steroids; Z79.899 Other long term (current) drug therapy
CPT/HCPCS: 36430; 86850; 86870; 86920; P9016

== ENCOUNTER → 2016-05-08 | Outpatient (REF) | payer MEDICARE ==
[~2016-05-08] MED LIST changes: -ACETAMINOPHEN TAB 650MG DOSE (2X325MG) PO ONE; -SODIUM CHLORIDE 0.9% INJ 10 ML SYR IV SCH; -diphenhydrAMINE 50 MG CAP PO ONE
== END ==
LOC: M LAB REF 12:55
PROVIDERS: ATTEND Internal Medicine Medical Oncology
DX: C34.90 Malignant neoplasm of unspecified part of unspecified bronchus or lung (principal)

== ENCOUNTER → 2016-05-23 | Outpatient (REF) | payer MEDICARE ==
[~2016-05-23] MED LIST changes: +SERT25TA PO; -SERT25TA85 PO
== END ==
LOC: M LAB REF 12:48
PROVIDERS: ATTEND Internal Medicine Medical Oncology
DX: C34.90 Malignant neoplasm of unspecified part of unspecified bronchus or lung (principal)

== ENCOUNTER → 2016-07-03 | Outpatient (CLI) | payer MEDICARE ==
--- NOTE | 2016-07-03 19:29 | REP ---
Whole body PET CT scan: Comparison is the prior PET CT scan dated 2015. There is also a comparison CT of the chest dated 04/14/2016. Whole body PET CT scanning is performed from skull base to the upper thighs. Neck and supraclavicular areas: There are no hypermetabolic foci. This is unchanged. Chest: There is again uptake in a normal size paratracheal, superior mediastinal node. The standard uptake value today is 4.5. This was 4.7 previously. On the previous scan there was hypermetabolic uptake in a new lung nodule posterior laterally in the right upper lobe. This nodule is no longer present. The original lung nodule in the posterior basilar segment of the right lower lobe was not identified on the comparison PET scan and is not identified today. There is no hypermetabolic uptake in this location. There is a right pleural effusion in this location today similar the comparison PET scan. There is a new focus of hypermetabolic uptake in the lateral myocardium of the right ventricle, not present previously, with a standard uptake value of 7.4. The infiltrate versus radiation fibrosis is again noted in the right perihilar area as previously. No focal nodular densities are identified within this area. Standard uptake value within this area of fibrosis is 2.1. Abdomen, pelvis and upper thighs: Review prior reports the film jacket reveals additional history of Crohn disease of the large intestine. Bowel uptake on PET scanning is nonspecific as a consequence of all peristalsis. However, the uptake in the descending colon appears slightly greater than the remainder of the bowel. Upon review this pattern is similar to the prior study. There are foci of greater uptake in the distal descending colon with the standard uptake value measuring 5.3. More proximal in the descending colon uptake in the wall is is less intense with the SUV measuring 2.6. There are no other foci in the abdomen, pelvis or thighs. Specifically there is no adrenal hepatic uptake. Impression: Hypermetabolic uptake is again noted in the single normal size anterior mediastinal paratracheal node, not significantly changed. There is new hypermetabolic uptake in the myocardium of the right ventricle, not present previously, with a standard uptake value of 7.4. Right perihilar infiltrate versus radiation fibrosis is again noted, unchanged. The original right lower lobe lung nodule was not identified on the comparison CT scan and is not identified today. The new right lung nodule identified on the comparison PET scan is no longer identified today. There are no hypermetabolic foci in the abdomen, pelvis or upper thighs. However, the uptake in the descending colon appears to be slightly greater than the remainder of the bowel, possibly related to the patient's known Crohn's colitis. The study is performed without 0.0 mCi of F 18 F D G. Signed by Sarthak Wiggins MD 07/03/2016 07:21 P
== END ==
LOC: M PLARAD 09:31
PROVIDERS: ATTEND Internal Medicine Medical Oncology
DX: C34.91 Malignant neoplasm of unspecified part of right bronchus or lung (principal)
CPT/HCPCS: 78815; A9552

== ENCOUNTER → 2016-10-18 | Outpatient (CLI) | payer MEDICARE ==
[~2016-10-18] MED LIST changes: +ACET-683 PO; +ACET25TA12 PO; -ACET25TA5 PO; -ACET500T37 PO; -APAP325T PO; +APAP325T4 PO; +ASPI325T PO; +ASPI81TA21 PO; +AZIT-12 PO; -AZIT250T3 PO; +CIPR-249 PO; +CYAN1000VL IM; +ENOX60IN3 SC; +ISOVUE-370 76% 100ML VIAL (Q9967) As Ordered ONE; -ONDA1TAB15 PO; -ONDA1TAB16 PO; +ONDA4TAB5 PO; +ONDA8TAB7 PO; +PRED1TABL PO; +RANI15TA PO; +RANI300T PO; +SIMV20TA2 PO; +SIMV40TA2 PO; +SUCR1SS PO; +VOLT1GEL15 TD; -VOLT1GEL24 TD; +ZOFR8TAB PO
--- NOTE | 2016-10-18 12:22 | REP ---
CT of the chest with IV contrast: Comparisons are the PET scan dated 07/03/[address] dated 04/14/2016. There is a right pleural effusion, not significantly changed from the prior studies. There is right perihilar/paramediastinal fibrotic change, possibly secondary to radiation, unchanged from the comparison studies. There are no lung masses or infiltrates. There is a borderline enlarged anterior paratracheal mediastinal node measuring up to 10 mm short axis. This is the note that demonstrated hypermetabolic uptake on the comparison PET scan. No other mediastinal adenopathy is identified. There is no left hilar adenopathy. The right hilus is obscured by the fibrotic changes. There is no axillary adenopathy. The thoracic aorta is unremarkable. There appears to be a focal loculated collection of pleural fluid along the anterior-superior myocardium. There is no pericardial effusion otherwise. The visualized upper abdominal contents are unremarkable. There is no adrenal mass. Impression: There appears to be a focal loculated pericardial fluid collection along the anterior superior pericardium. No pericardial effusion otherwise. Chronic right perihilar/right paramediastinal fibrotic changes are identified, possibly from radiation therapy. There is a right pleural effusion, not significantly changed from the comparison studies. There is an enlarged superior mediastinal paratracheal lymph node. This lymph node demonstrated hypermetabolic uptake on the comparison PET scan. No lung masses, nodules, infiltrates or effusions are identified. Signed by Sarthak Wiggins MD 10/18/2016 12:14 P
== END ==
LOC: M RAD 10:52
PROVIDERS: ATTEND Internal Medicine Medical Oncology
DX: C34.91 Malignant neoplasm of unspecified part of right bronchus or lung (principal)
CPT/HCPCS: 71260; Q9967

== ENCOUNTER 2016-11-01 12:25 | Emergency (ER) | payer MEDICARE ==
[~2016-11-01] VITALS: Ht 170.2 cm; Wt 65.4 kg
[~2016-11-01 12:25] MED LIST changes: -ASPI325T PO; -ASPI81TA21 PO; -CIPR-249 PO; -CYAN1000VL IM; -ENOX60IN3 SC; -ISOVUE-370 76% 100ML VIAL (Q9967) As Ordered ONE; -PRED1TABL PO; -RANI15TA PO; -RANI300T PO; -SIMV20TA2 PO; -SIMV40TA2 PO; -SUCR1SS PO; -ZOFR8TAB PO
[2016-11-01] MEDS ORDERED: SUCR1SS PO (12:43)
[2016-11-01] MEDS ORDERED: K-TA1TAB PO (12:43)
[2016-11-01] MEDS ORDERED: RANI15TA PO (12:43)
[2016-11-01 13:54] LABS: BASO % 0.5 % (0.0-1.0); EOS # 0.1 K/mm3 (0.0-0.50); LARGE UNSTAINED CELL # 0.1 K/mm3 (0.0-0.4); LARGE UNSTAINED CELL % 1.6 % (0.0-4.0); LYMPH # 1.1 K/mm3 (1.5-4.5); LYMPH % 13.5 % (24.0-44.0); MEAN CORPUSCULAR HEMOGLOBIN 35.2 pg (27.0-33.0); MEAN CORPUSCULAR HGB CONC 35.7 g/dl (32.0-36.5); MEAN CORPUSCULAR VOLUME 98.5 fl (80.0-96.0); MONO # 0.5 K/mm3 (0.0-0.8); MONO % 7.7 % (0.0-5.0); NEUTROPHILS # 5.3 K/mm3 (1.8-7.7); NEUTROPHILS % 74.7 % (36.0-66.0); PLATELET COUNT, AUTOMATED 202 k/mm3 (150-450); RED CELL DISTRIBUTION WIDTH 12.7 % (11.5-14.5)
[2016-11-01 14:20] LABS: ALBUMIN 4.1 GM/DL (3.2-5.2); BILIRUBIN,DIRECT 0.1 MG/DL (0.0-0.2); BILIRUBIN,TOTAL 0.8 MG/DL (0.2-1.0); CALCIUM LEVEL 8.8 MG/DL (8.8-10.2); CREATININE FOR GFR 1.01 MG/DL (0.55-1.02); GLOMERULAR FILTRATION RATE 57.7 (>39); MAGNESIUM LEVEL 1.5 MG/DL (1.8-2.4); POTASSIUM SERUM 3.1 MEQ/L (3.5-5.1); THYROXINE (T4) 16.7 UG/DL (4.5-12.0); TOTAL PROTEIN 8.2 GM/DL (6.4-8.2)
[2016-11-01] MEDS ORDERED: ISOVUE-370 76% 100ML VIAL (Q9967) As Ordered ONE (14:26)
--- NOTE | 2016-11-01 15:45 | REP ---
CT study of the chest with IV contrast: History: History of pericardial effusion October 18, 2016. The patient has a history of adenocarcinoma of the lung. Comparison is also made with the most recent PET-CT study from July 03, 2016. CT contrast dose: 75 ml of Isovue [address] findings: A small right pleural effusion is again seen. There is a small quantity of pericardial fluid visible anteriorly. There is a small amount of pericardial fluid visible at the base of the heart posteriorly as well. This is felt to be unchanged from the recent prior CT study of October 18, 2016. The pretracheal lymph node noted previously is again seen unchanged measuring 10 mm in greatest diameter. There are one or two adjacent small lymph nodes. There is a larger enhancing subcarinal lymph node measuring 1.8 x 1.3 cm. This is unchanged. There is chronic fibrosis with air bronchograms in the right upper lobe and through the right perihilar region postradiation. There is a right-sided Fccbhz-Y-Aetp catheter with its tip in the superior vena cava. No new adenopathy is seen. No adrenal lesion is observed. There are clips in the gallbladder fossa. No focal liver lesion is seen. There are periaortic and pericaval lymph nodes at the bottom edge of the field of view on today's CT image. These include a suspicious enhancing lymph node 2.6 cm in diameter at the celiac axis. This is new when compared with the April 14, 2016 study. These nodes are considered suspicious for metastatic adenopathy. There is a new 2 cm area of low density or nonenhancement in the anterior tip of the spleen. This was not previously apparent. It may reflect a small infarct or a small splenic cyst. Impression: 1. Small pericardial effusion and small right pleural effusion, unchanged from the most recent prior study. 2. New adenopathy in the celiac axis upper abdomen suspicious for metastatic disease. 3. Stable mediastinal lymph nodes unchanged from the most recent study of October 18, 2016. 4. New 2 cm peripheral low density area in the anterior tip of the spleen. This may be a tiny infarct or small cyst. Signed by Alon Cotton MD 11/01/2016 04:59 P
[2016-11-01] MEDS ORDERED: CIPR-249 PO (15:46)
[2016-11-01 15:49] VITALS: BP 170/86
[2016-11-01] MEDS ORDERED: POTASSIUM CHLORIDE 10 MEQ SR TABLET PO ONE (16:00)
--- NOTE | 2016-11-02 08:00 | ED PDOC ---
Post-Departure Follow-Up dr raul ponce faxed formal report of ct chest for fu Herson Marques MD Nov 02, 2016 08:00
== END 2016-11-01 15:58 | disposition home or self-care (01) ==
LOC: M ED 12:25
DX: N39.0 Urinary tract infection, site not specified (principal); E87.6 Hypokalemia; C34.90 Malignant neoplasm of unspecified part of unspecified bronchus or lung; I31.3 Pericardial effusion (noninflammatory); J90 Pleural effusion, not elsewhere classified; I77.89 Other specified disorders of arteries and arterioles; D73.9 Disease of spleen, unspecified; J45.909 Unspecified asthma, uncomplicated; K50.919 Crohn's disease, unspecified, with unspecified complications; Z87.891 Personal history of nicotine dependence; Z79.899 Other long term (current) drug therapy; Z88.5 Allergy status to narcotic agent; Z88.6 Allergy status to analgesic agent; Z88.8 Allergy status to other drugs, medicaments and biological substances
CPT/HCPCS: 36415; 71260; 80048; 80076; 81001; 83735; 84436; 84443; 84479; 85025; 87186; 99284; Q9967

== ENCOUNTER 2016-12-14 12:31 | Observation (INO) | payer MEDICARE ==
[~2016-12-14] VITALS: Ht 167.6 cm; Wt 64.0 kg
[2016-12-14] MEDS: ADVAIR HFA 115/21MCG INHALER INH SCH (03:44)
[~2016-12-14 12:31] MED LIST changes: +CIPR-249 PO; +RANI15TA PO; +SUCR1SS PO
[2016-12-14] MEDS ORDERED: ASPI325T PO (12:48)
[2016-12-14 13:45] LABS: BASO % 0.2 % (0.0-1.0); EOS # 0.1 10^3/uL (0.0-0.50); EOS % 1.4 % (0.0-3.0); IMMATURE GRANULOCYTE % 0.5 % (0-0); LYMPH # 0.7 10^3/uL (1.5-4.5); MEAN CORPUSCULAR HEMOGLOBIN 33.7 pg (27.0-33.0); MEAN CORPUSCULAR HGB CONC 36.5 g/dl (32.0-36.5); MEAN CORPUSCULAR VOLUME 92.5 fl (80.0-96.0); MONO # 0.8 10^3/uL (0.0-0.8); MONO % 12.2 % (0.0-5.0); NEUTROPHILS # 4.9 10^3/uL (1.8-7.7); NEUTROPHILS % 75.7 % (36.0-66.0); PLATELET COUNT, AUTOMATED 137 10^3/uL (150-450); RED CELL DISTRIBUTION WIDTH 11.5 % (11.5-14.5); WHITE BLOOD COUNT 6.5 10^3/uL (4.0-10.0)
[2016-12-14 13:47] LABS: ADD MANUAL DIFFER NO; DIFF SLIDE NUMBER 151
[2016-12-14 14:00] LABS: ANION GAP 10 MEQ/L (8-16); BLOOD UREA NITROGEN 9 MG/DL (7-18); CALCIUM LEVEL 8.6 MG/DL (8.8-10.2); CARBON DIOXIDE LEVEL 27 MEQ/L (21-32); CHLORIDE LEVEL 95 MEQ/L (98-107); CREATININE FOR GFR 0.82 MG/DL (0.55-1.02); GLOMERULAR FILTRATION RATE > 60.0 (>39); GLUCOSE, FASTING 89 MG/DL (83-110); MAGNESIUM LEVEL 1.6 MG/DL (1.8-2.4); SODIUM LEVEL 132 MEQ/L (136-145)
[2016-12-14 14:21] LABS: POTASSIUM SERUM 2.6 MEQ/L (3.5-5.1)
[2016-12-14] MEDS ORDERED: MAGNESIUM GLUCONATE 500 MG TAB PO ONE (14:45)
[2016-12-14] MEDS ORDERED: POTASSIUM CHLORIDE 10 MEQ SR TABLET PO ONE ×2 (14:45→19:15)
[2016-12-14] MEDS ORDERED: POTASSIUM CHLORIDE 10% LIQ 20 MEQ/15 ML UDC PO ONE (15:00)
[2016-12-14] MEDS ORDERED: MAG SULF 1GM/100ML (MAG RUN) 1 GM in APPROPRIATE DILUENT 1 EA IV ONE ×2 (15:00→19:15)
[2016-12-14] MEDS ORDERED: NS 500 ML IV ONE (15:00)
[2016-12-14 17:45] LABS: ANION GAP 8 MEQ/L (8-16); BLOOD UREA NITROGEN 10 MG/DL (7-18); CALCIUM LEVEL 8.3 MG/DL (8.8-10.2); CARBON DIOXIDE LEVEL 29 MEQ/L (21-32); CHLORIDE LEVEL 97 MEQ/L (98-107); GLOMERULAR FILTRATION RATE > 60.0 (>39); GLUCOSE, FASTING 102 MG/DL (83-110); SODIUM LEVEL 134 MEQ/L (136-145)
[2016-12-14] MEDS ORDERED: NS 1,000 ML IV SCH (18:59)
[2016-12-14] MEDS ORDERED: ONDANSETRON 4MG/2ML VIAL (J2405) IV PRN (19:00)
[2016-12-14] MEDS ORDERED: LEVALBUTEROL 1.25 MG/0.5 ML CONCENTRATE NEB INH PRN (19:15)
[2016-12-14] MEDS ORDERED: IPRATROPIUM 0.02% SOLN 0.5MG/2.5 ML NEB INH PRN (19:15)
[2016-12-14] MEDS ORDERED: CYAN1000VL IM (19:26)
[2016-12-14] MEDS ORDERED: ONDA8TAB7 PO (19:26)
[2016-12-14] MEDS ORDERED: CYCLOBENZAPRINE 10 MG TAB PO PRN (19:30)
--- NOTE | 2016-12-14 20:59 | HPE ---
DATE OF ADMISSION: 12/14/2016 ONCOLOGIST: Dr. Cortez. DIRECTOR SCRIPT: Dr. Levy. CARPENTER RAILCAR: Dr. Castillo. CHIEF COMPLAINT: Diarrhea. HISTORY OF PRESENT ILLNESS: The patient is a 71-year-old female who has had diarrhea since being discharged from a hospital in [place] last week. She was admitted there when she presented with visual disturbances and facial numbness, and was found to have a right posterior cerebral artery cerebrovascular accident (CVA) by MRI. She was admitted there for three days and then subsequently discharged. She had been in [place] only visiting her son after completing treatment for chemotherapy and radiation for her lung cancer, and since returning to the area, she has been having diarrhea. She has had trouble with diarrhea during her treatment with chemotherapy in the past, and can tell when her potassium is low as she becomes weak, and felt there her potassium was low. Sure enough when she presented to the emergency room, she was found to have her potassium of 2.6. At the present time, the patient is feeling better. She denies any changes diet or otherwise recent travel or sick contacts, fevers, chills. She denies nausea or vomiting. PAST MEDICAL HISTORY: 1. Crohn's disease. 2. Recent CVA in [place]. 3. Geb-upwrv-nebm lung cancer, status post chemotherapy and radiation. 4. Radiation pneumonitis. There was some concern that the patient's chemotherapy may have caused her CVA. 5. Hypertension. 6. Chronic obstructive pulmonary disease (COPD). 7. Dyslipidemia. 8. Osteoarthritis. 9. Pancytopenia related to chemotherapy, resolving. 10. Anxiety. 11. Gastroesophageal reflux disease. ALLERGIES: FENTANYL, DILAUDID, INFLIXIMAB, MORPHINE, NON-STEROIDAL ANTI-INFLAMMATORY DRUGS. High dose of PREDNISONE causes psychosis. PAST SURGICAL HISTORY: 1. Hysterectomy. 2. Tonsillectomy. 3. Cholecystectomy. 4. Multiple bowel surgeries. FAMILY HISTORY: Noncontributory. REVIEW OF SYSTEMS: Negative other than in history of present illness (HPI). SOCIAL HISTORY: She has a [id number]-amwc history but has not smoked for a decade. She lives alone. 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 She is DO NOT RESUSCITATE (DNR), DO NOT INTUBATE (DNI) . She also has a Medical Orders for Life-Sustaining Treatment (MOLST) form with her, as well as records from her recent discharges. HOME MEDICATIONS: - extra-strength Tylenol every eight hours as needed for pain or fever - Ventolin HFA two puffs inhaled every four hours as needed for shortness of breath - DuoNeb every four hours as needed for shortness of breath - Xanax 0.25 mg by mouth at bedtime as needed for anxiety - aspirin 325 mg daily - cyclobenzaprine 10 mg three times a day as needed for muscle spasms - Flonase 5 mcg at bedtime as needed for allergies - Xopenex 1.25 mg nebulizer four times a day as needed for shortness of breath - magnesium oxide 400 mg tablet by mouth three times a day - Zofran 8 mg twice a day as needed for nausea or vomiting - potassium 20 mEq by mouth twice a day - prochlorperazine 10 mg as needed for nausea or vomiting - ranitidine 300 mg by mouth twice a day - Advair Diskus 250/50 inhaled daily - Carafate 10 mL by mouth before meals and at bedtime - sulfasalazine 500 mg at bedtime PHYSICAL EXAMINATION: VITAL SIGNS: Temperature 99.2, heart rate 96, respiratory rate 18, blood pressure 109/55, oxygen saturation 97% on room air. GENERAL: She is well-groomed pleasant female lying flat in bed. She appears younger than her stated age. She is emotionally labile and is tearful during her exam without identifiable reason. She does not appear to be in any acute distress, however, otherwise. HEENT: Cranial nerves II through XII are grossly intact. She has mildly dry mucous membranes. No elevation of central venous pressure (CVP). CARDIOVASCULAR: S1, S2. She is mildly tachycardic but no distant heart sounds appreciated. RESPIRATORY: Exam is clear. ABDOMEN: Bowel sounds are present. The abdomen is soft. There is some mild tenderness to palpation in the lower quadrants, but only to deep palpation. EXTREMITIES: No clubbing, cyanosis or edema. LABORATORY DATA: WBC 6.5, hemoglobin 11.2, platelet count 137. Chemistry panel: Sodium 134, potassium 3.0, chloride 97, bicarbonate 29, BUN 10, creatinine 0.9. MICROBIOLOGY: A GI PCR panel is pending. One set of blood cultures is pending. ASSESSMENT AND PLAN: This is a 71-year-old female with dehydration secondary to diarrhea. 1. Dehydration secondary to diarrhea, likely she is hypovolemic, hyponatremic, hypochloremic, hypokalemic, hypomagnesemic. We will continue with her gentle intravenous (IV) fluid resuscitation as well as potassium by mouth and magnesium IV. Her diarrhea may be related to her recent hospitalization. Followup her gastrointestinal (GI) polymerase chain reaction (PCR) panel to ensure she has not developed Clostridium (C.) difficile while in the hospital or other infectious etiology. It is also possibly related to her quite intense magnesium use. We will hold off on any oral magnesium and continue with IV magnesium supplementation as needed. We will recheck her laboratory studies in the morning. They do appear to be improving at this time. However, if she fails to respond with the aforementioned measures and continues to have diarrhea, could consider seeking help from Dr. Castillo for evaluation of the patient's Crohn's disease. She follows with him in the outpatient setting. 2. Recent cerebrovascular accident (CVA). Continue with full-dose aspirin and simvastatin. She has seen her primary care provider since returning and has been established for therapy in the outpatient setting. She may benefit from an outpatient neurology referral. 3. Anxiety, fairly significant. She is only taking Xanax at bedtime. I will provide her with every eight hours as needed while in hospital. 4. Chronic obstructive pulmonary disease (COPD). We will provide her with ipratropium and Xopenex while in hospital. She has not had any oxygen requirements and appears to be at her baseline respiratory status. 5. Muscle spasms. Continue with cyclobenzaprine. 6. Chronic nausea. We will provider her with IV Zofran and prochlorperazine as needed. 7. Gastroesophageal reflux disease. Continue with ranitidine and Carafate. DISPOSITION: The patient is admitted to observation status. Dr. Linda Lobo's service will continue following the patient at 7 a.m. [facility]
[2016-12-14] MEDS: SUCRALFATE SUSP 1GM/10ML UD PO SCH (21:00)
[2016-12-14] MEDS: FAMOTIDINE 20 MG TAB PO SCH (21:51)
[2016-12-14] MEDS: sulfaSALAzine 500 MG TABEC PO SCH (21:51)
[2016-12-14] MEDS: SIMVASTATIN 20 MG TAB PO SCH (21:52)
[2016-12-14] MEDS: ENOXAPARIN 40 MG/0.4 ML SYRINGE (J1650) SC SCH (21:53)
[2016-12-15 00:10] VITALS: BP 122/65
[2016-12-15] MEDS: ALPRAZolam 0.25 MG TAB PO PRN ×2 (00:31→22:09)
[2016-12-15] MEDS: ACETAMINOPHEN TAB 650MG DOSE (2X325MG) PO PRN ×3 (00:32→22:10)
[2016-12-15 06:00] VITALS: BP 105/56
[2016-12-15 06:05] LABS: MEAN CORPUSCULAR HGB CONC 35.9 g/dl (32.0-36.5); MEAN CORPUSCULAR VOLUME 94.8 fl (80.0-96.0); RED CELL DISTRIBUTION WIDTH 11.7 % (11.5-14.5); WHITE BLOOD COUNT 4.4 10^3/uL (4.0-10.0)
[2016-12-15 06:24] LABS: ANION GAP 7 MEQ/L (8-16); BLOOD UREA NITROGEN 7 MG/DL (7-18); CALCIUM LEVEL 8.1 MG/DL (8.8-10.2); CARBON DIOXIDE LEVEL 28 MEQ/L (21-32); CHLORIDE LEVEL 102 MEQ/L (98-107); CREATININE FOR GFR 0.73 MG/DL (0.55-1.02); GLOMERULAR FILTRATION RATE > 60.0 (>39); GLUCOSE, FASTING 86 MG/DL (83-110); SODIUM LEVEL 137 MEQ/L (136-145)
[2016-12-15] MEDS: ADVAIR HFA 115/21MCG INHALER INH SCH ×2 (07:11→19:26)
[2016-12-15] MEDS: SUCRALFATE SUSP 1GM/10ML UD PO SCH ×4 (07:42→20:11)
[2016-12-15] MEDS: KCL 40MEQ in NS 1000ML 1,000 ML IV SCH ×2 (07:43→20:11)
[2016-12-15] MEDS: ASPIRIN 325 MG TAB PO SCH (08:43)
[2016-12-15] MEDS: POTASSIUM CHLORIDE 10 MEQ SR TABLET PO SCH ×2 (08:44→20:11)
[2016-12-15] MEDS: FAMOTIDINE 20 MG TAB PO SCH ×2 (08:44→20:12)
[2016-12-15] MEDS: predniSONE 5 MG TAB PO SCH (10:19)
[2016-12-15] MEDS: FLUTICASONE PROP 0.05% NASAL SPRAY 16 GM (FLONASE) SCH (10:48)
--- NOTE | 2016-12-15 10:56 | IPNPDOC ---
Subjective Date Seen The patient was seen on 12/15/16. Subjective Chief Complaint/HPI The patient is a 71-year-old female admitted with a reason for visit of Abnormal Labs. Events since last encounter feeling a little better this am. diarrhea less frequent. no fever or chills, no abdominal pain , no nausea or vomiting , no chest pain or sob , has some intermittent tigning and numbness and weakness of the left face , upper extremity last for few seconds going on since her stroke. Objective Physical Examination General Exam: Positive: Alert, Cooperative, No Acute Distress Eye Exam: Positive: PERRLA, Conjunctiva & lids normal, EOMI, Negative: Sclera icteric Neck Exam: Positive: Supple, Negative: JVD, thyromegaly Chest Exam: Positive: Clear to auscultation, Normal air movement Heart Exam: Positive: Rate Normal, Regular Rhythm, Normal S1, Normal S2, Negative: Murmurs, Rubs Abdomen Exam: Positive: Normal bowel sounds, Soft, Negative: Tenderness, Hepatospenomegaly Extremity Exam: Positive: Normal pulses, Negative: Clubbing, Cyanosis, Edema Skin Exam: Negative: Nl turgor and temperature, Rash, Breakdown, Lesion, Pruritus, Other skin issue Assessment /Plan Problems (1) Electrolyte abnormality Status: Acute Problem Text: hypokalemia and hypomagnesemia due to diarrhea. being replaced. (2) Diarrhea with dehydration Status: Acute Problem Text: will continue with ivf GI panel negative. may be crohns flare as recently there was a change in diet when she was visiting her sons and was hospitalized for stroke. if diarrhea does not improve will consider starting steroids. (3) Crohn's disease Status: Chronic Problem Text: continue with home meds. 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 diagnosed on 12/03/16 when she had presented to a hospital in [facility] for visual probs and disbalance. 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 finished radiation in 2015 and finished chemotherapy in june of 2016 had possible radiation pneumonitis which has resolved and chemotherapy induced pancytopenia improving. (6) Dyslipidemia Status: Chronic (7) COPD (chronic obstructive pulmonary disease) Status: Chronic Problem Text: continue advair , ipratropium and xopenex. (8) Hypertension Status: Chronic Plan/VTE VTE Prophylaxis Ordered?: Yes VS, I&O, 24H, Fishbone Vital Signs/I&O Vital Signs Date Time Temp Pulse Resp B/P (MAP) Pulse Ox O2 Delivery O2 Flow Rate FiO2 12/15/16 06:00 96.9 74 15 105/56 (72) 95 Room Air I&O- Last 24 Hours up to 6 AM 12/16/16 06:00 Intake Total 600 ml Balance 600 ml Laboratory Data 24H LABS Laboratory Tests 2 12/14/16 13:34: Immature Granulocyte % (Auto) 0.5H, White Blood Count 6.5, Red Blood Count 3.32L , Hemoglobin 11.2L, Hematocrit 30.7L, Mean Corpuscular Volume 92.5, Mean Corpuscular Hemoglobin 33.7H, Mean Corpuscular Hemoglobin Concent 36.5, Red Cell Distribution Width 11.5, Platelet Count 137L, Neutrophils (%) (Auto) 75.7H , Lymphocytes (%) (Auto) 10.0L, Monocytes (%) (Auto) 12.2H, Eosinophils (%) ( Auto) 1.4, Basophils (%) (Auto) 0.2, Neutrophils # (Auto) 4.9, Lymphocytes # ( Auto) 0.7L, Monocytes # (Auto) 0.8, Eosinophils # (Auto) 0.1, Basophils # (Auto ) 0.0, Immature Granulocyte # (Auto) 0.0, Nucleated Red Blood Cells % (auto) 0.0 , Anion Gap 10, Glomerular Filtration Rate > 60.0, Blood Urea Nitrogen 9, Creatinine 0.82, Sodium Level 132L, Potassium Level 2.6*L, Chloride Level 95L, Carbon Dioxide Level 27, Calcium Level 8.6L, Magnesium Level 1.6L 12/14/16 17:18: Anion Gap 8, Glomerular Filtration Rate > 60.0, Blood Urea Nitrogen 10, Creatinine 0.90, Sodium Level 134L, Potassium Level 3.0L, Chloride Level 97L, Carbon Dioxide Level 29, Calcium Level 8.3L, Magnesium Level 2.0 12/15/16 05:44: Anion Gap 7L, Glomerular Filtration Rate > 60.0, Blood Urea Nitrogen 7, Creatinine 0.73, Sodium Level 137, Potassium Level 3.0L, Chloride Level 102, Carbon Dioxide Level 28, Calcium Level 8.1L, Magnesium Level 2.0 CBC/BMP Laboratory Tests 12/14/16 13:34 Red Blood Count 3.32 L, Mean Corpuscular Volume 92.5, Mean Corpuscular Hemoglobin 33.7 H, Mean Corpuscular Hemoglobin Concent 36.5, Red Cell Distribution Width 11.5, Neutrophils (%) (Auto) 75.7 H, Lymphocytes (%) (Auto) 10.0 L, Monocytes (%) (Auto) 12.2 H, Eosinophils (%) (Auto) 1.4, Basophils (%) ( Auto) 0.2, Neutrophils # (Auto) 4.9, Lymphocytes # (Auto) 0.7 L, Monocytes # ( Auto) 0.8, Eosinophils # (Auto) 0.1, Basophils # (Auto) 0.0, Calcium Level 8.6 L 12/14/16 17:18 Calcium Level 8.3 L 12/15/16 05:44 Red Blood Count 2.91 L, Mean Corpuscular Volume 94.8, Mean Corpuscular Hemoglobin 34.0 H, Mean Corpuscular Hemoglobin Concent 35.9, Red Cell Distribution Width 11.7, Calcium Level 8.1 L Microbiology Microbiology 12/14/16 Blood Culture, Received Pending 12/14/16 Gastrointestinal Tract Panel (PCR) - Final, Complete BETH MARIN MD Dec 15, 2016 10:56
--- NOTE | 2016-12-15 12:38 | ECGEPIP ---
Stationary ECG Study [facility] - ED Test Date: 2016-12-14 Pat Name: LISA MCDONALD Department: Room: - Gender: F Machine Biller: frank : 1945 Requested By: CHELLY Henderson Order Number: [id number] Reading MD: Liliana Reilly Measurements Intervals [place] Rate: 89 P: 34 SD: 191 QRS: 30 QRSD: 94 T: 52 QT: 336 QTc: 411 Interpretive Statements SINUS RHYTHM WITH SINUS ARRHYTHMIA LAE NSTTW ABNORMALITY DECREASED RATE 04/14/16 Electronically Signed On 12-15-2016 12:38:07 EDT by Liliana Reilly
[2016-12-15] MEDS: sulfaSALAzine 500 MG TABEC PO SCH (20:11)
[2016-12-15] MEDS: SIMVASTATIN 20 MG TAB PO SCH (20:12)
[2016-12-15] MEDS: ENOXAPARIN 40 MG/0.4 ML SYRINGE (J1650) SC SCH (20:12)
[2016-12-15 22:00] VITALS: BP 107/58
[2016-12-16 05:49] LABS: MEAN CORPUSCULAR HEMOGLOBIN 33.8 pg (27.0-33.0); MEAN CORPUSCULAR HGB CONC 34.6 g/dl (32.0-36.5); MEAN CORPUSCULAR VOLUME 97.8 fl (80.0-96.0); RED CELL DISTRIBUTION WIDTH 11.8 % (11.5-14.5); WHITE BLOOD COUNT 4.2 10^3/uL (4.0-10.0)
[2016-12-16 06:00] VITALS: BP 106/56
[2016-12-16 06:15] LABS: ANION GAP 8 MEQ/L (8-16); BLOOD UREA NITROGEN 8 MG/DL (7-18); CALCIUM LEVEL 8.2 MG/DL (8.8-10.2); CARBON DIOXIDE LEVEL 22 MEQ/L (21-32); CHLORIDE LEVEL 111 MEQ/L (98-107); CREATININE FOR GFR 0.76 MG/DL (0.55-1.02); GLOMERULAR FILTRATION RATE > 60.0 (>39); GLUCOSE, FASTING 99 MG/DL (83-110); MAGNESIUM LEVEL 1.5 MG/DL (1.8-2.4); POTASSIUM SERUM 4.3 MEQ/L (3.5-5.1); SODIUM LEVEL 141 MEQ/L (136-145)
[2016-12-16] MEDS: ADVAIR HFA 115/21MCG INHALER INH SCH (08:02)
[2016-12-16] MEDS: FAMOTIDINE 20 MG TAB PO SCH (08:11)
[2016-12-16] MEDS: predniSONE 5 MG TAB PO SCH (08:11)
[2016-12-16] MEDS: SUCRALFATE SUSP 1GM/10ML UD PO SCH ×2 (08:12→12:46)
[2016-12-16] MEDS: POTASSIUM CHLORIDE 10 MEQ SR TABLET PO SCH (08:12)
[2016-12-16] MEDS: ASPIRIN 325 MG TAB PO SCH (08:12)
[2016-12-16] MEDS: FLUTICASONE PROP 0.05% NASAL SPRAY 16 GM (FLONASE) SCH ×3 (08:13→09:00)
[2016-12-16] MEDS: KCL 40MEQ in NS 1000ML 1,000 ML IV SCH (09:55)
[2016-12-16] MEDS ORDERED: POTA10CA PO (11:02)
[2016-12-16] MEDS ORDERED: SIMV20TA2 PO (11:02)
[2016-12-16] MEDS: MAG SULF 1GM/100ML (MAG RUN) 1 GM in APPROPRIATE DILUENT 1 EA IV SCH ×2 (11:34→14:29)
[2016-12-16 14:00] VITALS: BP 134/65
[2016-12-16] MEDS: ACETAMINOPHEN TAB 650MG DOSE (2X325MG) PO PRN (14:29)
[2016-12-16] MEDS ORDERED: SODIUM CHLORIDE 0.9% INJ 10 ML SYR IV PRN (15:45)
--- NOTE | 2016-12-26 09:35 | DSES ---
DATE OF ADMISSION: 12/14/2016 DATE OF DISCHARGE: 12/16/2016 PRIMARY CARE PROVIDER: Elizabeth Lobo DO GASTOENTEROLOGIST: Aroldo Castillo MD WOODWORK TEACHER: Bryan Levy DO ONCOLOGIST: Pamela Cortez MD DISCHARGE DIAGNOSES: 1. Severe diarrhea and dehydration due to possibly mild Crohn disease flare. 2. Multiple electrolyte abnormalities. 3. Crohn disease. 4. History of recent stroke involving the right medial parietal lobe and punctate areas of the right occipital lobe due to blockage of the right posterior cerebral artery. 5. Metastatic nonsmall cell lung cancer adenocarcinoma with metastasis to lymph nodes diagnosed in 2016, status post radiation and chemotherapy. 6. Possible history of radiation pneumonitis. 7. History of chemotherapy-induced pancytopenia, improving. 8. Dyslipidemia. 9. Chronic obstructive pulmonary disease (COPD). 10. Hypertension. 11. Osteoarthritis. 12. Anxiety. 13. Gastroesophageal reflux disease. DISCHARGE MEDICATIONS: - potassium chloride 40 mEq by mouth twice a day - simvastatin 40 mg at bedtime - Tylenol 1000 mg by mouth every 8 hours as needed pain or fever - albuterol sulfate two puffs inhalation every 4 hours as needed - albuterol ipratropium solution, one solution every 4 hours as needed through nebulizer - Xanax 0.25 mg by mouth at bedtime as needed anxiety - aspirin 325 mg by mouth daily - cyanocobalamin 1000 mcg intramuscular (IM) once a month - cyclobenzaprine 10 mg by mouth three times a day as needed muscle spasms - Xopenex nebulizer solution, 1.25 mg four times a day as needed shortness of breath - magnesium oxide 400 mg by mouth twice a day - ondansetron 8 mg by mouth twice a day - prochlorperazine 10 mg by mouth as needed nausea or vomiting - Zantac two tablets by mouth twice a day - Advair Diskus 250/50 one puff inhalation twice a day - sulfasalazine 500 mg by mouth at bedtime - prednisone 5 mg daily HOSPITAL COURSE: This is a 71-year-old female who presented to the hospital with 1-week history of diarrhea since her discharge from the hospital in [place], where she admitted for acute stroke, presenting with visual disturbances and facial numbness. She was started on high-dose aspirin. In the emergency room, she was found to have severe hypokalemia with a potassium of 2.6, hypomagnesemia with magnesium of 1.6, hyponatremia with a sodium of 132. The patient's electrolytes were replaced, and the patient was given intravenous (IV) hydration. A gastrointestinal (GI) panel was negative. It was thought that the episode of diarrhea probably related to mild flare of Crohn's due to recent change in diet and medications. Her diarrhea improved spontaneously without any intervention. She did not need steroids. Her home medication of sulfasalazine and prednisone 5 mg was continued. On the day of discharge, she did not have any complaints. Her symptoms were mostly resolved. Her functional issue was at baseline. Her vital signs were stable. PHYSICAL EXAMINATION: VITAL SIGNS: Temperature 98.2, pulse 87, respiratory rate 18, blood pressure 134/65, pulse oximetry 99% in room air. GENERAL: The patient awake, alert, oriented times three. Sitting up in bed in no acute distress. HEENT: Normocephalic, atraumatic. Moist mucous membranes. Anicteric eyes. CHEST: Clear to auscultation. CARDIOVASCULAR: S1, S2. Regular. ABDOMEN: Soft, nontender. Bowel sounds present. EXTREMITIES: No edema. LABORATORY DATA: WBC 4.2, hemoglobin 9.3, platelet 123. Sodium 141, potassium 4.3, chloride 111, bicarbonate 22, BUN 8, creatinine 0.7, glucose 99, calcium 8.2, magnesium 1.5 replaced. Blood cultures no growth after 5 days. Gastrointestinal panel was negative. DISPOSITION: The patient is discharged home in a stable condition. DISCHARGE INSTRUCTIONS: The patient to followup with primary care provider in 1 week. Diet as tolerated. Activity as tolerated.
== END 2016-12-16 16:30 | disposition home or self-care (01) ==
LOC: M ED 12:31 → M ED INP 18:59 → M MSPAV 12-15
PROVIDERS: ADMIT Internal Medicine; ATTEND Internal Medicine Nephrology
DX: E87.8 Other disorders of electrolyte and fluid balance, not elsewhere classified (principal); R19.7 Diarrhea, unspecified; E86.0 Dehydration; K50.90 Crohn's disease, unspecified, without complications; Z86.73 Personal history of transient ischemic attack (TIA), and cerebral infarction without residual deficits; C34.90 Malignant neoplasm of unspecified part of unspecified bronchus or lung; C77.9 Secondary and unspecified malignant neoplasm of lymph node, unspecified; E78.4 Other hyperlipidemia; J44.9 Chronic obstructive pulmonary disease, unspecified; I11.9 Hypertensive heart disease without heart failure; E87.6 Hypokalemia; J70.0 Acute pulmonary manifestations due to radiation; K21.9 Gastro-esophageal reflux disease without esophagitis; F41.9 Anxiety disorder, unspecified; Z87.891 Personal history of nicotine dependence; Z79.51 Long term (current) use of inhaled steroids; Z79.82 Long term (current) use of aspirin; Z79.899 Other long term (current) drug therapy
CPT/HCPCS: 36415; 80048; 83735; 85025; 85027; 86140; 87040; 87507; 93005; 94640; 94664; 96361; 96372; 96374; 99285; G0378; J1650; J2405; J3475

== ENCOUNTER 2017-01-01 09:38 | Inpatient (IN) | payer MEDICARE ==
[~2017-01-01] VITALS: Ht 167.6 cm; Wt 61.0 kg
[2017-01-01] MEDS: FUROSEMIDE 40 MG TAB PO SCH (09:00)
[~2017-01-01 09:38] MED LIST changes: +ASPI325T PO; +CYAN1000VL IM; +SIMV20TA2 PO
[2017-01-01] MEDS ORDERED: ASPIRIN 81 MG CHEW TABLET PO ONE (10:00)
--- NOTE | 2017-01-01 11:36 | REP ---
Portable chest x-ray: Semi-erect AP view. History: Chest pain. Comparison study: April 14, 2016. Findings: There is chronic elevation right hemidiaphragm again seen. Gcnevz-i-vmpa catheter is noted via the right internal jugular vein with its tip in the expected location of the superior vena cava. EKG monitoring electrodes are seen. There is chronic fibrosis and volume loss in the right perihilar region suggesting previous postradiation change. No new infiltrate is seen. No evidence of pleural effusion. Impression: Stable chronic changes right chest. No acute infiltrate seen. Jilrvf-U-Pfvl catheter in place. Signed by Alon Cotton MD 01/01/2017 02:18 P
[2017-01-01] MEDS ORDERED: ONDANSETRON 4MG/2ML VIAL (J2405) IV ONE (12:30)
[2017-01-01 12:33] LABS: BASO % 0.3 % (0.0-1.0); EOS # 0.1 10^3/uL (0.0-0.50); EOS % 1.6 % (0.0-3.0); IMMATURE GRANULOCYTE % 0.5 % (0-0); LYMPH # 0.7 10^3/uL (1.5-4.5); LYMPH % 11.4 % (24.0-44.0); MEAN CORPUSCULAR HEMOGLOBIN 33.7 pg (27.0-33.0); MEAN CORPUSCULAR HGB CONC 34.4 g/dl (32.0-36.5); MEAN CORPUSCULAR VOLUME 98.1 fl (80.0-96.0); MONO # 0.8 10^3/uL (0.0-0.8); MONO % 13.3 % (0.0-5.0); NEUTROPHILS # 4.2 10^3/uL (1.8-7.7); NEUTROPHILS % 72.9 % (36.0-66.0); PLATELET COUNT, AUTOMATED 121 10^3/uL (150-450); RED CELL DISTRIBUTION WIDTH 11.9 % (11.5-14.5); WHITE BLOOD COUNT 5.8 10^3/uL (4.0-10.0)
[2017-01-01 12:37] LABS: ALBUMIN 3.9 GM/DL (3.2-5.2); ALBUMIN/GLOBULIN RATIO 1.11 (1.00-1.93); ALKALINE PHOSPHATASE 81 U/L (45-117); ALT/SGPT 14 U/L (12-78); ANION GAP 10 MEQ/L (8-16); AST/SGOT 23 U/L (15-37); BILIRUBIN,DIRECT 0.2 MG/DL (0.0-0.2); BILIRUBIN,TOTAL 1.2 MG/DL (0.2-1.0); BLOOD UREA NITROGEN 9 MG/DL (7-18); CALCIUM LEVEL 9.2 MG/DL (8.8-10.2); CARBON DIOXIDE LEVEL 29 MEQ/L (21-32); CHLORIDE LEVEL 97 MEQ/L (98-107); CREATININE FOR GFR 0.97 MG/DL (0.55-1.02); GLOMERULAR FILTRATION RATE > 60.0 (>39); GLUCOSE, FASTING 101 MG/DL (83-110); MAGNESIUM LEVEL 1.9 MG/DL (1.8-2.4); POTASSIUM SERUM 4.2 MEQ/L (3.5-5.1); SODIUM LEVEL 136 MEQ/L (136-145); TOTAL PROTEIN 7.4 GM/DL (6.4-8.2)
[2017-01-01] MEDS ORDERED: ISOVUE-370 76% 100ML VIAL (Q9967) As Ordered ONE (12:44)
--- NOTE | 2017-01-01 13:45 | REP ---
CT BRAIN WITHOUT CONTRAST: HISTORY: Headache and dizziness. Comparison CT study May 02, 2015. CT FINDINGS: Digital preliminary technical services manager radiograph is unremarkable. The patient is edentulous. Bone window settings show no abnormality. Visualized paranasal sinuses are clear. No intraorbital abnormality is seen. There is minimal diffuse cerebral atrophy. No evidence intracranial hemorrhage is seen. No infarction is noted. No mass, extra-axial fluid collection or midline shift is seen. IMPRESSION: Minimal diffuse atrophy. Otherwise negative noncontrast head CT. Signed by Alon Cotton MD 01/01/2017 02:18 P
--- NOTE | 2017-01-01 14:01 | REP ---
CT pulmonary angiogram: With IV contrast. History: Chest pressure. Dizziness. There is a history of lung carcinoma status post radiation therapy. There is also a history of Crohn's disease and colon resection. Comparison studies: Comparison chest CT study November 01, 2016. Contrast dose: 75 cc's of Isovue [address] technique: Helical scanning is acquired and overlapping 1.5 mm and contiguous 3 mm axial images are reformatted. In addition, a 3-D work station is deployed to generate thick slab maximum intensity projection images in sagittal and coronal imaging projections. CT pulmonary angiographic findings: There is good opacification of the pulmonary arterial tree. There is a filling defect in the left lower lobe pulmonary arterial tree consistent with a pulmonary embolus. This is the only thrombus seen in the pulmonary arterial tree. There is a small to moderate right pleural effusion which has increased somewhat since the prior study. Post radiation fibrosis change is seen fairly extensively in the right perihilar distribution and there is volume loss in the right lung as before. There is a 0.8 cm new pulmonary nodule in the right lower lobe on image number 48 of 95 of today's study series 502. There is another new pulmonary nodule in the right upper lobe on image 28 of 95 of today's study. This measures 0.5 cm in diameter. There are two more new nodular densities in the left upper lobe anteriorly seen on image numbers 44 and 34. These are suspicious for metastatic disease. Lastly there is a new nodule in the right upper lobe anteriorly on image 39. These are all smaller than 1 cm. A small quantity of pericardial fluid is seen similar to the prior CT study of November 01, 2016. There are granulomatous calcifications in the spleen. There are upper abdominal retroperitoneal lymph nodes and mild retrocrural lymphadenopathy is seen. The adenopathy in the upper abdomen appears to have advanced. Impression: 1. Positive CT pulmonary angiogram for a single pulmonary arterial thrombus in the left lower lobe pulmonary artery. 2. Increase in the size of right pleural effusion. Very small left pleural effusion. 3. New bilateral pulmonary nodules ranging up to 0.8 cm in size consistent with pulmonary metastases. 4. Progressive upper abdominal and retrocrural lymphadenopathy. Signed by Alon Cotton MD 01/01/2017 02:18 P
[2017-01-01] MEDS ORDERED: PROMETHAZINE INJ 25 MG/ML VIAL (J2550) IV ONE (14:30)
[2017-01-01] MEDS: MAGNESIUM OXIDE 400 MG TAB (MAG-OX) PO SCH ×2 (16:00→22:04)
[2017-01-01] MEDS ORDERED: HEPARIN DRIP 25,000 UNITS in APPROPRIATE DILUENT 1 EA IV SCH (17:28)
[2017-01-01] MEDS ORDERED: HEPARIN SOD (PORCINE) 5000 UNITS/ML VIAL IV PRN (17:30)
[2017-01-01] MEDS ORDERED: ALBUTEROL SULFATE 2.5 MG/0.5 ML INH NEB SOLN NEB PRN (17:45)
[2017-01-01] MEDS ORDERED: ONDANSETRON 4MG/2ML VIAL (J2405) IV PRN (17:45)
[2017-01-01] MEDS ORDERED: zolPIDEM TARTRATE 5 MG TAB PO PRN (17:45)
[2017-01-01] MEDS ORDERED: SIMV40TA2 PO (17:55)
[2017-01-01] MEDS ORDERED: PRED1TABL PO (17:55)
[2017-01-01] MEDS ORDERED: POTA20TA PO (17:55)
[2017-01-01] MEDS ORDERED: ZOFR8TAB PO (17:55)
[2017-01-01] MEDS ORDERED: RANI300T PO (17:55)
[2017-01-01] MEDS ORDERED: LEVALBUTEROL 1.25 MG/0.5 ML CONCENTRATE NEB INH PRN (18:15)
--- NOTE | 2017-01-01 18:15 | HPE ---
DATE OF ADMISSION: 01/01/2017 PRIMARY CARE PROVIDER: Dr. Linda Lobo TELEGRAPHIC INSTRUMENT SUPERVISOR: Dr. Levy ONCOLOGIST: Dr. Ndiaye in [place] MANAGER MOBILE: Dr. Castillo HISTORY OF PRESENT ILLNESS: The patient is a 71-year-old female with a past medical history significant for adenocarcinoma of the lung status post chemotherapy and radiation, Crohn's, cerebrovascular accident (CVA), chronic obstructive pulmonary disease (COPD), dyslipidemia, anxiety, gastroesophageal reflux disease (GERD), who presented to [facility] on 01/01/2017 for acute discomfort. The patient stated she started having a temperature of 99 since yesterday. The patient started having nausea. The patient also started to have a suboccipital headache with a cough. The patient started to complain about worsening dizziness. Today, the patient started to have acute onset of the pressure-like discomfort in the mid to left chest and discomfort has been persistent. She is not sure whether the pain is getting worse and what makes the pain worse or better. Initially, the pain was on the left flank area but now it is on the left to the mid chest. The patient does have a history of adenocarcinoma of the right lung diagnosed in 2014. The patient had chemotherapy and radiation. Last chemotherapy was performed in June 2016. PAST MEDICAL HISTORY: 1. Crohn's disease. 2. Recent stroke. 3. Adenocarcinoma of the lung status post chemotherapy and radiation. 4. History of radiation pneumonitis. 5. Chronic obstructive pulmonary disease (COPD). 6. Dyslipidemia. 7. Osteoarthritis. 8. Pancytopenia related to chemotherapy. 9. Anxiety. 10. Gastroesophageal reflux disease. ALLERGIES: FENTANYL, DILAUDID, INFLIXIMAB, MORPHINE, NON-STEROIDAL ANTI-INFLAMMATORY DRUGS (NSAIDS). High-dose PREDNISONE causes psychosis. PAST SURGICAL HISTORY: 1. Hysterectomy. 2. Cholecystectomy. 3. Multiple bowel surgeries. SOCIAL HISTORY: The patient used to smoke but quit many years ago. The patient is DO NOT RESUSCITATE (DNR)/DO NOT INTUBATE (DNI). REVIEW OF SYSTEMS: GENERAL: Complained of a low-grade temperature since yesterday. No chills. HEENT: No vision changes. No auditory changes. CARDIOVASCULAR: Complained of mid left chest pain persistent since this morning. Complained about tachycardia. RESPIRATORY: History of chronic obstructive pulmonary disease (COPD), increased cough. No sputum production. GASTROINTESTINAL (GI): The patient complained about nausea. No abdominal pain. No diarrhea. MUSCULOSKELETAL: Complained about increased suboccipital pain and generalized discomfort. Denies any joint pain. NEUROLOGICAL: No numbness or tingling. History of cerebrovascular accident (CVA). OBJECTIVE: VITAL SIGNS: Temperature is 97.1, pulse is 102, blood pressure is 145/67, pulse oximetry is 93% in room air. GENERAL: Anxious, mildly depressed, alert and oriented times three. No sign of acute distress. HEENT: Normocephalic, atraumatic. Extraocular motor grossly intact. CARDIOVASCULAR: Distant heart sounds, positive S1, S2, regular rate. LUNGS: Mild crackles at the lower base. No wheezes appreciated. ABDOMEN: Soft, nontender, nondistended. Bowel sounds present. No rebound. No guarding. MUSCULOSKELETAL: No edema. No sign of cyanosis. NEUROLOGICAL: Sensation to fine touch grossly intact. Muscle strength 5/5. LABORATORY DATA: WBC 5.8, hemoglobin 10.9, hematocrit 31.7, platelet count is 121. Sodium is 136, potassium 4.2, chloride is 97, carbon dioxide 29, BUN 9, creatinine 0.97, GFR greater than 60, fasting glucose 101, calcium is 9.2, magnesium 1.9, total bilirubin 1.2, direct bilirubin is 0.2, AST 23, ALT 14, alkaline phosphatase 81, total CK is 65, troponin I is less than 0.02 times two sets. BNP is 698, total protein 7.4, albumin is 3.9, lipase is 256. IMAGING STUDIES: CT angiogram of the chest shows positive PE in the left lower lobe. Increase in the size of right pleural effusion and small left pleural effusion. New bilateral pulmonary nodule measuring up to 0.8 cm in size consistent with a pulmonary metastasis. Progressive upper abdominal and retrocrural lymphadenopathy. ASSESSMENT AND PLAN: 1. Pulmonary embolism. The patient will be admitted to the progressive care unit (PCU) under inpatient status. The patient is started on the heparin drip. 2. Metastatic lung cancer. The patient was diagnosed with adenocarcinoma of the lung in 2014 status post chemotherapy and radiation. Chemotherapy was done in June 2016. The patient still has an Infusaport. The patient will followup with oncology, Dr. Ndiaye, in [place]. 3. History of cerebrovascular accident (CVA). Continue with aspirin. The patient has been following with Dr. Franco in the outpatient setting. 4. Crohn's disease. Continue home medications. 5. Chronic obstructive pulmonary disease (COPD). No exacerbation at this moment. Continue to monitor. Will have nebulizer as needed. 6. History of pancytopenia secondary to chemotherapy. 7. Anxiety. The patient has Xanax as needed which is also her home medication. 8. Gastroesophageal reflux disease, on Pepcid. 9. Deep vein thrombosis (DVT) prophylaxis. The patient will be on a heparin drip.
[2017-01-01 19:48] LABS: INR 1.11
[2017-01-01] MEDS: ADVAIR HFA 115/21MCG INHALER INH SCH (20:12)
[2017-01-01] MEDS ORDERED: FAMOTIDINE 20 MG TAB PO SCH (21:00)
[2017-01-01 21:30] VITALS: BP 131/81
[2017-01-01] MEDS: LOPERAMIDE 2 MG CAP PO PRN (22:03)
[2017-01-01] MEDS: SIMVASTATIN 40 MG TAB PO SCH (22:05)
[2017-01-01] MEDS: raNITIdine SYRUP 150 MG/10 ML UDC PO SCH (22:40)
[2017-01-01] MEDS: ACYCLOVIR 5% OINT 15GM TOP SCH (22:40)
[2017-01-01] MEDS: ALPRAZolam 0.25 MG TAB PO PRN (23:20)
[2017-01-01 23:28] LABS: ANION GAP 8 MEQ/L (8-16); BLOOD UREA NITROGEN 10 MG/DL (7-18); CALCIUM LEVEL 8.6 MG/DL (8.8-10.2); CARBON DIOXIDE LEVEL 27 MEQ/L (21-32); CHLORIDE LEVEL 99 MEQ/L (98-107); CREATININE FOR GFR 0.94 MG/DL (0.55-1.02); GLOMERULAR FILTRATION RATE > 60.0 (>39); GLUCOSE, FASTING 121 MG/DL (83-110); MAGNESIUM LEVEL 1.6 MG/DL (1.8-2.4); SODIUM LEVEL 134 MEQ/L (136-145)
[2017-01-01 23:39] LABS: POTASSIUM SERUM 3.1 MEQ/L (3.5-5.1)
[2017-01-02] VITALS: BP 104/58
[2017-01-02] MEDS ORDERED: POTASSIUM CHLORIDE 10 MEQ SR TABLET PO ONE ×2 (01:15→03:00)
[2017-01-02] MEDS ORDERED: MAG SULF 1GM/100ML (MAG RUN) 1 GM in APPROPRIATE DILUENT 1 EA IV ONE (01:15)
[2017-01-02] MEDS: ACETAMINOPHEN TAB 650MG DOSE (2X325MG) PO PRN ×3 (02:01→18:14)
[2017-01-02] MEDS: SODIUM CHLORIDE 0.9% INJ 10 ML SYR IV PRN ×2 (03:06→05:49)
[2017-01-02 05:52] VITALS: BP 113/71
[2017-01-02 05:57] LABS: MEAN CORPUSCULAR HEMOGLOBIN 33.3 pg (27.0-33.0); MEAN CORPUSCULAR HGB CONC 34.7 g/dl (32.0-36.5); MEAN CORPUSCULAR VOLUME 96.1 fl (80.0-96.0); PLATELET COUNT, AUTOMATED 113 10^3/uL (150-450); RED CELL DISTRIBUTION WIDTH 11.9 % (11.5-14.5); WHITE BLOOD COUNT 4.9 10^3/uL (4.0-10.0)
[2017-01-02 06:21] LABS: ANION GAP 7 MEQ/L (8-16); BLOOD UREA NITROGEN 8 MG/DL (7-18); CALCIUM LEVEL 8.2 MG/DL (8.8-10.2); CARBON DIOXIDE LEVEL 30 MEQ/L (21-32); CHLORIDE LEVEL 99 MEQ/L (98-107); CREATININE FOR GFR 0.83 MG/DL (0.55-1.02); GLOMERULAR FILTRATION RATE > 60.0 (>39); GLUCOSE, FASTING 88 MG/DL (83-110); MAGNESIUM LEVEL 2.2 MG/DL (1.8-2.4); POTASSIUM SERUM 4.2 MEQ/L (3.5-5.1); SODIUM LEVEL 136 MEQ/L (136-145)
[2017-01-02] MEDS: ADVAIR HFA 115/21MCG INHALER INH SCH ×2 (07:32→20:31)
[2017-01-02 08:00] VITALS: BP 117/74
[2017-01-02] MEDS: FUROSEMIDE 40 MG TAB PO SCH ×2 (09:00→10:34)
[2017-01-02] MEDS ORDERED: ASPIRIN 325 MG TAB PO SCH (09:00)
[2017-01-02] MEDS: raNITIdine SYRUP 150 MG/10 ML UDC PO SCH (09:00)
[2017-01-02] MEDS ORDERED: predniSONE 5 MG TAB PO SCH (09:00)
[2017-01-02] MEDS: MAGNESIUM OXIDE 400 MG TAB (MAG-OX) PO SCH ×3 (09:16→20:35)
[2017-01-02] MEDS: ASPIRIN 81 MG CHEW TABLET PO SCH (09:17)
--- NOTE | 2017-01-02 10:23 | ECGEPIP ---
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
--- NOTE | 2017-01-02 10:30 | ECGEPIP ---
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
[2017-01-02] MEDS: LOPERAMIDE 2 MG CAP PO PRN (10:33)
[2017-01-02] MEDS: SODIUM CHLORIDE 0.9% INJ 10 ML SYR IV SCH (10:35)
[2017-01-02] MEDS: ACYCLOVIR 5% OINT 15GM TOP SCH ×2 (10:37→20:37)
[2017-01-02] MEDS ORDERED: ENOX60IN3 SC (11:08)
[2017-01-02] MEDS ORDERED: NORCO, ANEXSIA 5/325MG TABLET (HYDROcodone/ACETAMINOPHEN) PO PRN (11:15)
[2017-01-02] MEDS: RANITIDINE 300 MG PO SCH ×2 (11:30→20:36)
[2017-01-02 12:00] VITALS: BP 120/76
[2017-01-02] MEDS ORDERED: ENOXAPARIN 60 MG/0.6 ML SYR (J1650) SC ONE (13:00)
[2017-01-02 16:00] VITALS: BP 122/71
[2017-01-02 20:00] VITALS: BP 116/64
[2017-01-02] MEDS: SIMVASTATIN 40 MG TAB PO SCH (20:36)
[2017-01-02] MEDS: ENOXAPARIN 60 MG/0.6 ML SYR (J1650) SC SCH (20:41)
--- NOTE | 2017-01-02 20:56 | IPN ---
DATE: 01/02/2017 Patient seen and examined. No acute events overnight. Reported chest pain has resolved. Reported some headache, which has also improved. Denies any shortness of breath, fevers, or chills. Reported mild cough. VITAL SIGNS: Temperature 99.1, pulse 107, respirations 19, blood pressure 122/71, pulse oximetry 93% on room air. LABORATORY DATA: WBC 4.9, hemoglobin and hematocrit 9.3/26.8, platelets 113. Chemistry: Sodium 136, potassium 4.2, chloride 99, bicarbonate 30, BUN 8, creatinine 0.83. PHYSICAL EXAMINATION: GENERAL: Patient alert and oriented times three, in no acute distress. HEENT: Normocephalic, atraumatic. PULMONARY: Bilateral clear to auscultation. CARDIAC: Regular rate and rhythm, normal S1, S2. ABDOMEN: Soft, nontender. Positive bowel sounds. EXTREMITIES: No clubbing, cyanosis, or edema. ASSESSMENT AND PLAN: This is a 71-year-old female patient with underlying medical history of adenocarcinoma status post chemotherapy and radiation, Crohn's disease, CVA, recent, chronic obstructive pulmonary disease (COPD), dyslipidemia, anxiety, gastroesophageal reflux disease (GERD), presented to [facility] with chest pain and headache, CT scan of the head was done, was found to have pulmonary embolus (PE) and new pulmonary nodule. 1. Pulmonary embolus (PE). Case was discussed with patient's senior java programmer analyst/oncologist, Dr. Ndiaye, who recommended patient to followup with him next week and preferred to place the patient on Lovenox. Heparin drip was discontinued. Patient placed on Lovenox. 2. Metastatic lung cancer suggestive on CT scan. Patient was diagnosed with adenocarcinoma in 2014. Status post chemotherapy and radiation, was last done in June 2016. Was in remission as of October followup. Case discussed with Dr. Ndiaye at [place], senior java programmer analyst/oncologist, will followup the patient next week. 3. CVA. Continue aspirin at 81. Patient has followup with Dr. Franco as outpatient. 4. Crohn's disease. Continue home medication. 5. Chronic obstructive pulmonary disease (COPD). Patient currently comfortable. Continue home medication. Nebulizer as needed. 6. History of pancytopenia, secondary to chemotherapy. Continue to monitor. 7. Anxiety. Continue Xanax. 8. Gastroesophageal reflux disease (GERD). Continue Pepcid. 9. Deep venous thrombosis (DVT) prophylaxis. Patient on Lovenox. DISPOSITION: Pending home safety evaluation.
[2017-01-02] MEDS: ALPRAZolam 0.25 MG TAB PO PRN (22:04)
[2017-01-03] VITALS: BP 90/50
[2017-01-03 04:00] VITALS: BP 106/55
[2017-01-03 05:37] LABS: MEAN CORPUSCULAR HEMOGLOBIN 33.5 pg (27.0-33.0); MEAN CORPUSCULAR HGB CONC 34.2 g/dl (32.0-36.5); MEAN CORPUSCULAR VOLUME 97.9 fl (80.0-96.0); PLATELET COUNT, AUTOMATED 120 10^3/uL (150-450); WHITE BLOOD COUNT 3.4 10^3/uL (4.0-10.0)
[2017-01-03 06:42] LABS: ANION GAP 8 MEQ/L (8-16); BLOOD UREA NITROGEN 10 MG/DL (7-18); CALCIUM LEVEL 8.4 MG/DL (8.8-10.2); CARBON DIOXIDE LEVEL 29 MEQ/L (21-32); CHLORIDE LEVEL 102 MEQ/L (98-107); CREATININE FOR GFR 0.78 MG/DL (0.55-1.02); GLOMERULAR FILTRATION RATE > 60.0 (>39); GLUCOSE, FASTING 85 MG/DL (83-110); POTASSIUM SERUM 3.5 MEQ/L (3.5-5.1); SODIUM LEVEL 139 MEQ/L (136-145)
[2017-01-03] MEDS: ADVAIR HFA 115/21MCG INHALER INH SCH (07:15)
[2017-01-03] MEDS ORDERED: POTASSIUM CHLORIDE 10 MEQ SR TABLET PO ONE (07:30)
[2017-01-03 08:00] VITALS: BP 115/80
[2017-01-03] MEDS: SODIUM CHLORIDE 0.9% INJ 10 ML SYR IV SCH (08:10)
[2017-01-03] MEDS: ASPIRIN 81 MG CHEW TABLET PO SCH (08:11)
[2017-01-03] MEDS: RANITIDINE 300 MG PO SCH (08:11)
[2017-01-03] MEDS: MAGNESIUM OXIDE 400 MG TAB (MAG-OX) PO SCH (08:11)
[2017-01-03] MEDS: FUROSEMIDE 40 MG TAB PO SCH (08:11)
[2017-01-03] MEDS: ACYCLOVIR 5% OINT 15GM TOP SCH (08:12)
[2017-01-03] MEDS ORDERED: predniSONE 5 MG TAB PO SCH (09:00)
[2017-01-03] MEDS: ENOXAPARIN 60 MG/0.6 ML SYR (J1650) SC SCH (10:26)
[2017-01-03] MEDS ORDERED: XANA0.25 PO (12:04)
[2017-01-03] MEDS ORDERED: ASPI81TA21 PO (15:49)
--- NOTE | 2017-01-06 17:27 | DSES ---
DATE OF ADMISSION: 01/01/2017 DATE OF DISCHARGE: 01/03/2017 ADDENDUM TO DISCHARGE: Time spent arranging and coordinating discharge: 35 minutes.
--- NOTE | 2017-01-06 17:43 | DSES ---
DATE OF ADMISSION: 01/01/2017 DATE OF DISCHARGE: 01/03/2017 PRIMARY CARE PROVIDER: Dr. Linda Lobo ONCOLOGIST: Dr. Sal Ndiaye CALENDER LET OFF HELPER: Dr. Levy FINAL DIAGNOSES: 1. Pulmonary embolism (PE). 2. Possible metastatic lung cancer. 3. History of adenocarcinoma of the lung. 4. Cerebrovascular accident (CVA) history. 5. Crohn's disease. 6. Chronic obstructive pulmonary disease (COPD). 7. History of pancytopenia secondary to chemotherapy. 8. Anxiety. 9. Gastroesophageal reflux disease (GERD). HISTORY OF PRESENT ILLNESS: This is a 71-year-old female patient with underlying medical history of adenocarcinoma of the lung status post chemotherapy and radiation, Crohn's disease, cerebrovascular accident (CVA) recently in October, chronic obstructive pulmonary disease (COPD), dyslipidemia, anxiety, gastroesophageal reflux disease (GERD) who presented to [facility] with acute discomfort of the chest and started having temperature of 99 and the patient also had nausea. She also started to have headache and a cough with some lightheadedness with also pressure-like chest discomfort that persisted. CT scan was done in the emergency department (ED) showing new pulmonary nodule as well as pulmonary embolism (PE). Subsequently, the patient was admitted to the hospital. HOSPITAL COURSE: The patient was initially started on heparin drip by admitting physician. Case was discussed with the patient's oncologist, Dr. Ndiaye, who was informed of the new nodules and recommended Lovenox. Subsequently, the patient was switched to Lovenox. Patient and family services (PFS) was consulted to check the ansari of Lovenox. Subsequently, case was discussed with the patient's pulmonology team, Dr. Urias and Dr. Levy. Home safety evaluation was done. As of right now, plan was made for the patient to followup with Dr. Levy as well as Dr. Ndiaye as outpatient. The patient is tolerating oral, able to ambulate, passed physical therapy, ready for discharge for further care as outpatient. VITAL SIGNS: Temperature 98.7, pulse 103, respiratory rate 18, blood pressure 115/80, pulse oximetry 95% on room air. GENERAL: Patient alert, comfortable, in no acute distress. HEENT: Normocephalic, atraumatic. PULMONARY: Bilaterally clear to auscultation. Distant breath sounds. CARDIOVASCULAR: Regular rate and rhythm with normal S1, S2. ABDOMEN: Soft, nontender. Positive bowel sounds. EXTREMITIES: No clubbing, cyanosis, or edema. LABORATORY DATA: WBC 3.4, hemoglobin and hematocrit 9.4/27.5, platelets 120. Chemistry: Sodium 139, potassium 3.5, chloride 102, bicarbonate 29, BUN 10, creatinine 0.78. DISCHARGE MEDICATIONS: - Lovenox 60 mg IV twice a day - Ventolin inhaler every four hours as needed - DuoNebs inhalation every four hours as needed - aspirin has been reduced to 81 mg by mouth daily - vitamin B12 1000 mcg intramuscular (IM) once a month - Xopenex inhalation nebulizer four times a day as needed - magnesium oxide 400 mg by mouth three times a day - Zofran 8 mg by mouth at bedtime and daily as needed - potassium chloride 40 mEq by mouth daily - prednisone 5 mg by mouth every two day - ranitidine 300 mg by mouth twice a day - Advair Diskus 250/50 mcg inhalation twice a day - Zocor 40 mg by mouth at bedtime - sulfasalazine 500 mg by mouth at bedtime - Xanax 0.25 mg by mouth three times a day as needed DISCHARGE INSTRUCTIONS: The patient is instructed to followup with oncologist, Dr. Ndiaye, in one week and also with primary care provider in seven days and with plumber maintenance in 1-2 weeks. Case discussed with Dr. Ndiaye and Dr. Levy. Home healthcare referral made. Return to the hospital if symptoms worsen.
== END 2017-01-03 16:20 | disposition home health service (06) | DRG 176 ==
LOC: M ED 09:38 → M ED INP 17:26 → M PCU 21:26
PROVIDERS: ADMIT Internal Medicine; ATTEND Hospitalist
DX: I26.99 Other pulmonary embolism without acute cor pulmonale (principal); J90 Pleural effusion, not elsewhere classified; K50.90 Crohn's disease, unspecified, without complications; Z80.1 Family history of malignant neoplasm of trachea, bronchus and lung; J44.9 Chronic obstructive pulmonary disease, unspecified; M19.90 Unspecified osteoarthritis, unspecified site; E78.5 Hyperlipidemia, unspecified; Z86.73 Personal history of transient ischemic attack (TIA), and cerebral infarction without residual deficits; F41.9 Anxiety disorder, unspecified; K21.9 Gastro-esophageal reflux disease without esophagitis; Z88.5 Allergy status to narcotic agent; Z88.8 Allergy status to other drugs, medicaments and biological substances; R91.1 Solitary pulmonary nodule; Z79.82 Long term (current) use of aspirin

== ENCOUNTER 2017-02-03 15:03 | Emergency (ER) | payer MEDICARE ==
[~2017-02-03] VITALS: Ht 167.6 cm; Wt 63.6 kg
[~2017-02-03 15:03] MED LIST changes: +ASPI81TA21 PO; +ENOX60IN3 SC; +PRED1TABL PO; +RANI300T PO; +SIMV40TA2 PO; +ZOFR8TAB PO
[2017-02-03] MEDS ORDERED: ASPI325T PO (15:19)
[2017-02-03] MEDS ORDERED: ZOLO25TA PO (15:19)
[2017-02-03] MEDS ORDERED: NS 1,000 ML IV ONE ×2 (17:15→23:00)
--- NOTE | 2017-02-03 18:42 | ECGEPIP ---
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
[2017-02-03 18:47] LABS: BASO % 0.5 % (0.0-1.0); EOS # 0.1 10^3/uL (0.0-0.50); EOS % 1.7 % (0.0-3.0); IMMATURE GRANULOCYTE % 0.2 % (0-0); LYMPH # 0.7 10^3/uL (1.5-4.5); LYMPH % 11.2 % (24.0-44.0); MEAN CORPUSCULAR HEMOGLOBIN 33.1 pg (27.0-33.0); MEAN CORPUSCULAR HGB CONC 35.3 g/dl (32.0-36.5); MEAN CORPUSCULAR VOLUME 93.9 fl (80.0-96.0); MONO # 0.8 10^3/uL (0.0-0.8); MONO % 13.2 % (0.0-5.0); NEUTROPHILS # 4.3 10^3/uL (1.8-7.7); NEUTROPHILS % 73.2 % (36.0-66.0); PLATELET COUNT, AUTOMATED 106 10^3/uL (150-450); RED CELL DISTRIBUTION WIDTH 11.9 % (11.5-14.5); WHITE BLOOD COUNT 5.9 10^3/uL (4.0-10.0)
[2017-02-03 19:01] LABS: INR 1.21
[2017-02-03 19:16] LABS: ALBUMIN 3.8 GM/DL (3.2-5.2); ALBUMIN/GLOBULIN RATIO 1.23 (1.00-1.93); ALKALINE PHOSPHATASE 75 U/L (45-117); ALT/SGPT 12 U/L (12-78); ANION GAP 10 MEQ/L (8-16); AST/SGOT 15 U/L (7-37); BILIRUBIN,DIRECT 0.2 MG/DL (0.0-0.2); BILIRUBIN,TOTAL 1.1 MG/DL (0.2-1.0); BLOOD UREA NITROGEN 13 MG/DL (7-18); CALCIUM LEVEL 9.1 MG/DL (8.8-10.2); CARBON DIOXIDE LEVEL 27 MEQ/L (21-32); CHLORIDE LEVEL 103 MEQ/L (98-107); CREATININE FOR GFR 0.78 MG/DL (0.55-1.02); GLOMERULAR FILTRATION RATE > 60.0 (>39); GLUCOSE, FASTING 89 MG/DL (83-110); MAGNESIUM LEVEL 1.8 MG/DL (1.8-2.4); POTASSIUM SERUM 3.1 MEQ/L (3.5-5.1); SODIUM LEVEL 140 MEQ/L (136-145); TOTAL PROTEIN 6.9 GM/DL (6.4-8.2)
[2017-02-03] MEDS ORDERED: KCL 10MEQ IN 100ML SWI (KRUN) 10 MEQ in APPROPRIATE DILUENT 1 EA IV ONE ×2 (19:45)
[2017-02-04 00:38] VITALS: BP 137/93
== END 2017-02-04 00:42 | disposition home or self-care (01) ==
LOC: M ED 15:03
DX: E87.6 Hypokalemia (principal); C34.90 Malignant neoplasm of unspecified part of unspecified bronchus or lung; Z86.73 Personal history of transient ischemic attack (TIA), and cerebral infarction without residual deficits; J45.909 Unspecified asthma, uncomplicated; E78.5 Hyperlipidemia, unspecified; Z87.442 Personal history of urinary calculi; Z87.440 Personal history of urinary (tract) infections; M79.7 Fibromyalgia; E53.8 Deficiency of other specified B group vitamins; F41.9 Anxiety disorder, unspecified; G43.909 Migraine, unspecified, not intractable, without status migrainosus; K50.90 Crohn's disease, unspecified, without complications; D61.818 Other pancytopenia; Z90.49 Acquired absence of other specified parts of digestive tract; Z87.891 Personal history of nicotine dependence; Z79.82 Long term (current) use of aspirin; Z79.899 Other long term (current) drug therapy; Z88.8 Allergy status to other drugs, medicaments and biological substances; Z88.5 Allergy status to narcotic agent; Z88.6 Allergy status to analgesic agent

== ENCOUNTER 2017-02-06 12:08 | Outpatient (CLI) | payer MEDICARE ==
[~2017-02-06 12:08] MED LIST changes: +ZOLO25TA PO
[2017-02-06 12:30] VITALS: BP 129/57
[2017-02-06] MEDS ORDERED: SODIUM CHLORIDE 0.9% INJ 10 ML SYR IV PRN (13:15)
[2017-02-06] MEDS ORDERED: KCL 10MEQ IN 100ML SWI (KRUN) 10 MEQ in APPROPRIATE DILUENT 1 EA IV ONE ×2 (13:30)
[2017-02-06] MEDS: MAG SULF 1GM/100ML (MAG RUN) 1 GM in APPROPRIATE DILUENT 1 EA IV SCH ×2 (14:10→15:15)
[2017-02-07] MEDS ORDERED: SODIUM CHLORIDE 0.9% INJ 10 ML SYR IV SCH (09:00)
== END 2017-02-06 16:40 | disposition hospice, home (50) ==
LOC: M OPCLI4PR 12:08 → M PED 12:13 → M OPCLI4PR 16:40
PROVIDERS: ATTEND Internal Medicine
DX: E83.42 Hypomagnesemia (principal); K50.10 Crohn's disease of large intestine without complications; E87.6 Hypokalemia; D63.0 Anemia in neoplastic disease; C34.92 Malignant neoplasm of unspecified part of left bronchus or lung; Z79.82 Long term (current) use of aspirin; Z79.899 Other long term (current) drug therapy; Z88.5 Allergy status to narcotic agent; Z88.8 Allergy status to other drugs, medicaments and biological substances
CPT/HCPCS: 96365; 96366; J3475

== ENCOUNTER → 2017-04-05 | Outpatient (REF) ==
[2017-04-05 07:29] LABS: ANION GAP 7 MEQ/L (8-16); BLOOD UREA NITROGEN 14 MG/DL (7-18); CALCIUM LEVEL 8.2 MG/DL (8.8-10.2); CARBON DIOXIDE LEVEL 25 MEQ/L (21-32); CHLORIDE LEVEL 110 MEQ/L (98-107); CREATININE FOR GFR 0.78 MG/DL (0.55-1.02); GLOMERULAR FILTRATION RATE > 60.0 (>39); GLUCOSE, FASTING 99 MG/DL (70-100); MAGNESIUM LEVEL 1.5 MG/DL (1.8-2.4); SODIUM LEVEL 142 MEQ/L (136-145)
== END ==
LOC: SKLAB4 08:00
DX: E87.6 Hypokalemia (principal); E83.42 Hypomagnesemia

== ENCOUNTER 2017-04-14 19:44 | Inpatient (IN) | payer MEDICARE ==
[2017-04-14] MEDS: LORazepam 2 MG/ML VIAL (J2060) IV (21:16)
[2017-04-14] MEDS: ONDANSETRON 4MG/2ML VIAL (J2405) IV (21:30)
[2017-04-14] MEDS: MORPHINE 4 MG/ML 1ML VIAL (J2270) IV ×2 (21:46→23:04)
[2017-04-14] MEDS ORDERED: PROMETHAZINE 12.5 MG SUPP PR (23:00)
[2017-04-14] MEDS ORDERED: MORPHINE 10MG/0.5ML ORAL CONCENTRATE SOLUTION U/D SL (23:00)
[2017-04-14] MEDS ORDERED: LOPERAMIDE ORAL SOLN 1MG/5ML UD PO (23:00)
[2017-04-14] MEDS: PROMETHAZINE INJ 25 MG/ML VIAL (J2550) IV (23:04)
[2017-04-15] MEDS ORDERED: PROMETHAZINE INJ 25 MG/ML VIAL (J2550) IV (00:30)
[2017-04-15] MEDS ORDERED: ALBUTEROL SULFATE 2.5 MG/0.5 ML INH NEB SOLN NEB (00:45)
[2017-04-15] MEDS: LORazepam 0.5 MG TAB PO ×5 (02:27→20:04)
[2017-04-15] MEDS: MORPHINE 2 MG/ML 1ML SYRINGE (J2270) IV (02:43)
[2017-04-15] MEDS: MORPHINE 10MG/0.5ML ORAL CONCENTRATE SOLUTION U/D SL ×6 (03:00→23:23)
[2017-04-15] MEDS: ONDANSETRON 4 MG ORAL DISINTEGRATING TAB (S0181) SL ×4 (06:37→23:23)
[2017-04-15] MEDS: ADVAIR HFA 115/21MCG INHALER INH ×2 (09:35→21:14)
[2017-04-15] MEDS: sulfaSALAzine 500 MG TABEC PO ×2 (10:41→21:00)
[2017-04-15] MEDS: FAMOTIDINE 20 MG TAB PO ×2 (10:42→20:03)
[2017-04-15] MEDS: MAGNESIUM OXIDE 400 MG TAB (MAG-OX) PO ×3 (10:42→20:04)
[2017-04-15] MEDS: predniSONE 5 MG TAB PO (10:44)
[2017-04-15] MEDS: METOPROLOL SUCC *XL* 25MG TAB (TopROL *XL*) PO (10:46)
[2017-04-15] MEDS: OMEPRAZOLE 20 MG CAP PO (20:03)
[2017-04-16] MEDS: MORPHINE 10MG/0.5ML ORAL CONCENTRATE SOLUTION U/D SL ×6 (03:33→23:08)
[2017-04-16] MEDS: ONDANSETRON 4 MG ORAL DISINTEGRATING TAB (S0181) SL ×3 (06:08→17:41)
[2017-04-16] MEDS: sulfaSALAzine 500 MG TABEC PO ×2 (09:00→21:00)
[2017-04-16] MEDS: MAGNESIUM OXIDE 400 MG TAB (MAG-OX) PO ×3 (09:00→21:00)
[2017-04-16] MEDS: FAMOTIDINE 20 MG TAB PO ×2 (09:00→21:00)
[2017-04-16] MEDS: predniSONE 5 MG TAB PO (09:00)
[2017-04-16] MEDS: METOPROLOL SUCC *XL* 25MG TAB (TopROL *XL*) PO (09:00)
[2017-04-16] MEDS: LORazepam 0.5 MG TAB PO ×4 (09:00→21:00)
[2017-04-16] MEDS: ADVAIR HFA 115/21MCG INHALER INH ×2 (09:00→21:00)
[2017-04-16] MEDS: OMEPRAZOLE 20 MG CAP PO (21:00)
[2017-04-17] MEDS: MORPHINE 10MG/0.5ML ORAL CONCENTRATE SOLUTION U/D SL ×6 (03:12→23:00)
[2017-04-17] MEDS: ONDANSETRON 4 MG ORAL DISINTEGRATING TAB (S0181) SL ×4 (06:00→16:35)
[2017-04-17] MEDS: ADVAIR HFA 115/21MCG INHALER INH ×2 (07:52→21:00)
[2017-04-17] MEDS: FAMOTIDINE 20 MG TAB PO (09:56)
[2017-04-17] MEDS: METOPROLOL SUCC *XL* 25MG TAB (TopROL *XL*) PO (09:56)
[2017-04-17] MEDS: LORazepam 0.5 MG TAB PO ×3 (09:56→16:35)
[2017-04-17] MEDS: predniSONE 5 MG TAB PO (09:56)
[2017-04-17] MEDS: sulfaSALAzine 500 MG TABEC PO (09:56)
[2017-04-17] MEDS: MAGNESIUM OXIDE 400 MG TAB (MAG-OX) PO ×2 (09:56→16:34)
[2017-04-18] MEDS: ONDANSETRON 4 MG ORAL DISINTEGRATING TAB (S0181) SL ×4 (00:43→17:00)
[2017-04-18] MEDS: MORPHINE 10MG/0.5ML ORAL CONCENTRATE SOLUTION U/D SL ×5 (02:52→17:53)
[2017-04-18] MEDS: ADVAIR HFA 115/21MCG INHALER INH ×2 (09:00→20:27)
[2017-04-18] MEDS ORDERED: SODIUM CHLORIDE 0.9% INJ 10 ML SYR IV (19:15)
[2017-04-19] MEDS: MORPHINE 10MG/0.5ML ORAL CONCENTRATE SOLUTION U/D SL ×7 (00:14→23:04)
[2017-04-19] MEDS: ONDANSETRON 4 MG ORAL DISINTEGRATING TAB (S0181) SL ×4 (00:14→17:03)
[2017-04-19] MEDS: SCOPOLAMINE 1MG TRANSDERMAL PATCH TOP (05:57)
[2017-04-19] MEDS: ADVAIR HFA 115/21MCG INHALER INH ×2 (07:35→20:39)
[2017-04-20] MEDS: ONDANSETRON 4 MG ORAL DISINTEGRATING TAB (S0181) SL ×2 (00:17→06:00)
[2017-04-20] MEDS: MORPHINE 10MG/0.5ML ORAL CONCENTRATE SOLUTION U/D SL ×2 (03:11→06:26)
[2017-04-20] MEDS: ADVAIR HFA 115/21MCG INHALER INH (08:00)
== END 2017-04-20 09:20 | disposition expired | DRG 948 ==
LOC: M MS5PR 04-15 18:10 → M ED 19:44 → M ED INP 22:56
DX: G89.3 Neoplasm related pain (acute) (chronic) (principal); E46 Unspecified protein-calorie malnutrition; C34.90 Malignant neoplasm of unspecified part of unspecified bronchus or lung; K91.2 Postsurgical malabsorption, not elsewhere classified; C79.9 Secondary malignant neoplasm of unspecified site; Z51.5 Encounter for palliative care; Z66 Do not resuscitate; I10 Essential (primary) hypertension; K21.9 Gastro-esophageal reflux disease without esophagitis; J44.9 Chronic obstructive pulmonary disease, unspecified; E78.5 Hyperlipidemia, unspecified; E87.6 Hypokalemia; Z86.711 Personal history of pulmonary embolism; I69.320 Aphasia following cerebral infarction; F41.9 Anxiety disorder, unspecified; Z88.5 Allergy status to narcotic agent; Z88.8 Allergy status to other drugs, medicaments and biological substances; Z79.899 Other long term (current) drug therapy; Z79.52 Long term (current) use of systemic steroids; K52.9 Noninfective gastroenteritis and colitis, unspecified